=== PATIENT | female | born 1955 | race Caucasian/White ===

== ENCOUNTER 2024-04-09 09:28 | Outpatient (OUT) | payer MEDICARE, SELFPAY ==
--- NOTE | 2024-04-09 | XR_ITS ---
The [address] [address] Patient Name: FLORINDA JAMESON MRN: [id number] date: 1955 Sex: F Assigned Patient Location: Current Patient Location: Accession/Order Number: [id number] Exam Date: 04/09/2024 09:29 Report Date: 04/12/2024 10:23 At the request of: RADHA AGOSTO Procedure: XR foot RT min 3V PROCEDURE: XR foot RT min 3V HISTORY: RIGHT FOOT PAIN COMPARISON: XR foot right 12/25/2022 FINDINGS: BONES:Mechanical fusion of the talocalcaneal joint, talonavicular and calcaneocuboid joints, osteotomy and repair of first metatarsal, effusion of the first toe interphalangeal joint. No appreciable hardware fracture or loosening. SOFT TISSUES:Mild soft tissue swelling distal dorsal foot. EFFUSION:None visible. OTHER: Negative. XR/XR foot RT min 3V IMPRESSION: 1. Stable surgical changes without evidence of hardware failure or change in alignment. 2. No appreciable acute bone abnormality. 3. Mild dorsal soft tissue swelling. Electronically authenticated by: CAMI WARREN Date: 04/12/2024 10:23
== END 2024-04-09 09:29 | disposition home or self-care (01) ==
PROVIDERS: Visit Provider Podiatrist Foot & Ankle Surgery
DX: M79.671 Pain in right foot (principal); M24.674 Ankylosis, right foot
CPT/HCPCS: 73630

== ENCOUNTER 2025-01-04 11:41 | Outpatient (OUT) | payer MEDICARE, SELFPAY ==
--- NOTE | 2025-01-04 11:50 | XR_ITS ---
The [address] [address] Patient Name: FLORINDA JAMESON MRN: [id number] date: 1955 Sex: F Assigned Patient Location: [facility] Current Patient Location: [facility] Accession/Order Number: [id number] Exam Date: 01/04/2025 12:07 Report Date: 01/04/2025 12:11 At the request of: RADHA AGOSTO DPYusuf Procedure: XR foot RT min 3V RIGHT FOOT - 3 views CLINICAL DATA: Foot pain, greatest at the second toe where there is . Edema, bruising and swelling. Previous foot surgeries COMPARISON: 04/09/2024 AP, lateral and oblique views were obtained. There is a screw through the phalanges of the first toe and a dorsal orthopedic staple. There is a plate along the shaft of the first metatarsal. There are also plates and screws in the tarsal region. The hardware is present previously there is no change. There is chronic deformity at the calcaneus. There is no acute fracture or dislocation. There is some degenerative change in the tarsal metatarsal region. There are no significant soft tissue abnormalities. XR/XR foot RT min 3V IMPRESSION: POSTOPERATIVE AND CHRONIC BONY CHANGES. NO ACUTE BONY FINDINGS. Impression dictated by: Anna Varela M.D. 01/04/2025 12:11 PM Dictation Location: [place] [address] Electronically authenticated by: [id number] Y Date: 01/04/2025 12:11
== END 2025-01-04 11:42 | disposition home or self-care (01) ==
LOC: RAD 11:46
PROVIDERS: PCP Internal Medicine; Visit Provider Podiatrist Foot & Ankle Surgery
DX: M79.672 Pain in left foot (principal)
CPT/HCPCS: 73630

== ENCOUNTER 2025-01-21 13:44 | Outpatient (OUT) | payer MEDICARE, SELFPAY ==
--- OUTSIDE RECORDS SUMMARY | 2024-04-09 05:30 | XMS_ITS ---
Author Organization The [facility] [place] Address [address] [place] [address] Care Team Providers Care Hydrodynamicist Name Role Phone None, Unknown or Primary Care Provider Unavailab Jadiel Norwood Unavailable [phone] Allergies No Known Allergies REASON FOR VISIT RT FOOT PAIN Medications Medication SIG (Take, Route, Frequency, Duration) Notes Start Date End Date Status trazodone Active Atorvastatin Calcium 10 MG 1 tablet Oral ly Once a day for 30 day(s) Active Escitalopram Oxalate 20 MG 1 tablet Oral ly Once a day for 30 day(s) Active clonazePAM 1 MG 1 tablet Orally Once a day Active Triamterene-HCTZ 37.5-25 MG 1 tablet in the morning Orally Once a day for 30 day(s) Active rOPINIRole HCl tablet Acti ve predniSONE 10 MG 3 tablets once a day for 3 days, 2 tablets once a day for 3 days, 1 tablet once a day for 3 days Orally once a day for 9 days 04/09/2024 Active Simvastatin tablet Active tiZANidine HCl tablet Acti ve tiZANidine HCl 4 MG Oral for 30 Days Active Modafinil 100 MG 1 tablet in the morn ing Orally Once a day Active Losartan Potassium 100 MG 1 tablet Orall y Once a day for 30 day(s) Active amLODIPine Besylate 5 MG Oral for 90 Days Active Indapamide 2.5 MG 1 tablet in the morn ing Orally Once a day for 30 day(s) Active Social History Tobacco Use: Social History Observation Description Date Details (start date - stop date) Never Smoker NA - NA Tobacco Use/Smoking Question Answer Notes Patient is a nonsmoker Section Notes: Never Smoked Vital Signs Temperature 97.2 degrees Fahrenheit 04/09/20 Heart Rate 77 /min 04/09/2024 Height 63 in 04/09/2024 Weight 150 lbs 04/09/2024 BMI 26.57 kg/m2 04/09/2024 Oximetry 99 % 04/09/2024 Encounters Encounter Location Date Provider Diagnosis [facility] (PODIATRY) [address] [place] [address] [place] [address] 04/09/2024 Jadiel Nunes Pain in right foot M79.671 ; Pain due to internal orthopedic prosthetic devices, implants and grafts, initial encounter T84.84XA ; Presence of functional implant, unspecified Z96.9 and Other specified disorders of bone, ankle and foot M89.8X7 Assessments Encounter Date Diagnosis (ICD Code) Assessment Notes Treatment Notes Treatment Clinical Notes Section Notes 04/09/2024 Pain in right foot (ICD-10 - M79.671) 04/09/2024 Pain due to internal orthopedic prosthetic devices, implants and grafts, initial encounter (ICD-10 - T84.84XA) Patient presents relating to new onset right foot pain which she has a long history with requiring multiple surgeries and history of stress fracture. She relates that she had been on her feet a lot over the fair and was concerned she had a stress fracture. No clear evidence of stress fracture today and her pain seems to be directly over the hardware over her calcaneocuboid joint which includes a plate and screws as well as a suture button. I briefly discussed potential need of removing it but given that this is the first time that she has had pain in the year she would like to continue nonsurgical treatment. I recommended Voltaren topical as well as to take prednisone if needed over an upcoming vacation. She will follow-up in 6 months with repeat weightbearing x-rays call sooner if needed 04/09/2024 Presence of functional implant, unspecified (ICD-10 - Z96.9) 04/09/2024 Other specified disorders of bone, ankle and foot (ICD-10 - M89.8X7) Plan Of Treatment Medication Medication Name Sig Start Date Stop Date Notes predniSONE 10 MG 3 tablets once a day for 3 days, 2 tablets once a day for 3 days, 1 tablet once a day for 3 days Orally once a day for 9 days 04/09/2024 Treatment Notes Assessment Notes Pain due to internal orthope dic prosthetic devices, implants and grafts, initial encounter Patient presents relating to new onset r ight foot pain which she has a long history with requiring multiple surgeries and history of stress fracture. She relates that she had been on her feet a lot over the fair and was concerned she had a stress fracture. No clear evidence of stress fracture today and her pain seems to be directly over the hardware over her calcaneocuboid joint which includes a plate and screws as well as a suture button. I briefly discussed potential need of removing it but given that this is the first time that she has had pain in the year she would like to continue nonsurgical treatment. I recommended Voltaren topical as well as to take prednisone if needed over an upcoming vacation. She will follow-up in 6 months with repeat weightbearing x-rays call sooner if needed Pending Test Test Name Order Date XR Foot RT (3 views) * 04/09/2024 Progress Notes * QUINTINAshley Anushka ADOB:[birth year] (68 yo F)Acc No.[id number]:04/09/2024 Follow Up Patient: Anushka MOY Provider: Jamaal Nunes DPM MS :1955 A ge:68 Y S ex:Female Date:04/09/2024 Address[facility] [address] [id number] Pcp:Unknown or None Check In:09:26 AM ESTCheck O ut:10:00 AM EST Subjective: * Chief Complaints: * R T FOOT PAIN * HPI: G eneral: Patient returns to clinic for evaluation of right foot pain. She was last seen in the office 5.. She states her right dorsal/lateral foot is painful with activity and her ankle has been more swollen than usual. Her current pain is 3/10 and increases to 7/10 with activity and needs to rest. She does not take anything orally for pain but does rub CBD oil or voltaren gel to the area that sometimes helps. She wears supportive shoes (HOKA). * Active Problem List L03.031 Cellulitis of right toe Modified On:10/18/2022W/U Status:confirmed M25.371 Other instability, r ight ankle Modified On:10/18/2022 Status:confirmed M62.81 Muscle weakness (gen eralized) Modified On:10/18/2022 Status:confirmed M72.2 Plantar fascial fibr omatosis Modified On:10/18/2022 Status:confirmed M76.61 Achilles tendinitis, right leg Modified On:10/18/2022 Status:confirmed M79.671 Pain in right foot Modified On:12/25/2022 Status:confirmed M25.571 Right ankle pain, un specified chronicity Modified On:10/18/2022 Status:confirmed M21.371 Acquired right foot drop Modified On:10/18/2022 Status:confirmed M21.171 Acquired varus defor mity of right foot Modified On:10/18/2022 Status:confirmed R29.898 Weakness of right fo ot Modified On:10/18/2022 Status:confirmed M24.571 Equinus contracture of right ankle Modified On:10/18/2022 Status:confirmed M21.071 Acquired valgus defo rmity of right foot Modified On:10/18/2022 Status:confirmed S86.311A Rupture of peroneal tendon of right foot Modified On:10/18/2022U Status:confirmed M21.6X1 Acquired cavovarus d eformity of right foot Modified On:10/18/2022U Status:confirmed M19.071 Arthritis of foot, r ight Modified On:10/18/2022 Status:confirmed B91 Late effect acute po vernell Modified On:10/18/2022 Status:confirmed M20.41 Hammer toe of right foot Modified On:10/18/2022 Status:confirmed I10 Essential (primary) hypertension Modified On:10/18/2022 Status:confirmed M19.90 Arthritis Modified On:10/18/2022 Status:confirmed E78.00 Pure hypercholestero lemia, unspecified Modified On:02/24/2023W/U Status:confirmed M84.374D Metatarsal stress fr acture of right foot with routine healing Modified On:12/25/2022U Status:confirmed Z96.9 Presence of function al implant, unspecified Modified On:12/25/2022U Status:confirmed M89.8X7 Other specified diso rders of bone, ankle and foot Modified On:12/25/2022/U Status:confirmed * Medical History: * Surgical History: H istory of hysterectomy History of sinus surgery Surgical / procedural history breast surgery Rt Foot Surgery 1986RT Calcaneus Ostectomy 05-05-2017RT Foot Triple Arthrodesis [id number] Cholecystectomy * Hospitalization/Major Diagno stic Procedure: * Family History: M igrated Family History:: Family history of Cancer ;Family history of Diabetes;Family history of Hearing probems;Family history of Heart Disease;Family history of High Blood Pressure;Family history of Ear surgeries;. * Social History: T obacco Use: T obacco Use/Smoking P atient is a n onsmoker N ever Smoked. * Medications: T akingamLODIPine Besylate 5 MG Tablet Oral Atorvastatin Calcium 10 MG Tablet 1 tablet Orally Once a day clonazePAM 1 MG Tablet 1 tablet Orally Once a day Escitalopram Oxalate 20 MG Tablet 1 tablet Orally Once a day Indapamide 2.5 MG Tablet 1 tablet in the morning Orally Once a day Losartan Potassium 100 MG Tablet 1 tablet Orally Once a day Modafinil 100 MG Tablet 1 tablet in the morning Orally Once a day rOPINIRole HCl tablet tablet Simvastatin tablet tablet tiZANidine HCl tablet tablet tiZANidine HCl 4 MG Tablet Oral trazodone Triamterene-HCTZ 37.5-25 MG Tablet 1 tablet in the morning Orally Once a day Taking amLODIPine Besylate 5 MG Tablet Oral Taking Atorvastatin Calcium 10 MG Tablet 1 tablet Orally Once a day Taking clonazePAM 1 MG Tablet 1 tablet Orally Once a day Taking Escitalopram Oxalate 20 MG Tablet 1 tablet Orally Once a day Taking Indapamide 2.5 MG Tablet 1 tablet in the morning Orally Once a day Taking Losartan Potassium 100 MG Tablet 1 tablet Orally Once a day Taking Modafinil 100 MG Tablet 1 tablet in the morning Orally Once a day Taking rOPINIRole HCl tablet tablet Taking Simvastatin tablet tablet Taking tiZANidine HCl tablet tablet Taking tiZANidine HCl 4 MG Tablet Oral Taking trazodone Taking Triamterene-HCTZ 37.5-25 MG Tablet 1 tablet in the morning Orally Once a day * Allergies: N .K.D.A.no[Allergies Verified] Objective: * Vitals: W t:150lbs, Ht: 63 in, Temp:97.2F, HR:77/min, BMI:26.57Index, Pain scale:31-10, Oxygen sat %:99%, Ht-cm: 160.02 cm, Wt-k.04 kg. * Examination: P odiatry Examination: SKIN: s kin intact, n o sign of infection. MUSCULOSKELETAL: P OP lateral midfoot over the sinus tarsi and calcaneocuboid joint over palpable hardware. Hindfoot and midfoot are stable and in a rectus position.. NEUROLOGICAL: l ight touch sensation intact, n egative tinel's sign. VASCULAR: P edal pulses palpable, C apillaryrefill is brisk to toe, D igitalhair intact. X -rays: x-rays were obtained & reviewed in my office. X-rays demonstrate fused hindfoot with stable hardware. Pain appears to be over the calcaneocuboid joint plate and suture button over the lateral cuboid. Assessment: * Assessment: 1. P ain due to internal orthopedic prosthetic devices, implants and grafts, initial encounter - T84.84XA (Primary) 2 . P ain in right foot - M79.671 3 . P resence of functional implant, unspecified - Z96.9 4 . O ther specified disorders of bone, ankle and foot - M89.8X7? Plan: * Treatment: 2. P ain in right foot Start predniSONE Tablet, 10 MG, 3 tablets once a day for 3 days, 2 tablets once a day for 3 days, 1 tablet once a day for 3 days, Orally, once a day, 9 days, 18, Refills 1. I maging: XR Foot RT (3 views) * * Procedure Codes: * * Sign off status: Completed Visit Status: C HK (Check Out) true * Provider: Jamaal Nunes DPM, MS Date: 0 04/09/2024 Generated for Joann contreras/Jeannine/Sharitasmitting on: 0 01/21/2025 01:47 PM EDT History and Physical Notes * HPI (History of Present Illness) Category Sub-Category Detail Notes Category Not es General Patient returns to clinic for evaluation of right foot pain. She was last seen in the office 12.25.2022. She states her right dorsal/lateral foot is painful with activity and her ankle has been more swollen than usual. Her current pain is 3/10 and increases to 7/10 with activity and needs to rest. She does not take anything orally for pain but does rub CBD oil or voltaren gel to the area that sometimes helps. She wears supportive shoes (HOKA). Examination Category Sub-Category Detail Notes Category Not es Podiatry Examination SKIN: skin intact, no sign of infection X-ray s: x-rays were obtained & reviewed in my office. X-rays demonstrate fused hindfoot with stable hardware. Pain appears to be over the calcaneocuboid joint plate and suture button over the lateral cuboid MUSCULOSKELETAL: POP lateral midfoot over the sinus tarsi and calcaneocuboid joint over palpable hardware. Hindfoot and midfoot are stable and in a rectus position. NEUROLOGICAL: light touch sensatio n intact, negative tinel's sign VASCULAR: Pedal pulses palpable, Capillary refill is brisk to toe, Digital hair intact
--- OUTSIDE RECORDS SUMMARY | 2025-01-10 15:15 | XMS_ITS | Encounter Summary ---
Author Organization [facility] Address [address] [place] [address] Care Team Providers Care Professional Application Designer Name Role Phone Eleni Hanson DOCUMENT IMAGING MANAGER Unavailable [phone] Source Comments In the event this information is protected by the Federal Confidentiality of Alcohol and Drug AbusePatient Records regulations: The Federal rules restrict any use of the information to criminally investigate or prosecute any alcohol or drug abuse patient.[facility] Reason for Visit * Reason Comments Follow Up Encounter Details Date Type Department Care Team (Latest Contact Info) Description 01/10/2025 3:15 PM EDT [facility] [address] [place] [address] Jadiel Zelaya MD [address] [place] [address] Closed displaced fracture of nasal bone, sequela (Primary Dx); Refractory obstruction of nasal airway; Incompetent nasal valve; Deviated nasal septum; Sialolith Social History Tobacco Use Types Packs/Day Years Used Date Smoking Tobacco: Never Smokeless Tobacco: Never Alcohol Use Standard Drinks/Week Comments Not Currently 0 (1 standard drink = 0.6 oz pur e alcohol) PHQ-2 Answer Date Recorded PHQ-2 score 4 05/13/2023 Area Deprivation Index Answer Date Shantanu rded National Score (1-100), lower number is lower ri sk 53 03/21/2023 State Score (1-10), lower number is lower risk 3 03/21/2023 Data from: https://www.neighborhoodatlas.medicine.[facility]/. Last address used for calculation [address] 03/21/2023 Comments Unknown Sex and Gender Information Value Date Recorded Sex Assigned at Not on file Legal Sex Female 6:32 PM EDT Gender Identity Not on file Sexual Orientation Not on file documented as of this encounter Progress Notes * Jadiel Zelaya MD - 01/10/2025 3:28 PM EDT Images from the original note were not included. Section of Facial Plastic & Reconstructive Surgery Head and Neck [place], [facility] FOLLOW-UP VIRTUAL VISIT CC: imaging review MODALITY: Zoom Verbal informed consent was obtained for this virtual visit. IMPRESSION & PLAN: history of nasal and orbital fractures s/p ORIF and reconstructive septorhinoplasty. She has significant bony irregularities on exam, resulting in pain and inability to tolerate glasses. In addition to this, she has worsening multifactorial nasal obstruction refractory to medical management. Extensive bony irregularity on exam and imaging. Recommend revision septorhinoplasty, nasal valve repair with donor rib grafting. After discussing the risks, benefits, and alternatives the patient would like to pursue surgery. Informed consent was obtained and the patient will be scheduled at a mutually convenient date. Also has incidentally seen large sialolith on exam. Discussed referral to Dr. iKnney. Jadiel Zelaya MD Facial Plastic and Reconstructive Surgery Head and Neck [place] [facility] 01/10/2025 Greater than 10 minutes were spent directly communicating with the patient via the above listed visit modality. HISTORY: Anushka Perdue is a 69 year old female who returns today for follow up and to review imaging. Facial Plastic History ID: History of reconstructive septorhinoplasty following extensive trauma I reviewed the patient's past medical history, past surgical history, social history, family medical history, allergies, and current medications. PHYSICAL EXAM: Constitutional - no acute distress Communication - communicates without difficulty Psychiatric - oriented to person, place, and time Respiratory - normal respiratory rate Head & Face - no significant scars, masses, or lesions Facial strength - full strength bilaterally Ears - normal morphology Nose - no external deformity; nasal airway patent bilaterally Neck - symmetric; no scars Cranial Nerves - grossly intact IMAGING: I personally reviewed the following radiologic exams: CT nasal bones Soft Tissues: Multiple sialoliths along course of the RIGHT submandibular gland duct. Facial bones: Sequelae of remote facial bone fracture with multiple calcifications/bone fragments extending superiorly. Orbits: No evidence of an acute fracture. The globes are intact. The soft tissue planes of the orbits are maintained. Paranasal Sinuses: The paranasal sinuses are clear. Foreign Bodies: No evidence of radiopaque foreign bodies. Other: No evidence of a remote fracture. No lytic or blastic process seen in the facial bones. Elongated styloid processes bilaterally. PATHOLOGY: I personally reviewed the following pathology reports: NA documented in this encounter Plan of Treatment Upcoming Encounters Date Type Department Care Team (Latest Contact Info) Description 03/29/2025 9:40 AM EDT PAT Pre Anesthesia [address] [place] [address] 2, Pacc [place] [address] [place] [address] pacc 04/12/2025 8:30 AM EDT Hospital Encounter [facility] [address] [place] [address] Jadiel Zelaya MD [address] [place] [address] Closed displaced fracture of nasal bone, sequela [S02.2XXS], 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], 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], Deviated nasal septum [J34.2], Sialolith [K11.5] 04/12/2025 8:30 AM EDT - 04/12/2025 12:30 PM EDT Surgery [facility] [address] [place] [address] Jadiel Zelaya MD [address] [place] [address] REPAIR NASAL VESTIBULAR STENOSIS 04/18/2025 11:45 AM EDT Office Visit Facial Plastics/Reconstruc tion [id number] [facility] [place] [address] Jadiel Zelaya MD [address] [place], [place] [id number] post op Scheduled Procedures Name Priority Associated Diagnoses Date/Ti me REPAIR NASAL VESTIBULAR STENOSIS Closed displaced fracture of nasal bone, sequela 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 Deviated nasal septum Sialolith 04/12/2025 8:30 AM EDT SEPTOPLASTY Closed displaced fracture of nasal bone, sequela 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 Deviated nasal septum Sialolith 04/12/2025 8:30 AM EDT RESECTION SUBMUCOSAL TURBINATES Closed displaced fracture of nasal bone, sequela 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 Deviated nasal septum Sialolith 04/12/2025 8:30 AM EDT documented as of this encounter Visit Diagnoses Diagnosis Closed displaced fracture of nasal bone, sequela- Primary Refractory obstruction of nasal airway Other diseases of nasal cavity and sinuses Incompetent nasal valve Other diseases of nasal cavity and sinuses Deviated nasal septum Sialolith Sialolithiasis Closed displaced fracture of nasal bone, sequela Refractory obstruction of nasal airway Other diseases of nasal cavity and sinuses Incompetent nasal valve Other diseases of nasal cavity and sinuses Deviated nasal septum Sialolith Sialolithiasis documented in this encounter Care Teams Professional Application Designer Relationship Specialty Start Date End Date Eleni Hanson, DOCUMENT IMAGING MANAGER [address] [facility] [address] [place] [address] 12/05/22 documented as of this encounter
--- NOTE | 2025-01-21 13:47 | XR_ITS ---
[place] [address] Patient Name: FLORINDA [place] MRN: [id number] date: 1955 Sex: F Assigned Patient Location: [facility] Current Patient Location: [facility] Accession/Order Number: [id number] Exam Date: 01/21/2025 15:22 Report Date: 01/21/2025 15:24 At the request of: RADHA AGOSTO DPM Procedure: XR ankle RT min 3V 3 views right ankle plain film COMPARISON: 03/28/2010 HISTORY: Acute right ankle pain. Injury. ACUTE FINDINGS: None DEGENERATIVE CHANGE: Similar degenerative change: Old lateral malleolus fracture SOFT TISSUE FINDINGS: Unremarkable JOINT EFFUSION: None POSTOP CHANGES: Stable fixation hardware BONE MINERALIZATION: Adequate XR/XR ankle RT min 3V IMPRESSION: No acute displaced fracture. stable degenerative and postsurgical changes Impression dictated by: Gianluca Austin M.D. 01/21/2025 3:24 PM Dictation Location: [facility] Electronically authenticated by: [id number] Y Date: 01/21/2025 15:24
--- OUTSIDE RECORDS SUMMARY | 2025-01-21 13:47 | XMS_ITS | Encounter Summary ---
Author Organization [facility] tem Address [facility] [address] [place] [address] Care Team Providers Care Pan Devulcanizer Helper Name Role Phone Errol Mejia DO Primary Care Provider Encounter Details Date Type Department Care Team (Late Contact Info) Description 07/29/2022 Orders Only [facility] Internal Medicine - Family Medicine [address] [place] [address] Errol Mejia DO [address] [place] [address] Social History Tobacco Use Types Packs/Day Years Used Date Smoking Tobacco: Never Smokeless Tobacco: Never Alcohol Use Standard Drinks/Week Comments Yes 0 (1 standard drink = 0.6 oz pur e alcohol) occasionally once a year Childcare Answer Date Recorded Childcare Unknown 01/28/2019 Employment Answer Date Recorded Employment Unknown 01/28/2019 Purpose - Life Answer Date Recorded Purpose and direction in life Unknown Comments No Sex and Gender Information Value Date Recorded Sex Assigned at Not on file Legal Sex Female 11:42 AM EDT Gender Identity Not on file Sexual Orientation Not on file COVID-19 Exposure Response Date Recorded In the last month, have you been in contact with someone who was confirmed or suspected to have Coronavirus / COVID-19? No / Unsure 07/11/2022 9:55 AM EST documented as of this encounter Plan of Treatment Upcoming Encounters Date Type Department Care Team (Late st Contact Info) Description 04/12/2025 10:20 AM EDT Office Visit [facility] - Family Medicine [address] [facility] [place] [id number] documented as of this encounter Visit Diagnoses Not on filedocumented in this encounter Additional Health Concerns Infection Onset Date Last Indicated Resolved Time COVID-19 Rule-Out 09/28/2022 09/28/2022 09/28/2022 12:38 PM EST documented as of this encounter Care Teams Pan Devulcanizer Helper Relationship Specialty Start Date End Date Errol Mejia DO [address] [place] [address] PCP - General Internal Medicine 07/23/17 documented as of this encounter
--- OUTSIDE RECORDS SUMMARY | 2025-01-21 13:47 | XMS_ITS | Encounter Summary ---
Author Organization [facility] Address [address] [place] [address] Care Team Providers Care Combat Systems Operator Name Role Phone Errol Mejia MD Primary Care Provider [phone] Reason for Visit * Reason Comments Med Refill Encounter Details Date Type Department Care Team (Late st Contact Info) Description 02/03/2024 Refill [facility]SE K[facility]LEN [address] [place] [phone] Eleni Hanson, LANCE [address] [place] [address] Cervicalgia Social History Tobacco Use Types Packs/Day Years Used Date Smoking Tobacco: Never Smokeless Tobacco: Never Alcohol Use Standard Drinks/Week Comments Never 0 (1 standard drink = 0.6 oz pur e alcohol) Comments Unknown Sex and Gender Information Value Date Recorded Sex Assigned at Not on file Legal Sex Female 7:32 PM EDT Gender Identity Female 01/26/2024 9:26 AM EDT Sexual Orientation Not on file documented as of this encounter Miscellaneous Notes * Telephone Encounter - Lucinda Curry MA - 02/05/2024 12:40 PM EDT Sent tizanidine. Aarononoandres already requested. In review to Eleni * Telephone Encounter - Pilar Main - 02/05/2024 11:50 AM EDT Patient calls for a refill on tizanidine and clonazepam to [facility]. CB # [phone] documented in this encounter Plan of Treatment Not on file documented as of this encounter Visit Diagnoses Diagnosis Cervicalgia documented in this encounter Care Teams Combat Systems Operator Relationship Specialty Start Date End Date Errol Mejia MD [address] [place] [address] PCP - General Internal Medicine 02/02/24 documented as of this encounter
--- OUTSIDE RECORDS SUMMARY | 2025-01-21 13:47 | XMS_ITS | Clinical Summary ---
Author Organization [employer] Address [id number] [address] [place] [address] Care Team Providers Care Pole Setter Name Role Phone SusanErrol denson Lucia PARMAR Primary Care Provider [phone] Allergies No known active allergies Medications tiZANidine (ZANAFLEX) 4 mg tablet Take 1.5 tablets (6 mg total) by mouth nightly. Active clonazePAM (KlonoPIN) 0.5 mg tablet Take 1 tablet (0.5 mg total) by mouth nightly. 04/27/20 18 Active multivitamin (MULTIPLE VITAMINS ORAL) Take 1 tablet by mouth daily. Active modafiniL (PROVIGIL) 100 mg tablet Take 1 tablet (100 mg total) by mouth in the morning. Active atenoloL (TENORMIN) 25 mg tablet Take 1 tablet (25 mg total) by mouth in the morning. Active rizatriptan GAS TECHNICIAN (MAXALT-GAS TECHNICIAN) 10 mg disintegrating tablet 05/02/20 22 Active pantoprazole (PROTONIX) 40 mg EC tabletIndications: Heartburn TAKE ONE TABLET BY MOUTH DAILY 90 tablet 1 12/23/19 23 Active escitalopram (LEXAPRO) 20 mg tablet Take 1 tablet (20 mg total) by mouth. 02/27/20 23 Active ezetimibe (ZETIA) 10 mg tabletIndications: Hyperlipidemia, unspecified hyperlipidemia type take 1 tablet by mouth every morning 90 tablet 1 05/20/20 24 Active chlorhexidine (PERIDEX) 0.12 % solution 08/03/20 24 Active ibuprofen (MOTRIN) 600 mg tablet 08/03/20 24 Active amoxicillin (AMOXIL) 500 mg capsule Take 1 capsule (500 mg total) by mouth 3 (three) times a day. Active acetaminophen (TYLENOL EXTRA STRENGTH) 500 mg tablet Take 1 tablet (500 mg total) by mouth every 6 (six) hours as needed for pain. Active potassium chloride (K-TAB,KLOR-CON) 20 mEq CR tabletIndications: Essential hypertension TAKE 1 TABLET BY MOUTH EVERY MORNING 90 tablet 1 08/16/20 24 Active atorvastatin (LIPITOR) 40 mg tabletIndications: Hyperlipidemia, unspecified hyperlipidemia type TAKE 1 TABLET BY MOUTH EVERY MORNING 90 tablet 1 08/16/20 24 Active indapamide (LOZOL) 2.5 mg tabletIndications: Essential hypertension TAKE 1 TABLET BY MOUTH EVERY OTHER DAY 45 tablet 1 08/19/20 24 Active losartan (COZAAR) 100 mg tabletIndications: Essential hypertension TAKE 1 TABLET BY MOUTH EVERY MORNING 90 tablet 1 10/31/19 25 Active valACYclovir (VALTREX) 1000 mg tabletIndications: Herpes simplex type 1 infection TAKE 1 TABLET BY MOUTH DAILY NEEDED 10 tablet 1 11/24/19 25 Active amLODIPine (NORVASC) 5 mg tabletIndications: Essential hypertension TAKE 1 TABLET BY MOUTH DAILY 90 tablet 1 01/02/20 25 Active amLODIPine (NORVASC) 5 mg tabletIndications: Essential hypertension TAKE 1 TABLET BY MOUTH DAILY 90 tablet 1 07/07/20 24 025 Discontinued Active Problems Problem Noted Date Diagnosed Date Spinal stenosis of lumbar re gion with neurogenic claudication 04/15/2024 Right bundle branch block 06/10/2022 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 08/14/18: Urine culture positive and treated. Repeat cysto with hydrodistention 09/22/18: Improved but persistent urgency and frequency. Urine sent for repeat culture. Options discussed. Plan trial of oxybutynin extended-release. She would like to use this on as needed basis with traveling which is reasonable. Essential hypertension 03/20/2017 Osteopenia 12/08/2015 Resolved Problems Problem Noted Date Diagnosed Date Resolved Date Superficial nonerosive nonspecific gastritis 1 06/10/2022 Encounters Date Type Department Care Team Description 01/05/2025 Orders Only [facility] - [facility] [address] [place] [address] Ref Prov, Not In System 01/01/2025 Refill [facility] - Family [facility] [address] [place] [address] Errol Mejia, DO Essential hypertension 11/23/2024 Refill [facility] - [facility] [address] [place] [address] Errol Mejia, DO Herpes simplex type 1 infection 10/30/2024 Refill [facility] - Family [facility] [address] [facility] [place] [address] Errol Mejia, Essential hypertension from Last 3 Months Immunizations Immunization Administration Dates Next Due Influenza (IM) Preservative Free 06/11/2016,04/26 Influenza, High-dose, Quadrivalent 07/31/2022, Influenza, Im Trivalent Preservative 05/31/2020, 06/07/2019 Influenza, Injectable, MDCK, Quadrivalent 2018 Influenza, Injectable, Mdck, Preservative Free, Quad 09/25/2017 Tdap 08/26/2023,08/12/2012 Zoster Vaccine Recombinant 08/08/2020,05/31/2020 Family History Medical History Relation Name Comments Diabetes type II Brother 1 Hyperlipidemia Brother 1 Hypertension Brother 1 Hyperlipidemia Brother 2 Hypertension Brother 2 Kidney disease Daughter 2 Cancer Father Coronary artery disease Father Heart disease Father Lung disease Father Stroke Father Coronary artery disease Mother Heart disease Mother Kidney disease Mother Breast cancer Sister 1 Coronary artery disease Sister 1 Diabetes type II Sister 1 Diabetes type II Sister 2 Hypertension Sister 2 Rheum arthritis Sister 2 Anesthesia problems Neg Hx Scot Breast Cancer Neg Hx Relation Name Status Comments Brother 1 Brother 2 Daughter 1 Daughter 2 Alive Father Mother Sister 1 Alive Sister 2 Son Alive Social History Tobacco Use Types Packs/Day Years Used Date Smoking Tobacco: Never Smokeless Tobacco: Never Tobacco Cessation:Counseling Given: Not Answered Alcohol Use Standard Drinks/Week Comments Yes 0 (1 standard drink = 0.6 oz pur e alcohol) occasionally once a year [facility] Utilities Answer Date Recorded In the past 12 months has e electric, gas, oil, or water company threatened to shut off services in your home? No 04/08/2024 Social Connection and Isolat ion Panel [NHANES] Answer Date Recorded In a typical week, how many times do you talk on the phone with family, friends, or neighbors? More than three times a week 04/03/2023 How often do you get togethe r with friends or relatives? More than three times a week 04/03/2023 How often do you attend chur ch or mandaen services? More than 4 times per year 04/03/2023 Do you belong to any clubs o r organizations such as moravian groups, unions, fraternal or athletic groups, or school groups? No 04/03/2023 How often do you attend meet ings of the clubs or organizations you belong to? Never 04/03/2023 Are you , , di vorced, , never , or living with a partner? 04/03/2023 AUDIT-C Answer Date Recorded Q1: How often do you have a drink containing alcohol? Never 04/03/2023 Q2: How many drinks containi ng alcohol do you have on a typical day when you are drinking? Patient does not drink Q3: How often do you have si x or more drinks on one occasion? Never 04/03/2023 Overall Financial Resource Strain (CARDIA) Answe r Date Recorded How hard is it for you to pa y for the very basics like food, housing, medical care, and heating? Not hard at all 04/03/2023 PHQ-2 Answer Date Recorded Total Score 0 08/04/2024 [facility] Occup[facility] ional Health - Occupational Stress Questionnaire Answer Date Recorded Do you feel stress - tense, restless, nervous, or anxious, or unable to sleep at night because your mind is troubled all the time - these days? Very much 04/08/2024 Exercise Vital Sign Answer Date Recorde d On average, how many days pe r week do you engage in moderate to strenuous exercise (like a brisk walk)? 7 days 04/03/2023 On average, how many minutes do you engage in exercise at this level? 30 min 04/03/2023 PRAPARE - Transportation Answer Date Re corded In the past 12 months, has l ack of transportation kept you from medical appointments or from getting medications? No 03/25 In the past 12 months, has l ack of transportation kept you from meetings, work, or from getting things needed for daily living? No 04/03/2023 Housing Instability Answer Date Recorde d Are you worried or concerned that in the next two months you may not have stable housing that you own, rent or stay in as a part of a household? No 04/03/2023 Childcare Answer Date Recorded Do problems getting child ca re make it difficult for you to work or study? No 04/03/2023 Employment Answer Date Recorded Do you need help finding a [facility] career center and/or a training program? No 04/03/2023 Hunger Screening Answer Date Recorded Within the past 12 months we worried whether our food would run out before we got money to buy more. Never True 10/05/2024 Within the past 12 months th e food we bought just didn't last and we didn't have money to get more. Never True 10/05/2024 Purpose - Life Answer Date Recorded I have a purpose and direction in my life. Agree 04/03/2023 Comments No Sex and Gender Information Value Date Recorded Sex Assigned at Not on file Legal Sex Female 11:42 AM EDT Gender Identity Not on file Sexual Orientation Not on file Last Filed Vital Signs Vital Sign Reading Time Taken Comments Blood Pressure 100/75 10/05/2024 10:56 AM EST Pulse 72 10/05/2024 10:56 AM EST Temperature 35.7 C (96.2 F) 09/03/2024 8:25 AM EST Respiratory Rate 20 10/05/2024 10:56 AM EST Oxygen Saturation 97% 09/03/2024 9:09 AM EST Inhaled Oxygen Concentration - - Weight 66.2 kg (146 lb) 08/26/2024 8:27 AM EST Height 162.6 cm (5' 4 ) 08/26/2024 8:27 AM EST Body Mass Index 25.06 08/26/2024 8:27 AM EST Plan of Treatment Upcoming Encounters Date Type Department Care Team (Late st Contact Info) Description 04/12/2025 10:20 AM EDT Office Visit [facility] - [facility] Medicine [address] [place] [address] Health Maintenance Due Date Last Done Comments Adult BMI Follow Up Plan 11/30/1973 COVID-19 Vaccine ( season) 2024 06/03/2024, 05/29/2023, 05/27/2022, Additional history exists Medicare Annual Wellness Visit 04/08/2025 04/08/2024, 04/03/2023 Influenza Vaccine 04/25/2025 06/03/2024, , 07/31/2022, Additional history exists Depression Screening 08/04/2025 08/04/2024 Fall Risk Screening 08/04/2025 08/04/2024 Adult BMI Screening 08/26/2025 08/26/2024 Tobacco Screening 10/05/2025 10/05/2024 Colonoscopy 01/24/2028 Postponed from 11/30/2000 (Not Indicated) DTaP,Tdap and Td Vaccines (3 - Td or Tdap) 08/26/2033 08/26/2023, 08/12/2012 Zoster (Shingles) Vaccine Completed 08/08/2020, 02/2020 Medical Devices Implanted Type Area Clay Transporter Device Identifier Shelf Expiration Date Model / Serial / Lot Right Foot Procedures Procedure Name Priority Date/Time Associated Diagnosis Comments XR FOOT RT MIN 3 VWS Routine 01/04/2025 7:14 AM EDT from Last 3 Months Results * X-ray foot right minimum 3 views (01/04/2025 7:14 AM EDT) Anatomical Region Laterality Modality Lower Extremities, MSK, Foot Right Com puted Radiography us Not In System Ref Prov IMG DIAGNOSTIC IMAGING OR DERABLES Final Result from Last 3 Months Insurance [employer] MEDICARE Care Teams Pole Setter Relationship Specialty Start Date End Date Errol Mejia DO [address] [place] [address] PCP - General Internal Medicine 07/23/17
--- OUTSIDE RECORDS SUMMARY | 2025-01-21 13:47 | XMS_ITS | Encounter Summary ---
Author Organization [employer] Address [id number] [address] [place] [address] Care Team Providers Care Liquefied Natural Gas Operator Name Role Phone Errol Mejia DO Primary Care Provider [phone] Encounter Details Date Type Department Care Team (Late st Contact Info) Description 06/10/2022 [facility] [address] [place] [address] Errol Mejia DO [address] [place] [address] Social History Tobacco Use Types Packs/Day Years [...] have Coronavirus / COVID-19? No / Unsure 05/15/2022 12:29 PM EDT documented as of this encounter Miscellaneous Notes * Telephone Encounter - Jenna Reed - 06/10/2022 10:11 AM EDT Pt would like a lab order sent to [facility] prior to her seeing you in June. Thanks documented in this encounter Plan of Treatment Upcoming Encounters Date Type Department Care Team (Late st Contact Info) Description 04/12/2025 10:20 AM EDT Office Visit [facility] Internal Medicine - Family Medicine [address] [place] [address] documented as of this encounter Visit Diagnoses Not on filedocumented in this encounter Additional Health Concerns Infection Onset Date Last Indicated Resolved Time COVID-19 Rule-Out 09/28/2022 09/28/2022 09/28/2022 12:38 PM EST documented as of this encounter Care Teams Liquefied Natural Gas Operator Relationship Specialty Start Date End Date Errol Mejia DO [address] [facility] [place] [address] PCP - General Internal Medicine 07/23/17 documented as of this encounter
--- OUTSIDE RECORDS SUMMARY | 2025-01-21 13:47 | XMS_ITS | Encounter Summary ---
Author Organization [facility] [employer] Address [id number] [address] [place] [address] Care Team Providers Care Seam Presser Name Role Phone SusanErrol denson Lucia PARMAR Primary Care Provider [phone] Encounter Details Date Type Department Care Team (Late st Contact Info) Description 01/05/2025 [facility] [address] [place] [address] Ref Prov, [place] [address] Social History Tobacco Use Types Packs/Day Years Used Date Smoking Tobacco: Never Smokeless Tobacco: Never Alcohol Use Standard Drinks/Week Comments Yes 0 (1 standard drink = 0.6 oz pur e alcohol) occasionally once a year [facility] Utilities Answer Date Recorded In the past 12 months has [employer] electric, gas, oil, or water company threatened [...] often do you attend chur ch or rastafari services? More than 4 times per year 04/03/2023 Do you belong to any clubs o r organizations such as cheondoism groups, unions, fraternal or athletic groups, or [...] Answer Date Recorded Total Score 0 08/04/2024 [facility] of Occupat ional Health - Occupational Stress [...] Recorded Do you need help finding a [facility] career center and/or a training program? No [...] on file documented as of this encounter Plan of Treatment Upcoming Encounters Date Type Department Care Team (Late st Contact Info) Description 04/12/2025 10:20 AM EDT Office Visit [facility] - Family Medicine [address] [place] [address] documented as of this encounter Procedures Procedure Name Priority Date/Time Associated Diagnosis Comments XR FOOT RT MIN 3 VWS Routine 01/04/2025 7:14 AM EDT documented in this encounter Results * X-ray foot right minimum 3 views (01/04/2025 7:14 AM EDT) Anatomical Region Laterality Modality Lower Extremities, MSK, Foot Right Com puted Radiography us Not In System Ref Prov IMG DIAGNOSTIC IMAGING OR DERABLES Final Result documented in this encounter Visit Diagnoses Not on filedocumented in this encounter Additional Health Concerns Assessment Noted Time PHQ-9 Depression Total Score: 0 08/04/20 24 2:04 PM EST documented as of this encounter Care Teams Seam Presser Relationship Specialty Start Date End Date Errol Mejia DO [address] [place] [address] PCP - General Internal Medicine 07/23/17 documented as of this encounter
--- OUTSIDE RECORDS SUMMARY | 2025-01-21 13:47 | XMS_ITS | Encounter Summary ---
Author Organization [facility] [employer] Address [id number] [address] [place] [address] Care Team Providers Care Inseminator Name Role Phone Errol Mejia DO Primary Care Provider [phone] Reason for Visit * Reason Comments Med Refill Encounter Details Date Type Department Care Team (Late st Contact Info) Description 10/25/2022 Refill [facility] - Family Medicine [address] [place] [address] Errol Mejia DO [address] [place] [address] Essential hypertension Social History Tobacco Use Types Packs/Day Years Used Date Smoking Tobacco: Never Smokeless Tobacco: Never Alcohol Use Standard Drinks/Week Comments Yes 0 (1 standard drink = 0.6 oz pur e alcohol) occasionally once a year PHQ-2 Answer Date Recorded Total Score 0 10/01/2022 Childcare Answer Date Recorded Childcare Unknown 01/28/2019 [...] or suspected to have Coronavirus / COVID-19? Unable to assess 10/24/2022 12:39 PM EST documented as of this encounter Plan of Treatment Upcoming Encounters Date Type Department Care Team (Late st Contact Info) Description 04/12/2025 10:20 AM EDT Office Visit [facility] - Family Medicine [address] [place] [address] documented as of this encounter Visit Diagnoses Diagnosis Essential hypertension Unspecified essential hypertension documented in this encounter Additional Health Concerns Assessment Noted Time PHQ-9 Depression Total Score: 0 10/01/19 12:16 PM EST documented as of this encounter Care Teams Inseminator Relationship Specialty Start Date End Date Errol Mejia DO [address] [place] [address] PCP - General Internal Medicine 07/23/17 documented as of this encounter
--- OUTSIDE RECORDS SUMMARY | 2025-01-21 13:47 | XMS_ITS | Encounter Summary ---
Author Organization [facility] Address [address] [place] [address] Care Team Providers Care Dynamics Ax Consultant Name Role Phone Eleni Hanson SILK WASHING MACHINE OPERATOR Unavailable [phone] Source Comments In the event this information is protected by the Federal Confidentiality of Alcohol and Drug AbusePatient Records regulations: The Federal rules restrict any use of the information to criminally investigate or prosecute any alcohol or drug abuse patient.[facility] Encounter Details Date Type Department Care Team (Late st Contact Info) Description 12/06/2024 Patient Msg Head [facility] Neck [place] [address] [place] [address] Provider, [facility] Appointment Information Social History Tobacco Use Types Packs/Day Years [...] is lower risk 3 03/21/2023 Data from: https://www.neighborhoodatlas.medicine.[facility].edu/. Last address used for calculation [address] [address] 03/21/2023 Comments Unknown Sex and Gender Information Value Date Recorded Sex Assigned at Not on file Legal Sex Female 6:32 PM EDT Gender Identity Not on file Sexual Orientation Not on file documented as of this encounter Plan of Treatment Upcoming Encounters Date Type Department Care Team (Latest Contact Info) Description 03/29/2025 9:40 AM EDT PAT Pre Anesthesia [address] [place] [address] 2, Pacc [place] [address] [place] [address] pacc 04/12/2025 8:30 AM EDT Hospital Encounter [facility] [address] [place] [address] Jadiel Zelaya MD [address] [place] [address] Closed displaced fracture of nasal bone, sequela [S02.2XXS], 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], 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], Deviated nasal septum [J34.2], Sialolith [K11.5] 04/12/2025 8:30 AM EDT - 04/12/2025 12:30 PM EDT Surgery [facility] [address] [place] [address] Jadiel Zelaya MD [address] [place] [address] REPAIR NASAL VESTIBULAR STENOSIS 04/18/2025 11:45 AM EDT Office Visit [facility]Reconstruc tion [address] [place] [address] Jadiel Zelaya MD [address] [place] [address] post op Scheduled Procedures Name Priority Associated [...] Diagnoses Not on filedocumented in this encounter Care Teams Dynamics Ax Consultant Relationship Specialty Start Date End Date Eleni Hanson, SILK WASHING MACHINE OPERATOR [address] [place] [address] 12/05/22 documented as of this encounter
--- OUTSIDE RECORDS SUMMARY | 2025-01-21 13:47 | XMS_ITS | Encounter Summary ---
Author Organization [facility] Address [address] [place] [address] Care Team Providers Care Anime Designer Name Role Phone Eleni Hanson SUPERVISOR SILVERING DEPARTMENT Unavailable [phone] Source Comments In the event this information is protected by the Federal Confidentiality of Alcohol and Drug AbusePatient Records regulations: The Federal rules restrict any use of the information to criminally investigate or prosecute any alcohol or drug abuse patient.[facility] Encounter Details Date Type Department Care Team (Late st Contact Info) Description 01/18/2025 Patient Msg Facial Plastics/[place] [address] [place], [place] [id number] Jadiel Zelaya MD [facility] [place] [address] Appointment Request Social History Tobacco Use Types Packs/Day Years Used Date Smoking Tobacco: Never Smokeless Tobacco: Never Alcohol Use Standard Drinks/Week Comments Not Currently 0 (1 standard drink = 0.6 oz pur e alcohol) PHQ-2 Answer Date Recorded PHQ-2 score 4 05/13/2023 Area Deprivation Index Answer Date Shantanu rded National Score (1-100), lower number is lower ri 53 03/21/2023 State Score (1-10), lower number is lower risk 3 03/21/2023 Data from: https://www.neighborhoodatlas.[facility].edu/. Last address used for calculation [address] 03/21/2023 Comments Unknown Sex and Gender Information Value Date Recorded Sex Assigned at Not on file Legal Sex Female 6:32 PM EDT Gender Identity Not on file Sexual Orientation Not on file documented as of this encounter Plan of Treatment Upcoming Encounters Date Type Department Care Team (Latest Contact Info) Description 03/29/2025 9:40 AM EDT PAT Pre Anesthesia [address] [place] [address] 2, Pacc [place] [address] [place] [address] pacc 04/12/2025 8:30 AM EDT Hospital Encounter [facility] Surgery [address] [place] [address] Jadiel Zelaya MD [address] [place] [address] Closed displaced fracture of nasal bone, sequela [S02.2XXS], 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], 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], Deviated nasal septum [J34.2], Sialolith [K11.5] 04/12/2025 8:30 AM EDT - 04/12/2025 12:30 PM EDT Surgery [facility] Surgery [address] [place] [address] Jadiel Zelaya MD [address] [place], [place] [id number] REPAIR NASAL VESTIBULAR STENOSIS 04/18/2025 11:45 AM EDT Office Visit Facial Plastics/Reconstruc tion [address] [place] [address] Jadiel Zelaya MD [address] [place] [address] post op Scheduled Procedures Name [...] on filedocumented in this encounter Care Teams Anime Designer Relationship Specialty Start Date End Date Eleni Hanson, SUPERVISOR SILVERING DEPARTMENT [address] [facility] [address] [place] [address] 12/05/22 documented as of this encounter
--- OUTSIDE RECORDS SUMMARY | 2025-01-21 13:47 | XMS_ITS | Encounter Summary ---
Author Organization [facility] Address [address] [place] [address] Care Team Providers Care Appliances Sample Maker Name Role Phone Eleni Hanson DRAPERY SEAMSTRESS Unavailable [phone] Source Comments In the event this information is protected by the Federal Confidentiality of Alcohol and Drug AbusePatient Records regulations: The Federal rules restrict any use of the information to criminally investigate or prosecute any alcohol or drug abuse patient.[facility] Encounter Details Date Type Department Care Team (Late st Contact Info) Description 12/03/2024 Get Medical Advice Facial Plastics/Reconstructio n [address] [place], [place] [id number] Jadiel Zelaya MD [facility] [place] [address] Test results Social History Tobacco Use Types Packs/Day Years [...] is lower risk 3 03/21/2023 Data from: https://www.neighborhoodatlas.[facility].edu/. Last address used for calculation [address] 03/21/2023 Comments Unknown Sex and Gender Information Value Date Recorded Sex Assigned at Not on file Legal Sex Female 6:32 PM EDT Gender Identity Not on file Sexual Orientation Not on file documented as of this encounter Miscellaneous Notes * Telephone Encounter - Mounika Canchola RN - 12/03/2024 1:14 PM EDT LV 11/15/24, impression and plan copied from visit below: IMPRESSION& PLAN: Anushka Perdue is a 68 year old female with a history of nasal and orbital fractures s/p ORIF and reconstructive septorhinoplasty. She has significant bony irregularities on exam, resulting in pain and inability to tolerate glasses. In addition to this, she has worsening multifactorial nasal obstruction refractory to medical management. Given history of trauma / plating and severe irregularity, recommend CT facial bones to further characterize her anatomy and for surgical planning purposes. I will contact her with the results of the scan, we can plan for a virtual visit to review the plan. 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], 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], Deviated nasal septum [J34.2], Sialolith [K11.5] 04/12/2025 8:30 AM EDT - 04/12/2025 12:30 PM EDT Surgery [facility] Surgery [address] [place] [address] Jadiel Zelaya MD [address] [place], [place] [id number] REPAIR NASAL VESTIBULAR STENOSIS 04/18/2025 11:45 AM EDT Office Visit Facial Plastics/Reconstruc tion [address] [place] [address] Jadiel Zelaya MD [address] [place], [place] [id number] post op Scheduled Procedures Name Priority Associated [...] on filedocumented in this encounter Care Teams Appliances Sample Maker Relationship Specialty Start Date End Date Eleni Hanson, DRAPERY SEAMSTRESS [address] [place] [address] 12/05/22 documented as of this encounter
--- OUTSIDE RECORDS SUMMARY | 2025-01-21 13:47 | XMS_ITS | Clinical Summary ---
Author Organization [facility] Address [address] [place] [address] Care Team Providers Care Circular Ripsaw Operator Name Role Phone Errol Mejia MD Primary Care Provider [phone] Allergies No known active allergies Medications potassium chloride (Klor-Con) 20 MEQ packet Take 20 mEq by mouth Daily 1 packet with food Active Ferrous Sulfate (iron) 325 (65 Fe) MG tablet Take 1 tablet by mouth Daily with an OTC vitamin C Active amLODIPine (Norvasc) 5 MG tablet Take 5 mg by mouth in the morning. 4 Active indapamide (Lozol) 2.5 MG tablet Take 1 tablet by mouth every other day 3 Active losartan (Cozaar) 100 MG tablet Take 1 tablet by mouth in the morning. 4 Active atorvastatin (Lipitor) 20 MG tablet Take 20 mg by mouth Daily Active rizatriptan STREET DEPARTMENT DISPATCHER (Maxalt-STREET DEPARTMENT DISPATCHER) 10 MG disintegrating tablet Take 10 mg by mouth 1 (one) time if needed for migraine 1 po at onset of migraine and may repeat with 1 po after 2 hours max 2/day, 2 days/wk 3 Active ezetimibe (Zetia) 10 MG tablet Take 1 tablet by mouth in the morning. 4 Active tiZANidine (Zanaflex) 4 MG tabletIndications:C ervicalgia TAKE 1.5 TO 2 TABLETS BY MOUTH EVERY NIGHT AT BEDTIME 60 tablet 1 5 Active modafinil (Provigil) 100 MG tabletIndications:D aytime hypersomnolence TAKE 1 TABLET BY MOUTH EVERY MORNING 30 tablet 2 5 Active escitalopram (Lexapro) 20 MG tabletIndications:D epression, unspecified depression type (CMS/HCC) TAKE 1 TABLET BY MOUTH DAILY 90 tablet 5 Active fluticasone (Flonase) 50 MCG/ACT nasal spray 2 sprays in the morning. 5 05/14/20 25 Active valACYclovir (Valtrex) 1 g tablet Daily as needed 5 Active clonazePAM (KlonoPIN) 0.5 MG tabletIndications:P LMD (periodic limb movement disorder) Take 1-2 at bedtime 60 tablet 2 5 Active Active Problems Problem Noted Date Diagnosed Date Paresthesia of skin 02/02/2024 Ocular migraine 02/02/2024 Anesthesia of skin 02/02/2024 Foot drop, right 02/02/2024 Numbness and tingling 09/14/2019 PLMD (periodic limb movement disorder) 9 Insomnia 03/15/2019 Periodic limb movement disorder 02/19/2018 Periodic limb movement 12/25/2017 Fatigue 12/25/2017 Hypersomnia 12/25/2017 Obstructive sleep apnea 12/25/2017 Muscle spasm 05/29/2015 Fibromyalgia 05/15/2015 Backache 08/09/2014 Disturbance of skin sensation 03/16/2014 Dizziness 08/13/2012 Syndrome affecting cervical region 12/20/2011 Chronic migraine without aur a, with intractable migraine, so stated, with status migrainosus 10/04/2011 Overview (02/02/2024): with refractory migraine, so stated Malaise and fatigue 08/08/2011 Common migraine 01/24/2011 Cervicalgia 11/05/2010 Pain in joint, shoulder region 06/18/2010 Restless legs syndrome (RLS) 12/04/2009 Weight gain, abnormal 07/17/2009 Anemia 01/30/2009 Overview (02/02/2024): Complication - CRF Induced Anemia Headache 01/15/2008 Tension headache 01/15/2008 Anxiety disorder 01/07/2008 Hemiplegia, unspecified affecting unspecified si de 01/07/2008 Acute poliomyelitis, unspecified 01/07/2008 Overview (02/02/2024): poliovirus Migraine 01/07/2008 Depression 01/07/2008 Encounters Date Type Department Care Team Description 12/09/2024 8:20 AM EDT Office Visit [facility] [address] [place], [place] [address], [place] [phone] Eleni Hanson NP Periodic limb movement (Primary Dx); Migraine without aura and without status migrainosus, not intractable (CMS/HCC); Foot drop, right; PLMD (periodic limb movement disorder) 12/09/2024 Bamboo flowsheet JOSE ABDULLAHI [address] [address] Eleni Hanson NP 12/07/2024 Travel 11/30/[address] [phone] Ricardo Kemp MA Error (VOID this visit) 11/29/2024 Refill [facility] [address] [phone] Eleni Hanson NP Daytime hypersomnolence 11/29/2024 Refill JOSE KAYLEN [address] [phone] Herberth Myers MA Daytime hypersomnolence 11/25/2024 Refill [facility] KAYLEN [address] [phone] Eleni Hanson NP Depression, unspecified depression type (CMS/HCC) 10/29/2024 Refill [facility]SE KAYLEN [address] [phone] Eleni Hanson NP Daytime hypersomnolence from Last 3 Months Family History Medical History Relation Name Comments Cancer Father Coronary artery disease Father Coronary artery disease Mother Migraines Mother Breast cancer Sister Coronary artery disease Sister Hyperlipidemia Sister Relation Name Status Comments Father Mother Other Sibling Alive Sister Social History Tobacco Use Types Packs/Day Years Used Date Smoking Tobacco: Never Smokeless Tobacco: Never Alcohol Use Standard Drinks/Week Comments Never 0 (1 standard drink = 0.6 oz pur e alcohol) Comments No Sex and Gender Information Value Date Recorded Sex Assigned at Not on file Legal Sex Female 7:32 PM EDT Gender Identity Female 01/26/2024 9:26 AM EDT Sexual Orientation Not on file Last Filed Vital Signs Vital Sign Reading Time Taken Comments Blood Pressure 124/77 12/09/2024 8:20 AM EDT Pulse 69 12/09/2024 8:20 AM EDT Temperature - - Respiratory Rate - - Oxygen Saturation 97% 05/19/2024 10:21 AM EDT Inhaled Oxygen Concentration - - Weight 68 kg (150 lb) 12/09/2024 8:20 AM EDT Height 162.6 cm (5' 4 ) 12/09/2024 8:20 AM EDT Body Mass Index 25.75 12/09/2024 8:20 AM EDT Plan of Treatment Health Maintenance Due Date Last Done Comments CT Colonography 1955 Colonoscopy 1955 Colorectal Cancer Screening 1955 FIT-DNA 1955 FIT 1955 FOBT 1955 Sigmoidoscopy 1955 Mammogram 04/24/2024 04/24/2023, 12/23, 10/01/2017, Additional history exists Pneumococcal Vaccine: 65+ Years Completed Influenza Vaccine Completed 06/03/2024, , 07/31/2022, Additional history exists Insurance [facility] MEDIC[facility] ADVANTAGE Care Teams Circular Ripsaw Operator Relationship Specialty Start Date End Date Errol Mejia MD [address] [place] [address] PCP - General Internal Medicine 02/02/24
--- OUTSIDE RECORDS SUMMARY | 2025-01-21 13:47 | XMS_ITS | Encounter Summary ---
Author Organization [facility] Address [id number] [address] [place] [address] Care Team Providers Care Assistant Professor Of Economics Name Role Phone Errol Mejia DO Primary Care Provider [phone] Encounter Details Date Type Department Care Team ([facility] Contact Info) Description 06/10/2022 Orders Only [facility] Internal Medicine - Family Medicine [address] [place] [address] Errol Mejia DO [address] [place] [address] Hyperlipidemia, unspecified hyperlipidemia type (Primary Dx) Social History Tobacco Use Types Packs/Day Years [...] PM EDT documented as of this encounter Plan of Treatment Upcoming Encounters Date Type Department Care Team (Late st Contact Info) Description 04/12/2025 10:20 AM EDT Office Visit [facility] - Family Medicine [address] [address] documented as of this encounter Results * Lipid profile (07/08/2022 9:39 AM EST) Cholesterol 191 150 - 200 mg/dL 07/08/2022 2:39 PM EST [facility] Triglycerides 93 27 - 150 mg/dL 07/08/2022 2:39 PM EST [facility] HDL Cholesterol 62 >39 mg/dL 2:39 PM [facility] Comment: HDL <40 mg/dL - High Risk HDL > or = 40mg/dL- Desirable HDL >60 mg/dL - Negative Risk VLDL 19 0 - 30 mg/dL 07/08/2022 2:39 PM EST [facility] LDL (calc) 110 <130 mg/dL 07/08/2022 2:39 PM [facility] Comment: LDL <100 mg/dL - Desirable LDL >160 mg/dL - High Risk Cholesterol:HDL Ratio 3.1 1.0 - 5.0 07/08/2022 2:39 PM EST [facility] PLASMA 07/08/2022 9:39 AM EST 07/08/2022 9:40 AM EST Errol Mejia DO LAB BLOOD ORDERABLES Final Resul t [facility] [address] [facility], [address] [place] [address] * Comprehensive metabolic panel (07/08/2022 9:39 AM EST) Sodium 139 134 - 146 mmol/L 07/08/2022 2:39 PM [facility] Potassium, Bld 3.9 3.5 - 5.0 mmol/L 07/08/2022 2:39 PM [facility] Chloride 104 98 - 109 mmol/L 07/08/2022 2:39 PM [facility] CO2 28 22 - 32 mmol/L 07/08/2022 2:39 PM [facility] Anion gap 7 5 - 15 mmol/L 07/08/2022 2:39 PM [facility] BUN 20 5 - 27 mg/dL 07/08/2022 2:39 PM [facility] Creatinine 0.67 0.40 - 1.00 mg/dL 07/08/2022 2:39 PM [facility] Comment:METHOD TRACEABLE TO IDMS STANDARD Glucose 79 65 - 99 mg/dL 07/08/2022 2:39 PM [facility] Calcium 9.4 8.5 - 10.5 mg/dL 07/08/2022 2:39 PM [facility] Total Protein 6.8 6.0 - 8.0 g/dL 07/08/2022 2:39 PM [facility] Albumin 4.1 3.2 - 5.3 g/dL 07/08/2022 2:39 PM [facility] Alkaline Phosphatase 107 39 - 130 U/L 07/08/2022 2:39 PM [facility] AST 21 0 - 41 U/L 07/08/2022 2:39 PM [facility] ALT 25 0 - 31 U/L 07/08/2022 2:39 PM [facility] Total bilirubin 0.6 0.3 - 1.2 mg/dL 07/08/2022 2:39 PM [facility] eGFR (CKD-EPI)non-rac e dependent >90 >59 ml/min/1.7 3sq.m 07/08/2022 2:39 PM [facility] Comment: Reported eGFR is based on the CKD-EPI 2020 equation that does not use a race coefficient. PLASMA 07/08/2022 9:39 AM EST 07/08/2022 9:40 AM EST Errol Mejia DO LAB BLOOD ORDERABLES Final Resul t [facility] [address] [facility], [address] [place] [address] documented in this encounter Visit Diagnoses Diagnosis Hyperlipidemia, unspecified hyperlipidemia type- Primary documented in this encounter Additional Health Concerns Infection Onset Date Last Indicated Resolved Time COVID-19 Rule-Out 09/28/2022 09/28/2022 09/28/2022 12:38 PM EST documented as of this encounter Care Teams Assistant Professor Of Economics Relationship Specialty Start Date End Date Errol Mejia DO [address] [place] [address] PCP - General Internal Medicine 07/23/17 documented as of this encounter
--- OUTSIDE RECORDS SUMMARY | 2025-01-21 13:47 | XMS_ITS | Encounter Summary ---
Author Organization [employer] [facility] Address [id number] [place] [address] Care Team Providers Care Bookkeeping Machine Mechanic Name Role Phone Errol Mejia Lucia PARMAR Primary Care Provider [phone] Encounter Details Date Type Department Care Team (Late st Contact Info) Description 07/29/2022 Telephone [facility] Internal Medicine - Family Medicine [address] [place] [phone] Cecy Cornelius MA Social History Tobacco Use Types Packs/Day Years [...] AM EST documented as of this encounter Miscellaneous Notes * Telephone Encounter - Cecy Cornelius MA - 07/29/2022 12:42 PM EST Patient called and said you had discussed increasing her Atorvastatin with next refill. She went topick up and it's a 90 day supply of the same dose. She wanted to know if the new dose will start in90 days with her next refill or was this a mistake and she should be taking an increased dose? * Telephone Encounter - Errol Mejia DO - 07/29/2022 12:42 PM EST I corrected the strength of the atorvastatin and sent in a new prescription * Telephone Encounter - Cecy Cornelius MA - 07/29/2022 12:42 PM EST Patient notified and understands. documented in this encounter Plan of Treatment Upcoming Encounters Date Type Department Care Team (Late st Contact Info) Description 04/12/2025 10:20 AM EDT Office Visit [facility] - Family Medicine [address] [place] [address] documented as of this encounter Visit Diagnoses Not on filedocumented in this encounter Additional Health Concerns Infection Onset Date Last Indicated Resolved Time COVID-19 Rule-Out 09/28/2022 09/28/2022 09/28/2022 12:38 PM EST documented as of this encounter Care Teams Bookkeeping Machine Mechanic Relationship Specialty Start Date End Date Errol Mejia DO [address] [place] [address] PCP - General Internal Medicine 07/23/17 documented as of this encounter
--- OUTSIDE RECORDS SUMMARY | 2025-01-21 13:47 | XMS_ITS | Encounter Summary ---
Author Organization [facility] Address [id number] [address] [place] [address] Care Team Providers Care Payroll Supervisor Name Role Phone Errol Mejia DO Primary Care Provider [phone] Reason for Visit * Reason Comments Med Refill Encounter Details Date Type Department Care Team (Late st Contact Info) Description 07/19/2022 Refill [facility] Internal Medicine - Family Medicine [address] [place] [address] Errol Mejia DO [address] [place] [address] Essential hypertension (Primary Dx) Social History Tobacco Use Types [...] Internal Medicine - Family Medicine [address] [place] [address] documented as of this encounter Visit Diagnoses Diagnosis Essential hypertension- Primary Unspecified essential hypertension documented in this encounter Additional Health Concerns Infection Onset Date Last Indicated Resolved Time COVID-19 Rule-Out 09/28/2022 09/28/2022 09/28/2022 12:38 PM EST documented as of this encounter Care Teams Payroll Supervisor Relationship Specialty Start Date End Date Errol Mejia DO [address] [place] [address] PCP - General Internal Medicine 07/23/17 documented as of this encounter
--- OUTSIDE RECORDS SUMMARY | 2025-01-21 13:47 | XMS_ITS | Encounter Summary ---
Author Organization [facility] Address [id number] [address] [place] [address] Care Team Providers Care Design Engineer Marine Equipment Name Role Phone Errol Mejia DO Primary Care Provider [phone] Reason for Visit * Reason Comments Med Refill Encounter Details Date Type Department Care Team (Late st Contact Info) Description 07/20/2022 Refill [facility] Internal Medicine - Family Medicine [address] [place] [address] Errol Mejia DO [address] [place] [address] Essential hypertension (Primary Dx) Social History Tobacco [...] Internal Medicine - Family Medicine [address] [place] [address] documented as of this encounter Visit Diagnoses Diagnosis Essential hypertension- Primary Unspecified essential hypertension documented in this encounter Additional Health Concerns Infection Onset Date Last Indicated Resolved Time COVID-19 Rule-Out 09/28/2022 09/28/2022 09/28/2022 12:38 PM EST documented as of this encounter Care Teams Design Engineer Marine Equipment Relationship Specialty Start Date End Date Errol Mejia DO [address] [place] [address] PCP - General Internal Medicine 07/23/17 documented as of this encounter
--- OUTSIDE RECORDS SUMMARY | 2025-01-21 13:47 | XMS_ITS | Encounter Summary ---
Author Organization [employer] tem Address [facility]-[id number] [address] [place] [address] Care Team Providers Care Triple Drum Operator Name Role Phone Errol Mejia DO Primary Care Provider [phone] Reason for Visit * Reason Comments Med Refill Encounter Details Date Type Department Care Team (Late Contact Info) Description 09/01/2022 Refill [facility] Internal Medicine - Family Medicine [address] [place] [address] Errol Mejia DO [address] [place] [address] Essential hypertension (Primary Dx) Social History Tobacco [...] Encounters Date Type Department Care Team (Late Contact Info) Description 04/12/2025 10:20 AM EDT Office Visit [facility] - Family Medicine [address] [place] [address] documented as of this encounter Visit Diagnoses Diagnosis Essential hypertension- Primary Unspecified essential hypertension documented in this encounter Additional Health Concerns Infection Onset Date Last Indicated Resolved Time COVID-19 Rule-Out 09/28/2022 09/28/2022 09/28/2022 12:38 PM EST documented as of this encounter Care Teams Triple Drum Operator Relationship Specialty Start Date End Date Errol Mejia DO [address] [place] [address] PCP - General Internal Medicine 07/23/17 documented as of this encounter
--- OUTSIDE RECORDS SUMMARY | 2025-01-21 13:47 | XMS_ITS | Encounter Summary ---
[id number] [address] [place] [address] Care Team Providers Care Behavioral Science Chair Name Role Phone Errol Mejia DO Primary Care Provider [phone] Reason for Visit * Reason Comments Med Refill Encounter Details Date Type Department Care Team (Late st Contact Info) Description 06/17/2022 Refill [facility] Internal Medicine - Family Medicine [address] [place] [address] Errol Mejia DO [address] [place] [address] Heartburn (Primary Dx) Social History Tobacco Use Types [...] have Coronavirus / COVID-19? Unable to assess 06/20/2022 1:17 PM EDT documented as of this encounter Plan of Treatment Upcoming Encounters Date Type Department Care Team (Late st Contact Info) Description 04/12/2025 10:20 AM EDT Office Visit [facility] Internal Medicine - Family Medicine [address] [place] [address] documented as of this encounter Visit Diagnoses Diagnosis Heartburn- Primary documented in this encounter Additional Health Concerns Infection Onset Date Last Indicated Resolved Time COVID-19 Rule-Out 09/28/2022 09/28/2022 09/28/2022 12:38 PM EST documented as of this encounter Care Teams Behavioral Science Chair Relationship Specialty Start Date End Date Errol Mejia DO [address] [place] [address] PCP - General Internal Medicine 07/23/17 documented as of this encounter
--- OUTSIDE RECORDS SUMMARY | 2025-01-21 13:48 | XMS_ITS | Encounter Summary ---
Author Organization [facility] [employer] Sys tem Address [id number] [address] [place] [address] Care Team Providers Care Bender Helper Name Role Phone Errol Mejia DO Primary Care Provider [phone] Encounter Details Date Type Department Care Team (Late st Contact Info) Description 08/29/2023 Orders Only [facility] Internal Medicine - Family Medicine [address] [place] [address] Errol Mejia DO [address] [place] [address] Dyspnea on exertion (Primary Dx) Social History Tobacco Use Types Packs/Day Years Used Date Smoking Tobacco: Never Smokeless Tobacco: Never Alcohol Use Standard Drinks/Week Comments Yes 0 (1 standard drink = 0.6 oz pur e alcohol) occasionally once a year Social Connection and Isolat ion Panel [NHANES] Answer Date Recorded In a typical week, how many times do you talk on the phone with family, friends, or neighbors? More than three times a week 04/03/2023 How often do you get togethe r with friends or relatives? More than three times a week 04/03/2023 How often do you attend chur ch or jehovah's witness services? More than 4 times per year 04/03/2023 Do you belong to any clubs o r organizations such as buddhist groups, unions, fraternal or athletic groups, or [...] 04/03/2023 PHQ-2 Answer Date Recorded Total Score 15 08/26/2023 [facility] of Occupat ional Health - Occupational Stress Questionnaire Answer Date Recorded Do you feel stress - tense, restless, nervous, or anxious, or unable to sleep at night because your mind is troubled all the time - these days? Very much 04/03/2023 Exercise Vital Sign Answer Date Recorde d [...] Recorded Do you need help finding a [facility] career center and/or a training program? No 04/03/2023 Hunger Screening Answer Date Recorded Within the past 12 months we worried whether our food would run out before we got money to buy more. Never True 08/26/2023 Within the past 12 months th e food we bought just didn't last and we didn't have money to get more. Never True 08/26/2023 Purpose - Life Answer Date Recorded I [...] Internal Medicine - Family Medicine [address] [place] [address] documented as of this encounter Visit Diagnoses Diagnosis Dyspnea on exertion- Primary Other dyspnea and respiratory abnormality documented in this encounter Additional Health Concerns Assessment Noted Time PHQ-9 Depression Total Score: 15 024 9:16 AM EST documented as of this encounter Care Teams Bender Helper Relationship Specialty Start Date End Date Errol Mejia DO [address] [place] [address] PCP - General Internal Medicine 07/23/17 documented as of this encounter
--- OUTSIDE RECORDS SUMMARY | 2025-01-21 13:48 | XMS_ITS | Encounter Summary ---
Author Organization [facility] tem Address [id number] [address] [place] [address] Care Team Providers Care Lamps Tester And Inspector Name Role Phone Errol Mejia DO Primary Care Provider [phone] Encounter Details Date Type Department Care Team (Late st Contact Info) Description 02/04/2024 Orders Only [facility] Internal Medicine - Family Medicine [address] [place] [address] Errol Mejia DO [address] [place] [address] Hyperlipidemia, unspecified hyperlipidemia type (Primary Dx) Social [...] often do you attend chur ch or samaritan services? More than 4 times per year 04/03/2023 Do you belong to any clubs o r organizations such as mandaeism groups, unions, fraternal or athletic groups, or [...] PHQ-2 Answer Date Recorded Total Score 0 02/03/2024 [facility] of Occupat ional Health - Occupational [...] Recorded Do you need help finding a [facility] career center and/or a training program? No 04/03/2023 Hunger Screening Answer Date Recorded Within the past 12 months we worried whether our food would run out before we got money to buy more. Never True 02/03/2024 Within the past 12 months th e food we bought just didn't last and we didn't have money to get more. Never True 02/03/2024 Purpose - Life Answer Date Recorded I [...] Internal Medicine - Family Medicine [address] [place] [address] documented as of this encounter Visit Diagnoses Diagnosis Hyperlipidemia, unspecified hyperlipidemia type- Primary documented in this encounter Additional Health Concerns Assessment Noted Time PHQ-9 Depression Total Score: 0 02/03/20 24 9:54 AM EDT documented as of this encounter Care Teams Lamps Tester And Inspector Relationship Specialty Start Date End Date Errol Mejia DO [address] [place] [address] PCP - General Internal Medicine 07/23/17 documented as of this encounter
--- OUTSIDE RECORDS SUMMARY | 2025-01-21 13:48 | XMS_ITS | Encounter Summary ---
Author Organization [employer] [facility] tem Address [id number] [address] [place] [address] Care Team Providers Care Licensing Worker Name Role Phone Errol Mejia DO Primary Care Provider Encounter Details Date Type Department Care Team (Late st Contact Info) Description 10/01/2023 [facility] [address] [place] [address] Errol Mejia DO [address] [place] [address] Social History Tobacco Use Types Packs/Day Years [...] often do you attend chur ch or adventism services? More than 4 times per year 04/03/2023 Do you belong to any clubs o r organizations such as jewish groups, unions, fraternal or athletic groups, or [...] Answer Date Recorded Total Score 15 08/26/2023 [facility] of Occupat ional Health - [...] Recorded Do you need help finding a [facility] and/or a training program? No [...] Internal Medicine - Family Medicine [address] [facility] [facility] [place] [address] documented as of this encounter Visit Diagnoses Not on filedocumented in this encounter Additional Health Concerns Assessment Noted Time PHQ-9 Depression Total Score: 15 024 9:16 AM EST documented as of this encounter Care Teams Licensing Worker Relationship Specialty Start Date End Date Errol Mejia DO [address] [facility] [address] PCP - General Internal Medicine 07/23/17 documented as of this encounter
--- OUTSIDE RECORDS SUMMARY | 2025-01-21 13:48 | XMS_ITS | Encounter Summary ---
Author Organization [employer] [facility] Address [id number] [address] [place] [address] Care Team Providers Care School Guidance Counselor Name Role Phone Errol Mejia DO Primary Care Provider [phone] Reason for Referral * Consultation (Routine) - Authorized Specialty Diagnoses / Procedures Referred By Contac t Referred To Contact Pain Medicine Diagnoses Cervical radiculopathy Spinal stenosis of lumbar region without neurogenic claudication Errol Mejia DO [address] [place] [address] Phone: tel: fax: Stephon Contreras MD [address] [place] [address] Phone: tel: fax: Referral ID Status Reason Start Date Expiration Date Visits Requested Visits Authorized [id number] Authorized Patient Preference 04/09/2024 04/09/2025 4 4 Encounter Details Date Type Department Care Team (Late st Contact Info) Description 04/09/2024 Orders Only [facility] Internal Medicine - Family Medicine [address] [place] [address] Errol Mejia DO [address] [place] [address] Thyroid nodule (Primary Dx); Bilateral renal cysts; Cervical radiculopathy; Spinal stenosis of lumbar region without neurogenic claudication Social History Tobacco Use Types Packs/Day Years Used Date Smoking Tobacco: Never Smokeless Tobacco: Never Alcohol Use Standard Drinks/Week Comments Yes 0 (1 standard drink = 0.6 oz pur e alcohol) occasionally once a year [facility] Utilities Answer Date Recorded In the past 12 months has th e electric, gas, oil, or water company [...] often do you attend chur ch or zoroastrian services? More than 4 times per year 04/03/2023 Do you belong to any clubs o r organizations such as oriental orthodox groups, unions, fraternal or athletic groups, or [...] 04/03/2023 PHQ-2 Answer Date Recorded Total Score 6 04/08/2024 [facility] of Occupat ional Health - Occupational Stress [...] Recorded Do you need help finding a [facility] Connectipity center and/or a training program? No 04/03/2023 Hunger Screening Answer Date Recorded Within the past 12 months we worried whether our food would run out before we got money to buy more. Never True 04/08/2024 Within the past 12 months th e food we bought just didn't last and we didn't have money to get more. Never True 04/08/2024 Purpose - Life Answer Date Recorded I [...] Medicine - Family Medicine [address] [place] [address] Scheduled Referrals Name Type Priority Associated Diagnoses Orde r Schedule Ambulatory referral to Pain Management ([facility]) Outpatient Referral Routine Cervical radiculopathy Spinal stenosis of lumbar region without neurogenic claudication 1 Occurrences starting 04/09/2024 until 04/09/2025 documented as of this encounter Results * Ultrasound thyroid (04/12/2024 9:24 AM EDT) Anatomical Region Laterality Modality Neck Ultrasound 04/14/2024 7:2 5 AM EDT Narrative 04/14/2024 7:41 AM EDT CLINICAL INFORMATION: Thyroid nodule. Thyroid nodules incidentally discovered on MRI TECHNIQUE: Real time sonography of the thyroid gland performed. COMPARISON: No relevant prior studies available. FINDINGS: Thyroid size: Normal Right thyroid lobe measures: 5.1 x 1.6 x 2.0 centimeters Left thyroid lobe measures: 4.0 x 1.6 x 1.5 centimeters The isthmus measures only between 1 and 2 mm. Overall thyroid texture: Homogeneous Numerous bilateral thyroid nodules with the more prominent displaying features as follows Nodule # 1 Maximum size/location: Midportion of right lobe measuring 1.3 x 1.1 x 1.2 cm Composition: Mixed cystic/solid -1 Echogenicity: Hypoechoic - 2 Shape: Not taller than wide -0 Margins: Smooth - 0 Echogenic foci: None -0 ACR TI-RADS total points: 3 ACR TI RADS risk category: TR3 (3) ACR TI RADS Recommendation: no further follow-up Nodule # 2 Maximum size/location: Lower right lobe measuring 1.1 x 1.1 x 1.2 cm Composition: Solid -2 Echogenicity: Hypoechoic - 2 Shape: Not taller than wide -0 Margins: ill defined -0 Echogenic foci: None -0 ACR TI-RADS total points: 4 ACR TI RADS risk category: TR4 (4-6) ACR TI RADS Recommendation: Ultrasound follow-up 1 year Nodule # 3 Maximum size/location: Midportion of the left lobe measuring 1.2 x 0.7 x 0.8 cm Composition: Mixed cystic/solid -1 Echogenicity: Hypoechoic - 2 Shape: Not taller than wide -0 Margins: ill defined -0 Echogenic foci: Macrocalcifications - 1 Additional echogenic foci: None -0 ACR TI-RADS total points: 4 ACR TI RADS risk category: TR4 (4-6) ACR TI RADS Recommendation: Ultrasound follow-up 1 year Nodule # 4 Maximum size/location: Left lower colon measuring 1.1 x 0.9 x 1.1 cm Composition: Solid -2 Echogenicity: Hypoechoic - 2 Shape: Not taller than wide -0 Margins: Smooth - 0 Echogenic foci: None -0 ACR TI-RADS total points: 4 ACR TI RADS risk category: TR4 (4-6) ACR TI RADS Recommendation: Ultrasound follow-up 1 year IMPRESSION: Multiple thyroid nodules with none displaying highly suspicious features. There is 1 TR 4 nodule in the right lobe and 2 in the left lobe that measure just over 1 cm, and for which one-year follow-up is recommended by TI-RADS criteria. ACR TI-RADS recommendations: TR5 (greater than or equal to 7 points) - FNA if greater than or equal to 1cm, follow-up ultrasound if nodule is 0.5 - 0.9 cm every year for 5 years. TR4 (4 - 6 points) - FNA if greater than or equal to 1.5 cm, follow-up ultrasound if nodule is 1 -1.4 cm at 1, 2, 3 and 5 years. TR3 (3 points) - FNA if greater than or equal to 2.5 cm, follow-up ultrasound if nodule is 1.5 -2.4 cm at 1, 3 and 5 years. TR2 (2 points) & TR1 (0 points) - No FNA or follow-up. Finalized by Alex Botello MD on 04/14/2024 7:41 AM Procedure Note Alex Botello MD - 04/14/2024 CLINICAL INFORMATION: Thyroid nodule. Thyroid nodules incidentally discovered on MRI TECHNIQUE: Real time sonography of the thyroid gland performed. COMPARISON: No relevant prior studies available. FINDINGS: Thyroid size: Normal Right thyroid lobe measures: 5.1 x 1.6 x 2.0 centimeters Left thyroid lobe measures: 4.0 x 1.6 x 1.5 centimeters The isthmus measures only between 1 and 2 mm. Overall thyroid texture: Homogeneous Numerous bilateral thyroid nodules with the more prominent displayingfeatures as follows Nodule # 1 Maximum size/location: Midportion of right lobe measuring 1.3 x 1.1 x 1.2cm Composition: Mixed cystic/solid -1 Echogenicity: Hypoechoic - 2 Shape: Not taller than wide -0 Margins: Smooth - 0 Echogenic foci: None -0 ACR TI-RADS total points: 3 ACR TI RADS risk category: TR3 (3) ACR TI RADS Recommendation: no further follow-up Nodule # 2 Maximum size/location: Lower right lobe measuring 1.1 x 1.1 x 1.2 cm Composition: Solid -2 Echogenicity: Hypoechoic - 2 Shape: Not taller than wide -0 Margins: ill defined -0 Echogenic foci: None -0 ACR TI-RADS total points: 4 ACR TI RADS risk category: TR4 (4-6) ACR TI RADS Recommendation: Ultrasound follow-up 1 year Nodule # 3 Maximum size/location: Midportion of the left lobe measuring 1.2 x 0.7 x0.8 cm Composition: Mixed cystic/solid -1 Echogenicity: Hypoechoic - 2 Shape: Not taller than wide -0 Margins: ill defined -0 Echogenic foci: Macrocalcifications - 1 Additional echogenic foci: None -0 ACR TI-RADS total points: 4 ACR TI RADS risk category: TR4 (4-6) ACR TI RADS Recommendation: Ultrasound follow-up 1 year Nodule # 4 Maximum size/location: Left lower colon measuring 1.1 x 0.9 x 1.1 cm Composition: Solid -2 Echogenicity: Hypoechoic - 2 Shape: Not taller than wide -0 Margins: Smooth - 0 Echogenic foci: None -0 ACR TI-RADS total points: 4 ACR TI RADS risk category: TR4 (4-6) ACR TI RADS Recommendation: Ultrasound follow-up 1 year IMPRESSION: Multiple thyroid nodules with none displaying highly suspiciousfeatures. There is 1 TR 4 nodule in the right lobe and 2 in the left lobe thatmeasure just over 1 cm, and for which one-year follow-up is recommended byTI-RADS criteria. ACR TI-RADS recommendations: TR5 (greater than or equal to 7 points) - FNA if greater than or equal to1cm, follow-up ultrasound if nodule is 0.5 - 0.9 cm every year for 5years. TR4 (4 - 6 points) - FNA if greater than or equal to 1.5 cm, follow-upultrasound if nodule is 1 -1.4 cm at 1, 2, 3 and 5 years. TR3 (3 points) - FNA if greater than or equal to 2.5 cm, follow-upultrasound if nodule is 1.5 -2.4 cm at 1, 3 and 5 years. TR2 (2 points) & TR1 (0 points) - No FNA or follow-up. Finalized by Alex Botello MD on 04/14/2024 7:41 AM us Errol Mejia DO IMG US ORDERABLES Final Result * Ultrasound retroperitoneal limited (04/12/2024 9:19 AM EDT) Anatomical Region Laterality Modality Body Ultrasound 04/13/2024 4:35 PM EDT Addenda Addendum by Irvin Garcia MD on 04/14/2024 8:04 AM EDT *ADDENDUM*The first paragraph second sentence should read at the inferior pole there is a 1.5 cm renal cyst with adjacent subcentimeter echogenic focus which may relate to a nonobstructing calculus Finalized by Irvin Garcia MD on 04/14/2024 8:04 AM Narrative 04/13/2024 4:42 PM EDT US RETROPERITONEAL LIMITED: 04/12/2024 7:16 AM Indication: 68 years old Female. Bilateral renal cysts. Comparison: MRI lumbar spine from 04/06/2024. CT abdomen pelvis from 10/11/2022. FINDINGS: The right kidney measures 10.7 x 4.5 x 4.6 cm with a 5 mm cortex. At the inferior pole there is a 1.5 cm renal cyst with adjacent subcentimeter echogenic focus which may relate to a nonobstructive appearing jugular. Superior pole there is a 1 cm renal cyst. No hydronephrosis. No shadowing stones. No contour deforming lesion. The left kidney measures 9.8 x 5.3 x 5.2 cm with a 6 mm cortex. At the mid to inferior pole there is a 1.7 cm renal cyst with thin septations. No hydronephrosis. No contour or lesion. No shadowing stones. IMPRESSION: Cortical thinning and renal cysts as above. Finalized by Irvin Garcia MD on 04/13/2024 4:42 PM Procedure Note Irvin Garcia MD - 04/13/2024 US RETROPERITONEAL LIMITED: 04/12/2024 7:16 AM Indication: 68 years old Female. Bilateral renal cysts. Comparison: MRI lumbar spine from 04/06/2024. CT abdomen pelvis from10/11/2022. FINDINGS: The right kidney measures 10.7 x 4.5 x 4.6 cm with a 5 mm cortex. At theinferior pole there is a 1.5 cm renal cyst with adjacent subcentimeterechogenic focus which may relate to a nonobstructive appearing jugular.Superior pole there is a 1 cm renal cyst. No hydronephrosis. Noshadowing stones. No contour deforming lesion. The left kidney measures 9.8 x 5.3 x 5.2 cm with a 6 mm cortex. At themid to inferior pole there is a 1.7 cm renal cyst with thin septations.No hydronephrosis. No contour or lesion. No shadowing stones. IMPRESSION: Cortical thinning and renal cysts as above. Finalized by Irvin Garcia MD on 04/13/2024 4:42 PM Errol Mejia DO [facility] [place] Edited Result - Final documented in this encounter Visit Diagnoses Diagnosis Thyroid nodule- Primary Nontoxic uninodular goiter Bilateral renal cysts Unspecified congenital cystic kidney disease Cervical radiculopathy Brachial neuritis or radiculitis nos Spinal stenosis of lumbar region without neurogenic claudication Bilateral renal cysts Unspecified congenital cystic kidney disease Thyroid nodule Nontoxic uninodular goiter documented in this encounter Additional Health Concerns Assessment Noted Time PHQ-9 Depression Total Score: 6 04/08/20 24 10:41 AM EDT documented as of this encounter Care Teams School Guidance Counselor Relationship Specialty Start Date End Date Errol Mejia DO [address] [place] [address] PCP - General Internal Medicine 07/23/17 documented as of this encounter
--- OUTSIDE RECORDS SUMMARY | 2025-01-21 13:48 | XMS_ITS | Encounter Summary ---
Author Organization [facility] Address [address] [place] [address] Care Team Providers Care Investment Accounting Clerk Name Role Phone Eleni Hanson JAVA WEB DEVELOPER Unavailable [phone] Source Comments In the event this information is protected by the Federal Confidentiality of Alcohol and Drug AbusePatient Records regulations: The Federal rules restrict any use of the information to criminally investigate or prosecute any alcohol or drug abuse patient.[facility] Encounter Details Date Type Department Care Team (Late st Contact Info) Description 06/27/2023 Patient Msg Dentistry [address] [place] [address] Provider, [facility] Please Call To Reschedule Appointment Social History Tobacco Use Types Packs/Day Years Used Date Smoking Tobacco: Never Assessed PHQ-2 Answer Date Recorded PHQ-2 score 4 05/13/2023 Area Deprivation Index Answer Date Shantanu rded National Score (1-100), lower number is lower ri sk 53 03/21/2023 State Score (1-10), lower number is lower risk 3 03/21/2023 Data from: https://www.neighborhoodatlas.medicine.[facility].edu/. Last address used for calculation [address] [place] [address] 03/21/2023 Comments Unknown Sex and Gender Information Value Date Recorded Sex Assigned at Not on file Legal Sex Female 6:32 PM EDT Gender Identity Not on file Sexual Orientation Not on file documented as of this encounter Plan of Treatment Upcoming Encounters Date Type Department Care Team (Latest Contact Info) Description 03/29/2025 9:40 AM EDT PAT Pre Anesthesia [address] [place] [address] 2, Pacc [place] [address] [place] [address] pacc 04/12/2025 8:30 AM EDT Hospital Encounter [facility] Surgery [address] [place] [address] Jadiel Zelaya MD [address] [place], [place] [id number] Closed displaced fracture of nasal bone, sequela [S02.2XXS], 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], 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], Deviated nasal septum [J34.2], Sialolith [K11.5] 04/12/2025 8:30 AM EDT - 04/12/2025 12:30 PM EDT Surgery [facility] Surgery [address] [place] [address] Jadiel Zelaya MD [address] [place] [address] REPAIR NASAL VESTIBULAR STENOSIS 04/18/2025 11:45 AM EDT Office Visit Facial Plastics/Reconstruc tion [address] [place] [address] Jadiel Zelaya MD [address] [place] [address] post op Scheduled Procedures Name [...] on filedocumented in this encounter Care Teams Investment Accounting Clerk Relationship Specialty Start Date End Date Eleni Hanson, JAVA WEB DEVELOPER [address] [facility] [address] [place] [address] 12/05/22 documented as of this encounter
--- OUTSIDE RECORDS SUMMARY | 2025-01-21 13:48 | XMS_ITS | Encounter Summary ---
Author Organization [facility] tem Address [id number] [address] [place] [address] Care Team Providers Care Sound Effects Person Name Role Phone Errol Mejia DO Primary Care Provider [phone] Encounter Details Date Type Department Care Team (Late st Contact Info) Description 03/31/2024 Orders Only [facility] Internal Medicine - Family Medicine [address] [place] [address] Errol Mejia DO [address] [place] [address] Social History Tobacco Use Types Packs/Day Years [...] often do you attend chur ch or yazdanism services? More than 4 times per year 04/03/2023 Do you belong to any clubs o r organizations such as alevism groups, unions, fraternal or athletic groups, or [...] PHQ-2 Answer Date Recorded Total Score 0 03/24/2024 [facility] of Occupat ional Health - Occupational [...] Recorded Do you need help finding a [facility] career center and/or a training program? No 04/03/2023 Hunger Screening Answer Date Recorded Within the past 12 months we worried whether our food would run out before we got money to buy more. Never True 03/24/2024 Within the past 12 months th e food we bought just didn't last and we didn't have money to get more. Never True 03/24/2024 Purpose - Life Answer Date Recorded I [...] Internal Medicine - Family Medicine [address] [facility] [place] [address] documented as of this encounter Visit Diagnoses Not on filedocumented in this encounter Additional Health Concerns Assessment Noted Time PHQ-9 Depression Total Score: 0 03/24/20 24 3:52 PM EDT documented as of this encounter Care Teams Sound Effects Person Relationship Specialty Start Date End Date Errol Mejia DO [address] [facility] [place] [address] PCP - General Internal Medicine 07/23/17 documented as of this encounter
--- OUTSIDE RECORDS SUMMARY | 2025-01-21 13:48 | XMS_ITS | Encounter Summary ---
Author Organization [employer] [facility] [employer] Address [id number] [place] [address] Care Team Providers Care Produce Associate Name Role Phone Susanjarett Errol Myers DO Primary Care Provider [phone] Encounter Details Date Type Department Care Team (Late st Contact Info) Description 03/30/2024 Orders Only [facility] Internal Medicine - Family Medicine [address] [place] [address] Nicole Gomez CMA Screening for osteoporosis; Asymptomatic menopause Social History Tobacco Use Types Packs/Day Years [...] often do you attend chur ch or mosque services? More than 4 times per year 04/03/2023 Do you belong to any clubs o r organizations such as confucianism groups, unions, fraternal or athletic groups, or [...] Answer Date Recorded Total Score 0 03/24/2024 [facility] Health - Occupational Stress Questionnaire Answer Date [...] Recorded Do you need help finding a [facility] uclaal career center and/or a training program? No [...] Internal Medicine - Family Medicine [address] [place] [address] documented as of this encounter Procedures Procedure Name Priority Date/Time Associated Diagnosis Comments DEXA SCAN CENTRAL SKELETAL Routine 03/30/2024 9:37 AM EDT Screening for osteoporosis Asymptomatic menopause documented in this encounter Results * Dexa scan central skeletal (03/30/2024 9:37 AM EDT) Anatomical Region Laterality Modality N/A Radiographic Kellie ging us Pierce Bradley DO IMG DXA ORDERABLES Final Res ult documented in this encounter Visit Diagnoses Diagnosis Screening for osteoporosis Special screening for osteoporosis Asymptomatic menopause documented in this encounter Additional Health Concerns Assessment Noted Time PHQ-9 Depression Total Score: 0 03/24/20 24 3:52 PM EDT documented as of this encounter Care Teams Produce Associate Relationship Specialty Start Date End Date Errol Mejia DO [address] [place] [address] PCP - General Internal Medicine 07/23/17 documented as of this encounter
--- OUTSIDE RECORDS SUMMARY | 2025-01-21 13:48 | XMS_ITS | Clinical Summary ---
Author Organization [facility] Address [address] [place] [address] Care Team Providers Care Ruling Machine Set Up Operator Name Role Phone Eleni Hanson COATING MIXER SUPERVISOR Unavailable [phone] Medications losartan potassium (LOSARTAN ORAL) Take by mouth. Active INDAPAMIDE ORAL Take by mouth. Active atorvastatin (LIPITOR) 40 mg tablet Take 40 mg by mouth once daily. 3 Active clonazePAM (KLONOPIN) 0.5 mg tablet Take 0.5 mg by mouth daily at bedtime. 1.5 tablets at night 3 Active escitalopram oxalate (LEXAPRO) 20 mg tablet Take 20 mg by mouth daily at bedtime. 3 Active tiZANidine (ZANAFLEX) 4 mg tablet Take 4 mg by mouth daily at bedtime. 1.5 tablets at bedtime 3 Active rizatriptan (MAXALT WOOD TILE INSTALLER) 10 mg disintegrating tablet Take 10 mg by mouth as needed. As needed for migraine 3 Active fluticasone (FLONASE ALLERGY RELIEF) 50 mcg/actuation nasal spray Use 2 Sprays in each nostril once daily. 1 Each 5 5 05/14/20 Active Encounters Date Type Department Care Team Description 01/18/2025 Patient Msg Facial Plastics/Reconstruct ion [address] [place] [address] Jadiel Zelaya MD Appointment Request 01/10/2025 3:15 PM EDT [facility] Facial Plastics [address] [place] [address] Jadiel Zelaya MD Closed displaced fracture of nasal bone, sequela (Primary Dx); Refractory obstruction of nasal airway; Incompetent nasal valve; Deviated nasal septum; Sialolith 01/03/2025 Travel 12/06/2024 Patient Msg Head and Neck [place] [address] [place] [address] Provider, Ccf Appointment Information 12/03/2024 Get Medical Advice Facial Plastics[place] [address] [place] [address] Jadiel Zelaya MD Test results 11/25/2024 6:09 PM EDT - 11/25/2024 11:59 PM EDT Hospital Encounter [facility] [place] Scan [address] [place] [address] 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, subsequent encounter [S02.2XXK] Discharge Disposition: Home 11/15/2024 9:00 AM EDT Office Visit Facial Plastics/Reconstruct ion [address] [place] [address] Jadiel Zelaya MD Closed displaced fracture of nasal bone, sequela (Primary Dx); Facial pain; Hypertrophy of inferior nasal turbinate; 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, subsequent encounter 11/09/2024 Travel from Last 3 Months Social History Tobacco Use Types Packs/Day Years Used Date Smoking Tobacco: Never Smokeless Tobacco: Never Tobacco Cessation:Counseling Given: Not Answered Alcohol Use Standard Drinks/Week Comments Not Currently 0 (1 standard drink = 0.6 oz pur e alcohol) PHQ-2 Answer Date Recorded PHQ-2 score 4 05/13/2023 Area Deprivation Index Answer Date Shantanu rded National Score (1-100), lower number is lower ri sk 53 03/21/2023 State Score (1-10), lower number is lower risk 3 03/21/2023 Data from: https://www.neighborhoodatlas.medicine.[facility].edu/. Last address used for calculation [address] 03/21/2023 Comments Unknown Sex and Gender Information Value Date Recorded Sex Assigned at Not on file Legal Sex Female 6:32 PM EDT Gender Identity Not on file Sexual Orientation Not on file Last Filed Vital Signs Vital Sign Reading Time Taken Comments Blood Pressure 117/80 03/21/2023 8:47 AM EDT Pulse 64 03/21/2023 8:47 AM EDT Temperature - - Respiratory Rate - - Oxygen Saturation 97% 03/21/2023 8:47 AM EDT Inhaled Oxygen Concentration - - Weight 64.9 kg (143 lb) 03/21/2023 8:47 AM EDT Height 164 cm (5' 4.57 ) 03/21/2023 8:47 AM EDT Body Mass Index 24.12 03/21/2023 8:47 AM EDT Plan of Treatment Upcoming Encounters Date Type Department Care Team (Latest Contact Info) Description 03/29/2025 9:40 AM EDT PAT Pre Anesthesia [address] [place] [address] 2, [place]acc [place] [address] [place] [address] pacc 04/12/2025 8:30 AM EDT Hospital Encounter [facility] Surgery [address] [place] [address] Jadiel Zelaya MD [address] [place] [address] Closed displaced fracture of nasal bone, sequela [S02.2XXS], 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], 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], Deviated nasal septum [J34.2], Sialolith [K11.5] 04/12/2025 8:30 AM EDT - 04/12/2025 12:30 PM EDT Surgery [facility] Surgery [address] [place] [address] Jadiel Zelaya MD [address] [place] [address] REPAIR NASAL VESTIBULAR STENOSIS 04/18/2025 11:45 AM EDT Office Visit Facial Plastics/Reconstruc tion [address] [place] [address] Jadiel Zelaya MD [address] [place] [address] post op Scheduled Procedures Name Priority Associated [...] nasal septum Sialolith 04/12/2025 8:30 AM EDT Health Maintenance Due Date Last Done Comments Anxiety Screening 11/30/1973 Depression Screening 11/30/1973 Hepatitis C Screening 11/30/1973 CT Colonography 11/30/2000 Cologuard (FIT-DNA) 11/30/2000 Colonoscopy 11/30/2000 Colorectal Cancer Screening 11/30/2000 Fecal Occult Blood 11/30/2000 Sigmoidoscopy 11/30/2000 Mammogram Screening 04/24/2024 04/24/2023, 04/24/2023, 01/01/2021, Additional history exists Advance Directive Discussion 08/25/2024 Covid-19 Vaccine (2023-2 5 season) 2024 06/03/2024, 05/29/2023, 05/27/2022, Additional history exists Diabetes Screening 08/04/2027 08/04/2024, 0 02/03/2024, 08/26/2023, Additional history exists Lipid Screening 02/02/2029 02/03/2024, 09/2023, 01/09/2023, Additional history exists DTaP,Tdap,Td Vaccine (4 - Td or Tdap) 08/26/2033 08/26/2023, 01/10/2023, 08/12/2012 Shingrix Vaccine Completed 08/08/2020, 05/31/2020 Pneumococcal Vaccine: 50+ Completed 05/29/2023 RSV Vaccine Completed 05/29/2023 Bone Density Screening Completed 03/30/2024 Influenza Vaccine Completed 06/03/2024, , 07/31/2022, Additional history exists Procedures Procedure Name Priority Date/Time Associated Diagnosis Comments CT FACIAL BONE/ATUL WO IVCON Routine 11/25/2024 6:32 PM EDT 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 Technique: Spiral high resolution axial unenhanced images were obtained through the facial bones with sagittal and coronal planar reconstructions. MQ: CTMFWO_1 CT Radiation dose: Integrated Dose-Length Product (DLP) for this visit = 198 mGy*cm. CT Dose Reduction Employed: Automated exposure control(AEC) and iterative recon COMPARISON: None. RESULT: Localizer images: Noncontributory. Soft Tissues: Multiple sialoliths along course of [...] the facial bones. Elongated styloid processes bilaterally. 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 Technique: Spiral high resolution axial unenhanced images were obtained through the facial bones with sagittal and coronal planarreconstructions. MQ: CTMFWO_1 CT Radiation dose: Integrated Dose-Length Product (DLP) for this visit = 198 mGy*cm. CT Dose Reduction Employed: Automated exposure control(AEC) and iterative recon COMPARISON: None. RESULT: Localizer images: Noncontributory. Soft Tissues: Multiple sialoliths along course of [...] the facial bones. Elongated styloid processes bilaterally. IMPRESSION IMPRESSION: Sequelae of nasal bone fracture as detailed above. Video Game Maker: PSCB Transcribe Date/Time: Nov 28 2024 11:16A Dictated by : CARLOS CHANDLER MD This examination was interpreted and the report reviewed and electronically signed by: CARLOS CHANDLER MD on Nov 28 2024 11:19AM EST Jadiel Zelaya MD CT-[facility] Final Result * PHOTO FACE FULL (11/15/2024 8:46 AM EDT) Anatomical Region Laterality Modality Other 11/15/2024 8:46 AM EDT Cc Provider IMAGES Final Result from Last 3 Months Insurance [employer] MEDICARE Care Teams Ruling Machine Set Up Operator Relationship Specialty Start Date End Date Eleni Hanson, COATING MIXER SUPERVISOR [address] [facility] [address] [place] [address] 12/05/22
--- OUTSIDE RECORDS SUMMARY | 2025-01-21 13:48 | XMS_ITS | Encounter Summary ---
Author Organization [facility] Address [id number] [place] [address] Care Team Providers Care Tester Rocket Engine Name Role Phone Errol Mejia DO Primary Care Provider [phone] Encounter Details Date Type Department Care Team (Late Contact Info) Description 01/14/2023 [facility] [address] [place] [address] Errol Mejia DO [address] [place] [address] Social History Tobacco Use Types Packs/Day Years Used Date Smoking Tobacco: Never Smokeless Tobacco: Never Alcohol Use Standard Drinks/Week Comments Yes 0 (1 standard drink = 0.6 oz pur e alcohol) occasionally once a year PHQ-2 Answer Date Recorded Total Score 0 01/09/2023 Childcare Answer Date Recorded Childcare Unknown 01/28/2019 [...] Description 04/12/2025 10:20 AM EDT [facility] [address] [place] [address] documented as of this encounter Procedures Procedure Name Priority Date/Time Associated Diagnosis Comments HEPATITIS C(HCV) ANTIBODY W/ REFLEX TO PCR Routine 11/26/2015 documented in this encounter Results * Hepatitis C(HCV) Ab w/ Reflex to PCR (11/26/2015) Errol Mejia DO LAB BLOOD ORDERABLES Final Resul t MANUALLY TRANSCRIBED LAB RESULTS documented in this encounter Visit Diagnoses Not on filedocumented in this encounter Additional Health Concerns Assessment Noted Time PHQ-9 Depression Total Score: 0 01/10/20 23 9:51 AM EDT documented as of this encounter Care Teams Tester Rocket Engine Relationship Specialty Start Date End Date Errol Mejia DO [address] [place] [address] PCP - General Internal Medicine 07/23/17 documented as of this encounter
--- OUTSIDE RECORDS SUMMARY | 2025-01-21 13:48 | XMS_ITS | Clinical Summary ---
Author Organization [facility] Address [address] [place] [address] Care Team Providers Care Physical Plant Manager Name Role Phone Unavailable Primary Care Provider Unavailabl e Social History Tobacco Use Types Packs/Day Years Used Date Smoking Tobacco: Never Assessed Comments Unknown Sex and Gender Information Value Date Recorded Sex Assigned at Not on file Legal Sex Female 7:12 PM EST Gender Identity Not on file Sexual Orientation Not on file Plan of Treatment Not on file
--- OUTSIDE RECORDS SUMMARY | 2025-01-21 13:48 | XMS_ITS | Encounter Summary ---
Author Organization [facility] Address [address] [place] [address] Care Team Providers Care Primary Montessori Teacher Name Role Phone Eleni Hanson PROFESSIONAL VOLLEYBALL PLAYER Unavailable [phone] Source Comments In the event this information is protected by the Federal Confidentiality of Alcohol and Drug AbusePatient Records regulations: The Federal rules restrict any use of the information to criminally investigate or prosecute any alcohol or drug abuse patient.[facility] Encounter Details Date Type Department Care Team (Late st Contact Info) Description 05/08/2023 Patient Msg Medical Records [address] [place] [address] Provider, [facility] Questionnaire Submission Social History Tobacco Use Types Packs/Day Years Used Date Smoking Tobacco: Never Assessed Area Deprivation Index Answer Date Shantanu rded National Score (1-100), lower number is lower ri sk 53 03/21/2023 State Score (1-10), lower number is lower risk 3 03/21/2023 Data from: https://www.neighborhoodatlas.medicine.[facility].edu/. Last address used for calculation [address] [facility] 03/21/2023 Comments Unknown Sex and Gender Information Value Date Recorded Sex Assigned at Not on file Legal Sex Female 6:32 PM EDT Gender Identity Not on file Sexual Orientation Not on file documented as of this encounter Plan of Treatment Upcoming Encounters Date Type Department Care Team (Latest Contact Info) Description 03/29/2025 9:40 AM EDT PAT Pre Anesthesia [address] [place] [address] 2, Pacc [place] [address] [place] [address] pacc 04/12/2025 8:30 AM EDT Hospital Encounter [facility] Surgery [address] [place] [address] Jadiel Zelaya MD [address] [place] [address] Closed displaced fracture of nasal bone, sequela [S02.2XXS], 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], 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], Deviated nasal septum [J34.2], Sialolith [K11.5] 04/12/2025 8:30 AM EDT - 04/12/2025 12:30 PM EDT Surgery [facility] Surgery [address] [place] [address] Jadiel Zelaya MD [address] [place] [address] REPAIR NASAL VESTIBULAR STENOSIS 04/18/2025 11:45 AM EDT Office Visit Facial Plastics/Reconstruc tion [address] [place] [address] Jadiel Zelaya MD [address] [place] [address] post op Scheduled Procedures Name Priority Associated [...] on filedocumented in this encounter Care Teams Primary Montessori Teacher Relationship Specialty Start Date End Date Eleni Hanson, PROFESSIONAL VOLLEYBALL PLAYER [address] [place] [address] 12/05/22 documented as of this encounter
--- OUTSIDE RECORDS SUMMARY | 2025-01-21 13:51 | XMS_ITS | CCD ---
Author Organization [facility] Care Team Providers Care Special Events Coordinator Name Role Phone Cory Roy II Unavailable [phone] DO Dewey Wolfe Primary Care Provider MD Nino Carmona Attending Provider Cory Roy II Admitting UnavailCory Roy II Attending UnavailDewey Burnette Primary Care Unavailable Jackie, Dewey Primary Care Unavailable Nino Carmona Admitting Unavailable Nino Carmona Attending Unavailable Nino Carmona Unavailable BULL SHAIKH Admitting Unavailable YUHANick, DR PALOMO Primary Care Unavailable KELVIN, DR CAMI Cabral Consulting Unavailable BULL SHAIKH Attending Unavailable BULL SHAIKH Consulting Unavailable WEST, DR NINO Liao Consulting Unavailable YUHANick, DR PALOMO Primary Care Unavailable RADHA AGOSTO Attending Unavailable RADHA AGOSTO Admitting Unavailable RADHA AGOSTO Consulting Unavailable YUHAS, DR PALOMO Primary Care Unavailable KATRINAEBMINAL, DR CAMI Cabral Consulting Unavailable BULL SHAIKH Admitting Unavailable BULL SHAIKH Attending Unavailable BULL SHAIKH Consulting Unavailable WEST, DR NINO Liao Consulting Unavailable YUHAS, DR PALOMO Primary Care Unavailable BULL SHAIKH Admitting Unavailable BULL SHAIKH Attending Unavailable BULL SHAIKH Consulting Unavailable Eleni Hanson Unavailable Eleni Hanson CNP Unavailable [phone] Dewey Wolfe MD Primary Care Provider [phone] DEWEY WOLFE Attending Unavailable DEWEY WOLFE Referring Unavailable DEWEY WOLFE Primary Care Unavailable DEWEY WOLFE Attending Unavailable DEWEY WOLFE Referring Unavailable DEWEY WOLFE Primary Care Unavailable DEWEY WOLFE Attending Unavailable YUHAS, DEWEY L Referring Unavailable YUHAS, DEWEY L Primary Care Unavailable NOEMY RICH G Attending Unavailable YUHAS, DEWEY L Referring Unavailable YUHAS, DEWEY L Primary Care Unavailable YUHAS, DEWEY L Referring Unavailable YUHAS, DEWEY L Primary Care Unavailable YUHAS, DEWEY L Attending Unavailable YUHAS, DEWEY L Referring Unavailable YUHAS, DEWEY L Primary Care Unavailable YUHAS, DEWEY L Referring Unavailable YUHAS, DEWEY L Primary Care Unavailable YUHAS, DEWEY L Referring Unavailable YUHAS, DEWEY L Primary Care Unavailable YUHAS, DEWEY L Referring Unavailable YUHAS, DEWEY L Primary Care Unavailable Yuhas DO, Dewey L Primary Care Provider [phone] YUANUELS, DEWEY L Attending Unavailable YUHAS, DEWEY L Referring Unavailable YUHAS, DEWEY L Primary Care Unavailable YUHAS, DEWEY L Referring Unavailable YUHAS, DEWEY L Primary Care Unavailable YUHAS, DEWEY L Referring Unavailable YUHAS, DEWEY L Primary Care Unavailable CARLENEENBERGGALLO Attending Unavailable YUHAS, DEWEY L Referring Unavailable YUHAS, DEWEY L Primary Care Unavailable STEPHON CONTRERAS Admitting Unavailable STEPHON CONTRERAS Attending Unavailable YUHAS, DEWEY L Referring Unavailable YUHAS, DEWEY L Primary Care Unavailable STEPHON CONTRERAS Attending Unavailable STEPHON CONTRERAS Referring Unavailable YUHAS, DEWEY L Primary Care Unavailable GALLO LUNDBERG Attending Unavailable YUHAS, DEWEY L Referring Unavailable YUHAS, DEWEY L Primary Care Unavailable CARLENEENBERGGALLO Attending Unavailable YUHAS, DEWEY L Referring Unavailable YUHAS, DEWEY L Primary Care Unavailable STEPHON CONTRERAS Attending Unavailable STEPHON CONTRERAS Referring Unavailable YUHAS, DEWEY L Primary Care Unavailable STEPHON CONTRERAS Admitting Unavailable STEPHON CONTRERAS Attending Unavailable YUHAS, DEWEY L Referring Unavailable YUHAS, DEWEY L Primary Care Unavailable GALLO LUNDBERG Attending Unavailable YUHAS, DEWEY L Referring Unavailable YUHAS, DEWEY L Primary Care Unavailable Yuhas DODewey Primary Care Provider [phone] RADHA ZELAYA Referring Unavailable ELENI HANSON Attending Unavailable ELENI HANSON Attending Unavailable ISAEL PANCHAL Attending Unavailable ELENI HANSON Attending Unavailable ELENI HANSON Attending Unavailable RADHA ZELAYA Attending Unavailable RADHA ZELAYA Referring Unavailable RADHA ZELAYA Attending Unavailable Medications Current Medications Medication Drug Class(es) Dates Sig (Normalized) Sig (Original) acetaminophen 500 mg oral tablet (7 sources) take 1 tablet by mouth every six hours as needed for pain acetaminophen (TYLENOL EXTRA STRENGTH) 500 mg tablet Take 1 tablet (500 mg total) by mouth every 6 (six) hours as needed for pain. Active amLODIPine 5 mg oral tablet (20 sources) Dihydropyridine Calcium Channel Betty Start: 01-09-2024 End: 01-01-2025 take 1 tablet by mouth once daily amLODIPine (NORVASC) 5 mg tablet Indications: Essential hypertension TAKE 1 TABLET BY MOUTH DAILY 90 tablet 1 01/01/2025 Active amoxicillin 500 mg oral capsule (8 sources) Penicillin-class Antibacterial Start: 03-03-2024 take 500 mg by mouth twice daily Amoxicillin Active 500 MG PO Twice daily 13 06March 03, 2024 12:00am take 1 capsule by [facility] three times daily amoxicillin (AMOXIL) 500 mg capsule Take 1 capsule (500 mg total) by mouth 3 (three) times a day. Active atenolol 25 mg oral tablet (7 sources) beta-Adrenergic Betty take 1 tablet by mouth in the morning atenoloL (TENORMIN) 25 mg tablet Take 1 tablet (25 mg total) by mouth in the morning. Active atorvastatin 40 mg oral tablet (20 sources) HMG-CoA Reductase Inhibitor Start: 03-01-20 take 1 tablet by mouth once daily atorvastatin (LIPITOR) 40 mg tablet Take 40 mg by mouth once daily. 03/01/2023 Active Start: 05-08-2020 take 20 mg by mouth at bedtime Atorvastatin Active 20 MG PO Bedtime May 08, 2020 12:00am Comment on above: Take 40 mg by mouth once daily. cephalexin 500 mg oral capsule (4 sources) Cephalosporin Antibacterial Start: 05-08-20 End: 05-10-20 take 500 mg by mouth four times daily Cephalexin Active 500 MG PO Four times daily 0 May 10, 2020 9:34am complete course of med previously prescribed by foot surgeon chlorhexidine gluconate 1.2 mg/ml mouthwash (7 sources) Start: 08-03-20 chlorhexidine (PERIDEX) 0.12 % solution 08/03/2024 Active clonazePAM 0.5 mg oral tablet (20 sources) Benzodiazepine Start: 12-10-19 25 clonazePAM (KlonoPIN) 0.5 MG tablet Indications: PLMD (periodic limb movement disorder) Take 1-2 at bedtime 60 tablet 2 12/09/2024 Active Start: 12-09-2024 clonazePAM (Kl onoPIN) 0.5 MG tablet Indications: PLMD (periodic limb movement disorder) Take 1-2 at bedtime 60 tablet 2 12/09/2024 Active Start: 04-27-2018 End: 12-09-2024 take 1 tablet by mouth once daily at bedtime clonazePAM (KLONOPIN) 0.5 mg tablet Take 0.5 mg by mouth daily at bedtime. 1.5 tablets at night 03/05/2023 Active Comment on above: Take 0.5 mg by mouth daily at bedtime. 1.5 tablets at night diclofenac sodium 0.01 mg/mg topical gel (4 sources) Nonsteroidal Anti-inflammatory Drug Start: Voltaren 1 % 3-4 grams to the affected area Externally 4 times a day for 30 days December, Active ergocalciferol 1.25 mg oral capsule (2 sources) Provitamin D2 Compound Start: take 1250 ug by mouth every week Ergocalciferol (Vitamin D2) Active 1250 MCG PO every week May 08, 2020 12:00am takes every Friday escitalopram 20 mg oral tablet (20 sources) Serotonin Reuptake Inhibitor Start: take 1 tablet by mouth once daily at bedtime escitalopram oxalate (LEXAPRO) 20 mg tablet Take 20 mg by mouth daily at bedtime. 02/26/2023 Active Comment on above: Take 20 mg by mouth daily at bedtime. estradiol 0.1 mg/ml vaginal cream (9 sources) Estrogen Start: End: 026 estradiol (Estrace) 0.1 MG/GM vaginal cream Indications: Postmenopausal atrophic vaginitis , Dyspareunia in female Insert 1 g into the vagina 2 (two) times a week At bedtime for 2 weeks, then at bedtime twice a week. 42 g 2 06/14/2024 08/11/2024 Discontinued (Therapy completed) ezetimibe 10 mg oral tablet (20 sources) Dietary Cholesterol Absorption Inhibitor Start: 09-26-2 024 take 1 tablet by mouth once daily in the morning ezetimibe (ZETIA) 10 mg tablet Indications: Hyperlipidemia, unspecified hyperlipidemia type take 1 tablet by mouth every morning 90 tablet 1 05/20/2024 Active ferrous sulfate 325 mg oral tablet (20 sources) take 1 tablet by mouth once daily Ferrous Sulfate (iron) 325 (65 Fe) MG tablet Take 1 tablet by mouth Daily with an OTC vitamin C Active fluticasone propionate 0.05 mg/actuat metered dose nasal spray (5 sources) Corticosteroid Start: End: take 2 spray(s) nasal route once daily fluticasone (FLONASE ALLERGY RELIEF) 50 mcg/actuation nasal spray Use 2 Sprays in each nostril once daily. 1 Each 5 11/15/2024 05/14/2025 Active Start: 11-15-2024 End: 05-14-2025 fluticasone (Flonase) 50 MCG /ACT nasal spray 2 sprays in the morning. 11/15/2024 05/14/2025 Active ibuprofen 600 mg oral tablet (7 sources) Nonsteroidal Anti-inflammatory Drug Start: 08-03-2024 ibuprofen (MOTRIN) 600 mg tablet 08/03/2024 Active indapamide 2.5 mg oral tablet (20 sources) Thiazide-like Diuretic Start: 08-24-2023 End: 08-19-2024 take 1 tablet by mouth every other day indapamide (LOZOL) 2.5 mg tablet Indications: Essential hypertension TAKE 1 TABLET BY MOUTH EVERY OTHER DAY 45 tablet 1 08/19/2024 Active INDAPAMIDE ORAL Take by mouth. Active INDAPAMIDE ORAL Take by mouth. 0 Active Comment on above: Take by mouth. losartan potassium 100 mg oral tablet (20 sources) Angiotensin 2 Receptor Betty Start: 4 End: take 1 tablet by mouth once daily in the morning losartan (COZAAR) 100 mg tablet Indications: Essential hypertension TAKE 1 TABLET BY MOUTH EVERY MORNING 90 tablet 1 10/30/2024 Active Start: 05-10-2020 take 50 mg by mouth once daily Losartan Active 50 MG PO Daily 0 May 10, 2020 9:34am Start: 05-08-2020 End: 05-10-2020 take 100 mg by mouth once daily Losartan Discontinued 100 MG PO Daily May 08, 2020 12:00am May 10, 2020 9:34am losartan potassi um (LOSARTAN ORAL) Take by mouth. Active losartan potassi um (LOSARTAN ORAL) Take by mouth. 0 Active Comment on above: Take by mouth. meloxicam 15 mg oral tablet (4 sources) Nonsteroidal Anti-inflammatory Drug Start: 01-18-20 22 take 1 tablet by mouth every twenty-four hours Meloxicam 15 MG 1 tablet Orally Once a day for 30 day(s) December, Active modafinil 100 mg oral tablet (20 sources) Sympathomimetic-like Agent Start: 05-08-20 End: 11-03-19 take 1 tablet by mouth once daily in the morning modafinil (Provigil) 100 MG tablet Indications: Daytime hypersomnolence TAKE 1 TABLET BY MOUTH EVERY MORNING 30 tablet 2 11/02/2024 Active Multivitamin preparation (7 sources) take 1 tablet by mouth once daily multivitamin (MULTIPLE VITAMINS ORAL) Take 1 tablet by mouth daily. Active pantoprazole 40 mg delayed release oral tablet (9 sources) Proton Pump Inhibitor Start: 12-23-19 take 1 tablet by mouth once daily pantoprazole (PROTONIX) 40 mg EC tablet Indications: Heartburn TAKE ONE TABLET BY MOUTH DAILY 90 tablet 1 12/22/2022 Active End: 03-21-2023 pantoprazole sodium (PANTOPR AZOLE ORAL) Take by mouth. 0 03/21/2023 Discontinued (Discontinued by Patient) Comment on above: Take by mouth. potassium chloride 20 meq extended release oral tablet (20 sources) Start: 02-24-2024 End: 08-16-2024 potassium chloride (K-TAB,KLOR-CON) 20 mEq CR tablet Indications: Essential hypertension TAKE 1 TABLET BY MOUTH EVERY MORNING 90 tablet 1 08/16/2024 Active take 1 dose by mouth once daily at mealtime potassium chloride (Klor-Con) 20 MEQ packet Take 20 mEq by mouth Daily 1 packet with food Active rizatriptan 10 mg disintegrating oral tablet (20 sources) Serotonin-1b and Serotonin-1d Receptor Agonist Start: 05-02-2022 rizatriptan (MAXALT BUTTON TUFTING MACHINE OPERATOR) 10 mg disintegrating tablet Take 10 mg by mouth as needed. As needed for migraine 03/01/2023 Active Start: 05-09-2020 take 1 tablet by marcus th every four hours Rizatriptan (Maxalt) 10 mg Tablet Active 10 MG PO Q4H May 09, 2020 12:00am Comment on above: Take 10 mg by mouth as needed. As needed for migraine tiZANidine 4 mg oral tablet (20 sources) Central alpha-2 Adrenergic Agonist Start: 01-21-2023 take 1.5 tablets by mouth once daily at bedtime tiZANidine (ZANAFLEX) 4 mg tablet Take 4 mg by mouth daily at bedtime. 1.5 tablets at bedtime 01/21/2023 Active Start: 05-08-2020 End: 09-28-2024 take 1 tablet by mouth once daily at bedtime tiZANidine (Zanaflex) 4 MG tablet Indications: Cervicalgia TAKE 1.5 TO 2 TABLETS BY MOUTH EVERY NIGHT AT BEDTIME 60 tablet 1 09/28/2024 Active take 1 capsule by mo uth every eight hours tiZANidine HCl 4 MG 1 capsule as needed Orally Three times a day Active Comment on above: Take 4 mg by mouth d aily at bedtime. 1.5 tablets at bedtime traZODone hydrochloride 50 mg oral tablet (2 sources) Serotonin Reuptake Inhibitor Start: 05-08-20 take 50 mg by mouth at bedtime Trazodone Active 50 MG PO Bedtime May 08, 2020 12:00am valACYclovir 1000 mg oral tablet (10 sources) Herpesvirus Nucleoside Analog DNA Polymerase Inhibitor, Herpes Simplex Virus Nucleoside Analog DNA Polymerase Inhibitor, Herpes Zoster Virus Nucleoside Analog DNA Polymerase Inhibitor Start: 11-24-19 25 valACYclovir (Valtrex) 1 g tablet Daily as needed 11/23/2024 Active Start: 06-01-2024 End: 11-23-2024 take 1 tablet by mouth once daily as needed valACYclovir (VALTREX) 1000 mg tablet Indications: Herpes simplex type 1 infection TAKE 1 TABLET BY MOUTH DAILY NEEDED 10 tablet 1 11/23/2024 Active Completed/Discontinued Medications Medication Drug Class(es) Dates Sig (Normalized) Sig (Original) hydroCHLOROthiazide 25 mg / triamterene 37.5 mg oral tablet (6 sources) Potassium-spari ng Diuretic, Thiazide Diuretic Start: 05-08-2020 End: 05-10-2020 take 1 tablet by mouth once daily Triamterene-Oneco chlorothiazid Discontinued 1 TAB PO Daily May 08, 2020 12:00am May 10, 2020 9:34am take 1 capsule by mo [facility] every twenty-four hours Triamterene-HCTZ 37.5-25 MG 1 capsule in the morning Orally Once a day Active triamcinolone acetonide 40 mg/ml injectable suspension (6 sources) Corticosteroid Start: 07-05-2022 Kenalog-40 11 Jun, 2022 40 mg Start: 01-19-2020 Kenalog -40 mg December, 40 mg Problems Active Problems Problem Classification Problem Date Documented Date Episodic/Chronic Acquired foot deformities (20 sources) Right foot drop; Translations: [Foot drop, right foot] Onset: 02-02-2024 02-02-2024 Episodic Anxiety disorders (20 sources) Anxiety disorder; Translations: [Anxiety disorder, unspecified] Onset: 01-07-2008 02-02-2024 Chronic Conduction disorders (9 sources) Right bundle branch block; Translations: [Unspecified right bundle-branch block] Onset: 06-10-2022 05-10-2020 Chronic Diseases of mouth; excluding dental (1 source) Sialolithiasis; Translations: [Sialolithiasis] 01-20-2025 Episodic Disorders of lipid metabolism (12 sources) Hypercholesterolemia; Translations: [Pure hypercholesterolemia, unspecified] Onset: 06-10-2022 05-09-2020 Chronic Essential hypertension (16 sources) Hypertensive disorder; Translations: [Essential (primary) hypertension] Onset: 03-20-2017 05-09-2020 Chronic Fluid and electrolyte disorders (4 sources) Hyponatremia; Translations: [Hypo-osmolality and hyponatremia] 05-09-2020 Episodic Fracture of lower limb (4 sources) Stress fracture, right foot, initial encounter for fracture; Translations: [STRESS FX RT FOOT INITIAL ENCOUNTER] Onset: 11-07-2022 Episodic Headache; including migraine (20 sources) Migraine; Translations: [Migraine, unspecified, not intractable, without status migrainosus] Onset: 01-07-2008 02-02-2024 Chronic Joint disorders and dislocations; trauma-related (4 sources) Patellofemoral stress syndrome; Translations: [Patellofemoral disorders, left knee] Onset: 05-09-2022 Resolved: 05-09-2022 Chronic Menopausal disorders (2 sources) Atrophic vaginitis; Translations: [Postmenopausal atrophic vaginitis] 06-14-2024 Chronic Mood disorders (20 sources) Depressive disorder; Translations: [Depression] Onset: 01-07-2008 02-02-2024 Chronic Nonspecific chest pain (2 sources) Chest pain; Translations: [Chest pain, unspecified] 05-08-2020 Episodic Osteoarthritis (8 sources) Osteoarthritis of left knee joint; Translations: [Unilateral primary osteoarthritis, left knee] Chronic Other acquired deformities (1 source) Incompetence of nasal valve; Translations: [Incompetent nasal valve] 01-20-2025 Episodic Other BALANCE SCREWHEAD POLISHER infection and poliomyelitis (7 sources) Late effects of poliomyelitis; 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] Onset: 06-10-2022 06-10-2022 Chronic Other connective tissue disease (4 sources) Pain in right foot; Translations: [PAIN IN RIGHT FOOT] Onset: 12-25-2022 Episodic Other female genital disorders (2 sources) Pain in female genitalia on intercourse; Translations: [Unspecified dyspareunia] 06-14-2024 Chronic Other hereditary and degenerative nervous system conditions (20 sources) Restless legs; Translations: [Restless legs syndrome] Onset: 12-04-2009 02-02-2024 Chronic Other lower respiratory disease (1 source) Snoring; Translations: [Snoring] 03-21-2023 Episodic Other nervous system disorders (1 source) Cataplexy; Translations: [Narcolepsy with cataplexy] Chronic Other nervous system disorders (1 source) Narcolepsy with cataplexy Chronic Other nervous system disorders (20 sources) Cervical syndrome; Translations: [Cervical root disorders, not elsewhere classified] Onset: 12-20-2011 02-02-2024 Chronic Other non-traumatic joint disorders (3 sources) Pain in left knee Onset: 01-17-2022 Resolved: 05-09-2022 Episodic Other upper respiratory disease (1 source) Hypertrophy of nasal turbinates; Translations: [Hypertrophy of nasal turbinates] 11-15-2024 Episodic Other upper respiratory disease (1 source) Nasal obstruction; Translations: [Other specified disorders of nose and nasal sinuses] 01-20-2025 Episodic Other upper respiratory disease (1 source) Deviated nasal septum; Translations: [Deviated nasal septum] 05-29-2025 Episodic Other upper respiratory infections (1 source) Acute pharyngitis, unspecified; Translations: [Acute pharyngitis] 03-03-2024 Episodic Paralysis (20 sources) Hemiplegia; Translations: [Hemiplegia, unspecified affecting unspecified side] Onset: 01-07-2008 02-02-2024 Chronic Prolapse of female genital organs (2 sources) Midline cystocele; Translations: [Cystocele, midline] 06-14-2024 Chronic Residual codes; unclassified (1 source) Obstructive sleep apnea (adult)(pediatric); Translations: [Obstructive sleep apnea (adult) (pediatric)] Onset: 10-23-2022 Chronic Residual codes; unclassified (10 sources) Daytime somnolence; Translations: [Other hypersomnia] 03-21-2023 Chronic Residual codes; unclassified (1 source) Insomnia; Translations: [Other insomnia] Chronic Residual codes; unclassified (20 sources) Obstructive sleep apnea syndrome; Translations: [Obstructive sleep apnea (adult) (pediatric)] Onset: 12-25-2017 03-21-2023 Chronic Residual codes; unclassified (1 source) Obstructive sleep apnea (adult) (pediatric) Chronic Residual codes; unclassified (1 source) Other hypersomnia Chronic Residual codes; unclassified (1 source) Other insomnia Chronic Residual codes; unclassified (20 sources) Hypersomnia; Translations: [Hypersomnia, unspecified] Onset: 12-25-2017 05-16-2023 Chronic Residual codes; unclassified (20 sources) Periodic limb movement disorder; Translations: [Periodic limb movement disorder] Onset: 12-25-2017 02-02-2024 Chronic Residual codes; unclassified (13 sources) Periodic leg movements of sleep ; Translations: [Periodic limb movement disorder] Onset: 12-25-2017 02-02-2024 Chronic Residual codes; unclassified (1 source) Hypnagogic hallucinations; Translations: [Other hallucinations] Episodic Residual codes; unclassified (1 source) Other specified health status Episodic Residual codes; unclassified (1 source) Other hallucinations Episodic Skull and face fractures (6 sources) Closed fracture of nasal bones; Translations: [Closed, displaced fracture of nasal bone] Onset: 11-25-2024 11-16-2024 Episodic Substance-related disorders (2 sources) Hypnotic dependence; Translations: [Sedative, hypnotic or anxiolytic dependence, 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 Thyroid disorders (3 sources) Hypothyroidism, unspecified; Translations: [Nontoxic single thyroid nodule] Onset: 08-26-2023 Chronic Unclassified (1 source) M25.562 - Pain in left knee; Translations: [M25.562 - Pain in left knee] Onset: 01-17-2022 Unclassified (1 source) MAW Onset: 04-08-2024 Unclassified (1 source) Spinal stenosis of lumbar region with neurogenic claudication [M48.062] Onset: 05-21-2024 Urinary tract infections (7 sources) Chronic interstitial cystitis; Translations: [Interstitial cystitis (chronic) without hematuria] Onset: 07-14-2018 09-22-2018 Chronic Viral infection (1 source) Herpes simplex type 1 infection; Translations: [Herpesviral infection, unspecified] 11-23-2024 Episodic Past or Other Problems Problem Classification Problem Date Documented Date Episodic/Chronic Conditions associated with dizziness or vertigo (20 sources) Dizziness; Translations: [Dizziness and giddiness] Onset: 2 02-02-2024 Episodic Deficiency and other anemia (20 sources) Anemia; Translations: [Anemia, unspecified] Onset: 9 02-02-2024 Episodic Gastritis and duodenitis (7 sources) Superficial nonerosive nonspecific gastritis; Translations: [Chronic superficial gastritis without bleeding] Onset: 1 Resolved: 2 06-10-2022 Chronic Headache; including migraine (20 sources) Headache; Translations: [Headache] Onset: 8 02-02-2024 Episodic Immunizations and screening for infectious disease (1 source) Encounter for immunization; Translations: [Encounter for immunization] Onset: 4 Episodic Malaise and fatigue (20 sources) Fatigue; Translations: [Other fatigue] Onset: 1 02-02-2024 Episodic Mood disorders (7 sources) Mood disorders Onset: 4 08-04-2024 Other bone disease and musculoskeletal deformities (7 sources) Osteopenia; Translations: [Other specified disorders of bone density and structure, unspecified site] Onset: 6 06-10-2022 Episodic Other [employer] SCREW[employer] POLISHER infection and poliomyelitis (20 sources) Acute poliomyelitis; Translations: [Acute poliomyelitis, unspecified] Onset: 8 05-09-2020 Episodic Other connective tissue disease (1 source) Other muscle spasm Onset: 2 Resolved: 2 Episodic Other connective tissue disease (1 source) Other shoulder lesions, right shoulder Onset: 2 Resolved: 2 Episodic Other connective tissue disease (20 sources) Fibromyalgia; Translations: [Fibromyalgia] Onset: 5 02-02-2024 Episodic Other connective tissue disease (20 sources) Spasm; Translations: [Other muscle spasm] Onset: 5 02-02-2024 Episodic Other diseases of kidney and ureters (1 source) Cyst of kidney, acquired; Translations: [Cyst of kidney, acquired] Onset: 4 Episodic Other nervous system disorders (20 sources) Numbness and tingling sensation of skin; Translations: [Anesthesia of skin] Onset: 0 02-02-2024 Episodic Other nervous system disorders (20 sources) Skin sensation disturbance; Translations: [Unspecified disturbances of skin sensation] Onset: 4 02-02-2024 Episodic Other nervous system disorders (20 sources) Paresthesia; Translations: [Paresthesia of skin] Onset: 4 02-02-2024 Episodic Other nervous system disorders (20 sources) Anesthesia of skin; Translations: [Anesthesia of skin] Onset: 4 02-02-2024 Episodic Other nervous system disorders (7 sources) H/O: migraine; Translations: [Personal history of other diseases of the nervous system and sense organs] Onset: 2 06-10-2022 Episodic Other non-traumatic joint disorders (20 sources) Shoulder joint pain; Translations: [Pain in unspecified shoulder] Onset: 0 02-02-2024 Episodic Other non-traumatic joint disorders (1 source) Pain in right hip; Translations: [Pain in right hip] Onset: 4 Episodic Other nutritional; endocrine; and metabolic disorders (20 sources) Abnormal weight gain; Translations: [Abnormal weight gain] Onset: 9 02-02-2024 Episodic Other screening for suspected conditions (not mental disorders or infectious disease) (7 sources) Electrocardiogram abnormal; Translations: [Abnormal electrocardiogram [ECG] [EKG]] Onset: 4 05-08-2020 Episodic Residual codes; unclassified (20 sources) Insomnia; Translations: [Insomnia, unspecified] Onset: 9 02-02-2024 Episodic Residual codes; unclassified (1 source) Asymptomatic menopausal state; Translations: [Asymptomatic menopausal state] Onset: 4 Episodic Screening and history of mental health and substance abuse codes (7 sources) H/O: depression; Translations: [Personal history of other mental and behavioral disorders] Onset: 2 06-10-2022 Episodic Spondylosis; intervertebral disc disorders; other back problems (20 sources) Neck pain; Translations: [Cervicalgia] Onset: 1 02-02-2024 Episodic Results Test Name Value Interpretation Reference Range Facility CT FACIAL BONE/ATUL WO IVCON on 11-25-2024 CT FACIAL BONE/ATUL WO IVCON * * *Final Report* * * DATE OF EXAM: Nov 25 2024 6:[address] [place] [address]507 - CT FACIAL BONE/ATUL WO IVCON [...] the facial bones. Elongated styloid processes bilaterally. IMPRESSION: Sequelae of nasal bone fracture as detailed above. Anesthesiologist Physician: PSCB Transcribe Date/Time: Nov 28 2024 11:16A Dictated by : CARLOS CHANDLER MD This examination was interpreted and the report reviewed and electronically signed by: CARLOS CHANDLER MD on Nov 28 2024 11:19AM EST [id number] [facility] CNOVon 11-15-2024 CNOV Office Visit (OTPREJ ) ANUSHKA PERDUE ([id number]) 1955 F Date Time Provider Department 11/15/24 9:00 AM RADHA ZELAYA OTPREJ During your visit today, we recorded the following information about you: Radha Zelaya MD 11/16/2024 8:20 AM Signed Section of Facial Plastic AND Reconstructive Surgery [facility], [facility] NEW PATIENT CONSULTATION CC: nasal obstruction / nasal pain Referring Provider: No referring provider defined for this encounter. Phone: N/A Fax: My recommendations will be communicated to the referring provider via the electronic medical record or US mail. IMPRESSION AND PLAN: Anushka Perdue is a 68 year [...] a virtual visit to review the plan. Radha Zelaya MD Facial Plastic and Reconstructive Surgery Head and Neck [facility] 11/15/2024 HISTORY OF PRESENT ISSUE: Anushka Perdue is a 68 year old female who presents for evaluation of nasal obstruction and nasal pain. She has a history of severe trauma with reconstructive septorhinoplasty. Sustained both nasal and orbital fractures She has developed worsening nasal obstruction. Has tried nasal steroid sprays without improvement. Nasal obstruction affects both sleep and activity. Left side is worse than right. Has pain due to bony irregularities of the dorsum. She is unable to wear glasses for a significant period of time because of this. I reviewed the patient's past medical history, past surgical history, social history, family medical history, allergies, and current medications. PHYSICAL EXAM: vitals were not taken for this visit. 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 Had surgery before in [place] [employer] about 35 years ago. 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 - losartan potassium (LOSARTAN ORAL) Take by mouth. - INDAPAMIDE ORAL Take by mouth. - atorvastatin (LIPITOR) 40 mg tablet Take 40 mg by mouth once daily. - clonazePAM (KLONOPIN) 0.5 mg tablet Take 0.5 mg by mouth daily at bedtime. 1.5 tablets at night - escitalopram oxalate (LEXAPRO) 20 mg tablet Take 20 mg by mouth daily at bedtime. - tiZANidine (ZANAFLEX) 4 mg tablet Take 4 mg by mouth daily at bedtime. 1.5 tablets at bedtime - rizatriptan (MAXALT BUTTON TUFTING MACHINE OPERATOR) 10 mg disintegrating tablet Take 10 mg by mouth as needed. As needed for migraine Problem List As Of Date: 11/15/2024 (None) Prescriptions ordered this encounter Disp Refills Start End FLUTICASONE PROPIONATE 50 MCG/ACTUAT* 1 Ea* 5 11/15/2024 05/14/2025 Route: EACH NOSTRIL Sig: Use 2 Sprays in each nostril once daily. Level of Service: OFFICE/OUTPATIENT [facility] 45 MINUTES [09906] Additional E/M codes: VISIT CPLX INHERENT EANDM ASSOC WITH MED * Encounter Status:Closed by RADHA ZELAYA on 11/16/24 Normal [facility] BASIC METABOLIC PANLon 08-04 Anion gap [Moles/Vol] 10 mmol/L Normal 5-[address] [facility] Comment on above: Performed By: #### B MP #### [facility] ([id number]) [address], [address] [place] [address] Calcium [Mass/Vol] 10.1 mg/dL Normal 8.5-10.5 [facility] Comment on above: Performed By: #### B MP #### [facility] ([id number]) [address], [address] [place] [address] Chloride [Moles/Vol] 105 mmol/L Normal 98-109 [facility] Comment on above: Performed By: #### B MP #### [facility] ([id number]) [address], [address] [place] [address] CO2 [Moles/Vol] 26 mmol/L Normal 22-32 [facility] Comment on above: Performed By: #### B MP #### [facility] ([id number]) [address], [address] [place] [address] Creatinine [Mass/Vol] 0.77 mg/dL Normal 0.40-1.[address] [facility] Comment on above: Result Comment: METH OD TRACEABLE TO IDMS STANDARD Performed By: #### B MP #### [facility] ([id number]) [address], [address] [place] [address] GFR/1.73 sq M.predicted among non-blacks MDRD (S/P/Bld) [Vol rate/Area] 84 mL/min/{1.73_m2} Normal >59 [facility] Comment on above: Result Comment: Reported eGFR is based on the CKD-EPI 2020 equation that does not use a race coefficient. Performed By: #### B MP #### [facility] ([id number]) [address], [address] [place] [address] Glucose [Mass/Vol] 94 mg/dL Normal 65-99 [facility] Comment on above: Performed By: #### B MP #### [facility] ([id number]) [address] [place] [address] Potassium [Moles/Vol] 4.3 mmol/L Normal 3.5-5.[address] [facility] Comment on above: Performed By: #### B MP #### [facility] ([id number]) [address], [address] [place] [address] Sodium [Moles/Vol] 141 mmol/L Normal 134-146 [facility] Comment on above: Performed By: #### B MP #### [facility] ([id number]) [address] [place] [address] Urea nitrogen [Mass/Vol] 25 mg/dL Normal 5-27 [facility] Comment on above: Performed By: #### B MP #### [facility] ([id number]) [address] [place] [address] IGP,rfx Aptima HPV all pthon 06-17-2024 . Comment [facility] Comment on above: The HPV DNA reflex c riteria were not met with this specimen result therefore, no HPV testing was performed. Multimedia Authoring Specialist Cyto stain Nom (Cvx/Vag) [ID] Comment [facility] Comment on above: Lindsay alexandra, Sole Splitter (ASCP) Cytology report Cyto stain Doc (Cvx/Vag) Comment [facility] Comment on above: NEGATIVE FOR INTRAEP ITHELIAL LESION OR MALIGNANCY. CELLULAR CHANGES ASSOCIATED WITH ATROPHY AND INFLAMMATION ARE PRESENT. Cytology report Cyto stain.thin prep Doc (Cvx/Vag) Comment [facility] Comment on above: This liquid based Th inPrep(R) pap test was screened with the use of an image guided system. Diagnosis ICD code [Identifier] Comment [facility] Comment on above: Z12.4 Microscopic observation Other stain Nom (Unsp spec) . [facility] Note: Comment [facility] Comment on above: The Pap smear is a s creening test designed to aid in the detection of premalignant and malignant conditions of the uterine cervix. It is not a diagnostic procedure and should not be used as the sole means of detecting cervical cancer. Both false-positive and false-negative reports do occur. Statement of adequacy Cyto stain (Cvx/Vag) [Interp] Comment [facility] Comment on above: Satisfactory for saadia luation. Endocervical component may not be distinguished in cases of atrophy. Performed at: [address] [id number] Tapper Hand: Kami Martínez MD, Phone: [phone] Specimen Comment: No. of containers..01 [facility] RETROPER[facility]AL LIMITEDon 04-14-2024 US RETROPERITONEAL LIMITED US RETROPERITONEAL LIMITED *ADDENDUM*The first paragraph second sentence should read at the inferior pole there is a 1.5 cm renal cyst with adjacent subcentimeter echogenic focus which may relate to a nonobstructing calculus Finalized by Irvin Garcia MD on 04/14/2024 8:04 AM Normal [facility] US THYROIDon 04-14-2024 US THYROID US THYROID CLINICAL INFORMATION: Thyroid nodule. Thyroid nodules incidentally [...] Alex Botello MD on 04/14/2024 7:41 AM Normal [facility] MR CERVICAL SPINE WO CONTon 04-09-2024 MR CERVICAL SPINE WO CONT MR CERVICAL SPINE WO CONT MR CERVICAL SPINE WO CONT 04/06/2024 12:47 PM INDICATION: Cervical radiculopathy and neck pain, chronic COMPARISON: MR cervical spine 11/19/2011 TECHNIQUE: Multiplanar multisequence MR images of the cervical spine without contrast were obtained. FINDINGS: NUMBERING/ALIGNMENT: There are 7 cervical type vertebrae. Approximately 1 to 2 mm retrolisthesis of C5 on C6, likely degenerative. Facet alignment is appropriate. Vertebral body heights are well-maintained. BONE MARROW: Bone marrow signal slightly heterogeneous throughout. SPINAL CORD: Spinal cord signal and morphology is normal. HEAD: Visualized portions of the intracranial contents are unremarkable. SOFT TISSUES: Multiple thyroid nodules, partially visualized, measuring at least 1.2 cm. DEGENERATIVE FINDINGS: Moderate degenerative disc disease throughout. Craniocervical junction: Normal alignment at the craniocervical junction without narrowing at the foramen magnum and at C1-C2. Moderate degenerative changes of the dens. C2-C3: Mild disc osteophyte complex, slightly eccentric left. There is mild saturation. There is mild spinal canal stenosis. C3-C4: Mild disc osteophyte complex and uncovertebral joint hypertrophy. There is mild facet degeneration. There is mild spinal canal stenosis and mild bilateral neural foraminal narrowing. These findings are progressed prior exam. C4-C5: Moderate facet degeneration. Mild right neural foraminal narrowing. C5-C6: Mild to moderate disc osteophyte complex uncovertebral hypertrophy. There is mild facet degeneration mild ligamentum flavum hypertrophy. There is moderate spinal canal stenosis. There is moderate right and mild left neural foraminal narrowing. These findings are overall similar compared to prior exam, slight change in configuration of disc osteophyte complex. C6-C7: Mild disc osteophyte complex and mild facet degeneration as well as mild ligamentum flavum hypertrophy. There is mild to moderate spinal canal stenosis. There is mild bilateral neural foraminal narrowing. These findings are slightly progressed compared to prior exam. C7-T1: No significant neural foraminal or thecal sac narrowing. IMPRESSION: 1. Multilevel degenerative changes as described, overall slightly progressed compared to prior with findings most prominent at T5-6, which is overall similar to prior exam in degree of stenosis. 2. Multiple thyroid nodules. Further evaluation with thyroid ultrasound recommended. Approved by Resident: Pietro Cantor DO on 04/09/2024 8:58 AM IKolton DO have personally reviewed the image(s) and agree with and/or edited the report Finalized by Kolton Spain DO on 04/09/2024 9:47 AM Normal [facility] MR LUMBAR SPINE WO CONTon MR LUMBAR SPINE WO CONT MR LUMBAR SPINE WO CONT MR LUMBAR SPINE WO CONT 04/06/2024 12:46 PM INDICATION: Spinal stenosis of lumbar region without neurogenic claudication, low back pain COMPARISON: MRI lumbar spine 02/19/2012 TECHNIQUE: Multiplanar multisequence MR images of the lumbar spine without contrast were obtained. FINDINGS: NUMBERING/ALIGNMENT: There are 5 lumbar type vertebrae. L5 is a transitional segment and partially sacralized. There is mild approximately 2 mm of right lateral listhesis of L4 and L5. Facet alignment is appropriate. Vertebral body heights are well-maintained. BONE MARROW: Bone marrow signal throughout is just throughout. There are degenerative endplate changes. SPINAL CORD: Visualized portions of the spinal cord are unremarkable. Conus medullaris tip is at L1. Slight redundancy in the cauda equina nerve roots inferior to the L2-L3 level, likely due to stenosis at that level. SACRUM: Visualized portions of the sacrum are unremarkable. SOFT TISSUES: Multiple indeterminate lesions of the kidneys, not definitively cortical cysts on this exam. DEGENERATIVE FINDINGS: Moderate degenerative disc disease throughout. Prominence of the epidural fat throughout. L1-L2: Mild facet degeneration mild disc bulge. There is no significant spinal canal or neural foraminal stenosis. L2-L3: Moderate disc bulge, moderate saturation, and mild to moderate ligamentum flavum artery. There is severe spinal canal stenosis. There is mild to moderate bilateral neural foraminal narrowing. These findings are progressed compared to prior exam. L3-L4: Mild disc bulge and moderate facet degeneration as well as mild ligamentum flavum hypertrophy. There is moderate spinal canal stenosis. There is mild to moderate bilateral neural foraminal narrowing. These findings are progressed compared to prior exam. L4-L5: Moderate disc bulge and moderate facet degeneration as well as mild ligamentum flavum hypertrophy. There is mild to moderate spinal canal stenosis. There is moderate to severe right greater than left neural foraminal narrowing. These findings are slightly progressed compared to prior exam. L5-S1: Mild disc bulge. There is mild effacement of thecal sac. IMPRESSION: 1. Multilevel degenerative changes of the lumbar spine as described, progressed compared to prior exam, with severe spinal canal stenosis at L2-L3. 2. Transitional lumbar anatomy, with partially sacralized L5 segment. 3. Multiple indeterminate renal lesions. Further evaluation with dedicated renal imaging recommended. Approved by Resident: Pietro Cantor DO on 04/09/2024 8:59 AM Kolton Pal DO have personally reviewed the image(s) and agree with and/or edited the report Finalized by Kolton Spain DO on 04/09/2024 9:59 AM Normal [facility] No Panel InformationOrdered By: Ayana Knight on 03-03-2024 Quick Strep (POC) [facility] COMPREHENSIVE METABOLIC PANE Alfonso 02-03-2024 Albumin [Mass/Vol] 4.0 g/dL Normal 3.2-5.3 [facility] Comment on above: Performed By: #### C , 32511-2 #### [facility] ([id number]) [address], [address] [place] [address] ALP [Catalytic activity/Vol] 120 U/L Normal 39-130 [facility] Comment on above: Performed By: #### Mike CUENCA 41028-2 #### [facility] ([id number]) [address], [address] [place] [address] ALT [Catalytic activity/Vol] 18 U/L Normal 0-31 [facility] Comment on above: Performed By: #### Mike CUENCA 18031-9 #### [facility] ([id number]) [address], [address] [place] [address] Anion gap [Moles/Vol] 6 mmol/L Normal 5-[address] [facility] Comment on above: Performed By: #### Mike CUENCA 51406-0 #### [facility] ([id number]) [address], [address] [place] [address] AST [Catalytic activity/Vol] 20 U/L Normal 0-41 [facility] Comment on above: Performed By: #### Mike CUENCA 63527-7 #### [facility] ([id number]) [address], [address] [place] [address] Bilirubin [Mass/Vol] 0.7 mg/dL Normal 0.3-1.2 [facility] Comment on above: Performed By: #### Mike CUENCA 11172-0 #### [facility] ([id number]) [address], [address] [place] [address] Calcium [Mass/Vol] 9.3 mg/dL Normal 8.5-10.5 [facility] Comment on above: Performed By: #### Mike CUENCA 87547-6 #### [facility] ([id number]) [address], [address] [place] [address] Chloride [Moles/Vol] 107 mmol/L Normal 98-109 [facility] Comment on above: Performed By: #### Mike CUENCA 85517-5 #### [facility] ([id number]) [address], [address] [place] [address] CO2 [Moles/Vol] 31 mmol/L Normal 22-32 [facility] Comment on above: Performed By: #### Mike CUENCA, 20446-9 #### [facility] ([id number]) [address], [address] [place] [address] Creatinine [Mass/Vol] 0.61 mg/dL Normal 0.40-1.[address] [facility] Comment on above: Result Comment: METH OD TRACEABLE TO IDMS STANDARD Performed By: #### Mike CUENCA, 84375-8 #### [facility] ([id number]) [address], [address] [place] [address] eGFR (CKD-EPI) NON-RACE DEPENDENT >90 Normal >59 [facility] Comment on above: Result Comment: Reported eGFR is based on the CKD-EPI 2020 equation that does not use a race coefficient. Performed By: #### Mike CUENCA, 59488-3 #### [facility] ([id number]) [address], [address] [place] [address] Glucose [Mass/Vol] 90 mg/dL Normal 65-99 [facility] Comment on above: Performed By: #### Mike CUENCA, 05908-1 #### [facility] ([id number]) [address], [address] [place] [address] Potassium [Moles/Vol] 3.9 mmol/L Normal 3.5-5.[address] [facility] Comment on above: Performed By: #### Mike CUENCA, 89522-3 #### [facility] ([id number]) [address], [address] [place] [address] Protein [Mass/Vol] 6.6 g/dL Normal 6.0-8.0 [facility] Comment on above: Performed By: #### Mike CUENCA, 19988-5 #### [facility] ([id number]) [address], [address] [place] [address] Sodium [Moles/Vol] 144 mmol/L Normal 134-146 [facility] Comment on above: Performed By: #### Mike CUENCA, 58680-5 #### [facility] ([id number]) [address], [address] [place] [address] Urea nitrogen [Mass/Vol] 16 mg/dL Normal 5-27 [facility] Comment on above: Performed By: #### Mike CUENCA, 13748-3 #### [facility] ([id number]) [address], [address] [place] [address] Lipid 1996 panelon 4 Cholesterol [Mass/Vol] 176 mg/dL Normal 150-200 [facility] Comment on above: Performed By: #### Mike CUENCA, 46555-2 #### [facility] ([id number]) [address], [address] [place] [address] Cholesterol in HDL [Mass/Vol] 57 mg/dL Normal >39 [facility] Comment on above: Result Comment: HDL <40 mg/dL - High Risk HDL > or = 40mg/dL- Desirable HDL >60 mg/dL - Negative Risk Performed By: #### Mike CUENCA, 25856-0 #### [facility] ([id number]) [address], [address] [place] [address] Cholesterol in LDL [Mass/Vol] 102 mg/dL Normal <130 [facility] Comment on above: Result Comment: LDL <100 mg/dL - Desirable LDL >160 mg/dL - High Risk Performed By: #### Mike CUENCA, 17768-2 #### [facility] ([id number]) [address], [address] [place] [address] Cholesterol in VLDL [Mass/Vol] 17 mg/dL Normal 0-30 [facility] Comment on above: Performed By: #### Mike CUENCA, 03983-4 #### [facility] ([id number]) [address] [place] [address] CHOLESTEROL:HDL 3.1 Normal 1.0-5.0 [facility] Comment on above: Performed By: #### Mike CUENCA, 90994-2 #### [facility] ([id number]) [address], [address] [place] [address] Triglyceride [Mass/Vol] 87 mg/dL Normal 27-150 [facility] Comment on above: Performed By: #### Mike CUENCA, 63473-8 #### [facility] ([id number]) [address], [address] [place] [address] COMPREHENSIVE METABOLIC PANE Alfonso 08-26-2023 Albumin [Mass/Vol] 4.2 g/dL Normal 3.2-5.3 [facility] Comment on above: Performed By: #### Mike CUENCA, 40700-7, TSHR #### [facility] ([id number]) [address], [address] [place] [address] ALP [Catalytic activity/Vol] 110 U/L Normal 39-130 [facility] Comment on above: Performed By: #### Mike CUENCA, 46837-7, TSHR #### [facility] ([id number]) [address], [address] [place] [address] ALT [Catalytic activity/Vol] 25 U/L Normal 0-31 [facility] Comment on above: Performed By: #### Mike CUENCA, 19178-5, TSHR #### [facility] ([id number]) [address], [address] [place] [address] Anion gap [Moles/Vol] 7 mmol/L Normal 5-[address] [facility] Comment on above: Performed By: #### Mike CUENCA 08268-8, TSHR #### [facility] ([id number]) [address] [place] [address] AST [Catalytic activity/Vol] 19 U/L Normal 0-41 [facility] Comment on above: Performed By: #### Mike CUENCA 84114-5, TSHR #### [facility] ([id number]) [address], [address] [place] [address] Bilirubin [Mass/Vol] 0.8 mg/dL Normal 0.3-1.2 [facility] Comment on above: Performed By: #### Mike CUENCA 34599-1, TSHR #### [facility] ([id number]) [address] [place] [address] Calcium [Mass/Vol] 9.4 mg/dL Normal 8.5-10.5 [facility] Comment on above: Performed By: #### Mike CUENCA 14138-4, TSHR #### [facility] ([id number]) [address], [address] [place] [address] Chloride [Moles/Vol] 104 mmol/L Normal 98-109 [facility] Comment on above: Performed By: #### Mike CUENCA 96462-2, TSHR #### [facility] ([id number]) [address], [address] [place] [address] CO2 [Moles/Vol] 29 mmol/L Normal 22-32 [facility] Comment on above: Performed By: #### Mike CUENCA, 10810-4, TSHR #### [facility] ([id number]) [address] [place] [address] Creatinine [Mass/Vol] 0.58 mg/dL Normal 0.40-1.[address] [facility] Comment on above: Result Comment: METH OD TRACEABLE TO IDMS STANDARD Performed By: #### C JOELLEN 76349-1, TSHR #### [facility] ([id number]) [address] [place] [address] eGFR (CKD-EPI) NON-RACE DEPENDENT >90 Normal >59 [facility] Comment on above: Result Comment: Reported eGFR is based on the CKD-EPI 2020 equation that does not use a race coefficient. Performed By: #### C JOELLEN 17218-7, TSHR #### [facility] ([id number]) [address], [address] [place] [address] Glucose [Mass/Vol] 86 mg/dL Normal 65-99 [facility] Comment on above: Performed By: #### Mike CUENCA 26017-4, TSHR #### [facility] ([id number]) [address], [address] [place] [address] Potassium [Moles/Vol] 3.8 mmol/L Normal 3.5-5.[address] [facility] Comment on above: Performed By: #### Mike CUENCA, 90068-3, TSHR #### [facility] ([id number]) [address], [address] [place] [address] Protein [Mass/Vol] 6.9 g/dL Normal 6.0-8.0 [facility] Comment on above: Performed By: #### Mike CUENCA, 10583-8, TSHR #### [facility] ([id number]) [address], [address] [place] [address] Sodium [Moles/Vol] 140 mmol/L Normal 134-146 [facility] Comment on above: Performed By: #### Mike CUENCA, 14113-2, TSHR #### [facility] ([id number]) [address], [address] [place] [address] Urea nitrogen [Mass/Vol] 18 mg/dL Normal 5-27 [facility] Comment on above: Performed By: #### Mike CUENCA, 97410-0, TSHR #### [facility] ([id number]) [address], [address] [place] [address] Lipid 1996 panelon 4 Cholesterol [Mass/Vol] 194 mg/dL Normal 150-200 Pr [facility] Comment on above: Performed By: #### Mike CUENCA, 30738-3, TSHR #### [facility] ([id number]) [address], [address] [place] [address] Cholesterol in HDL [Mass/Vol] 65 mg/dL Normal >39 [facility] Comment on above: Result Comment: HDL <40 mg/dL - High Risk HDL > or = 40mg/dL- Desirable HDL >60 mg/dL - Negative Risk Performed By: #### Mike CUENCA, 50373-4, TSHR #### [facility] ([id number]) [address], [address] [place] [address] Cholesterol in LDL [Mass/Vol] 109 mg/dL Normal <130 [facility] Comment on above: Result Comment: LDL <100 mg/dL - Desirable LDL >160 mg/dL - High Risk Performed By: #### Mike CUENCA, 47631-8, TSHR #### [facility] ([id number]) [address], [address] [place] [address] Cholesterol in VLDL [Mass/Vol] 20 mg/dL Normal 0-30 [facility] Comment on above: Performed By: #### Mike CUENCA, 78428-6, TSHR #### [facility] ([id number]) [address], [address] [place] [address] CHOLESTEROL:HDL 3.0 Normal 1.0-5.0 [facility] Comment on above: Performed By: #### C JOELLEN, 11205-8, TSHR #### [facility] ([id number]) [address], [address] [place] [address] Triglyceride [Mass/Vol] 102 mg/dL Normal 27-150 [facility] Comment on above: Performed By: #### C JOELLEN, 58230-2, TSHR #### [facility] ([id number]) [address], [address] [place] [address] TSH WITH REFLEXon 08-26-2023 TSH 0.99 uIU/mL Normal 0.49-4.67 [facility] Comment on above: Performed By: #### C JOELLEN, 40439-9, TSHR #### [facility] ([id number]) [address], [address] [place] [address] XR pelvis 1-2Von 01-17-2022 XR pelvis 1-2V [facility] [place] [address] XRay Report Signed Patient: Anushka Perdue MR#: [id number] : 1955 Acct:[id number] Age/Sex: 66 / F ADM Date: 01/17/22 Loc: [facility] Room: Type: [facility] Attending Dr: Cory Roy II, MD Ordering Provider: Cory Roy MD Date of Service: 01/17/22 XR/XR knee LT 4V*: Acute pain of left knee ([id number]) XR/XR pelvis 1-2V: Acute pain of left knee Copies to: Cory Roy MD LEFT KNEE - 4 views, one view pelvis CLINICAL HISTORY: Left knee pain for 3 years. COMPARISON: Left knee 12/14/2021 FINDINGS: Left knee: No knee joint effusion. No acute bony process. Joint spaces are maintained. No significant degenerative change. Pelvis: No soft tissue abnormality. Minimal degenerative changes of the hips. No significant joint space narrowing. Degenerative changes are also noted involving the SI joints. XR/XR knee LT 4V* IMPRESSION: 1. NO ACUTE BONY PROCESS OR SIGNIFICANT DEGENERATIVE CHANGE INVOLVING THE LEFT KNEE. 2. MINIMAL DEGENERATIVE CHANGES OF THE HIPS. Impression dictated by: Nicholas Varma Jr., D.O.01/17/2022 1:20 PM Dictation Location: [place] [address] Transcribed By: [facility] 01/17/22 1320 Dictated By: Nicholas Varma Jr, DO 01/17/22 1318 Signed By: 01/17/22 1320 Normal [facility] COMPREHENSIVE METABOLIC PANE Alfonso 01-02-2022 Albumin [Mass/Vol] 4.2 g/dL Normal 3.6-5.1 [facility] Comment on above: Performed By: #### 7 600, 86854 #### [facility] [place] [address] [employer] Worker: Valente Blanco MD Albumin/Globulin [Mass ratio] 1.8 {ratio} Normal 1.0-2.5 [facility] Comment on above: Performed By: #### 7 600, 67064 #### [facility] [place] [address] [employer] Worker: Valente Blanco MD ALP [Catalytic activity/Vol] 118 U/L Normal 37-153 [facility] Comment on above: Performed By: #### 7 600, 74831 #### [facility] [place] [address] [employer] Coating Worker: Valente Blanco MD ALT [Catalytic activity/Vol] 17 U/L Normal 6-29 [facility] Comment on above: Performed By: #### 7 600, 59492 #### [facility] [place] [address] [employer] Worker: Valente Blanco MD AST [Catalytic activity/Vol] 17 U/L Normal 10-35 [facility] Comment on above: Performed By: #### 7 600, 80678 #### [facility] of [address], [address] [place] [address] [employer] Worker: Valente Blanco MD Bilirubin [Mass/Vol] 0.7 mg/dL Normal 0.2-1.2 [facility] Comment on above: Performed By: #### 7 600, 89073 #### [facility] of [address], [address] [place] [address] Pain[employer] And Coating Worker: Valente Blanco MD BUN/CREATININE RATIO NOT APPLICABLE Normal 6-22 [facility] Comment on above: Performed By: #### 7 600, 44655 #### [facility] [address], [address] [place] [address] [employer] Coating Worker: Valente Blanco MD Calcium [Mass/Vol] 9.3 mg/dL Normal 8.6-10.4 [facility] Comment on above: Performed By: #### 7 600, 71622 #### [facility] [address], [address] [place] [address] [employer] Coating Worker: Valente Blanco MD Chloride [Moles/Vol] 103 mmol/L Normal 98-110 [facility] Comment on above: Performed By: #### 7 600, 03737 #### [facility] [address], [address] [place] [address] [employer] Co[employer] Worker: Valente Blanco MD CO2 [Moles/Vol] 29 mmol/L Normal 20-32 [facility] Comment on above: Performed By: #### 7 600, 16727 #### [facility] of [address], [address] [place] [address] [employer] Worker: Valente Blanco MD Creatinine [Mass/Vol] 0.68 mg/dL Normal 0.50-0.99 [facility] Comment on above: Result Comment: For patients >49 years of age, the reference limit for Creatinine is approximately 13% higher for people identified as -[place]. Performed By: #### 7 600, 57168 #### [facility] [address], [address] [place] [address] [employer] And Co[employer] Worker: Valente Blanco MD eGFR NON-AFR. BELGIAN 91 mL/min/1.73m2 Normal > OR = 60 [facility] Comment on above: Performed By: #### 7 600, 72425 #### [facility] [address], [address] [place] [address] [employer] Worker: Valente Blanco MD GFR/1.73 sq M.predicted among blacks MDRD (S/P/Bld) [Vol rate/Area] 106 mL/min/{1.73_m2} Normal > OR = 60 [facility] Comment on above: Performed By: #### 7 600, 21154 #### [facility] of [address], [address] [place] [address] [employer] Worker: Valente Blanco MD Globulin (S) [Mass/Vol] 2.4 g/dL Normal 1.9-3.7 [facility] Comment on above: Performed By: #### 7 600, 07626 #### [facility] of [address], [address] [place] [address] [employer] Worker: Valente Blanco MD Glucose [Mass/Vol] 77 mg/dL Normal 65-99 [facility] Comment on above: Result Comment: Fasting reference interval Performed By: #### 7 600, 82959 #### [facility] [address], [address] [place] [address] [employer] Co[employer] Worker: Valente Blanco MD Potassium [Moles/Vol] 3.4 mmol/L Low 3.5-5.[address] [facility] Comment on above: Performed By: #### 7 600, 40811 #### [facility] of [address], [address] [place] [address] [employer] Worker: Valente Blanco MD Protein [Mass/Vol] 6.6 g/dL Normal 6.1-8.1 [facility] Comment on above: Performed By: #### 7 600, 94916 #### [facility] [address], [address] [place] [address] [employer] Coating Worker: Valente Blanco MD Sodium [Moles/Vol] 141 mmol/L Normal 135-146 [facility] Comment on above: Performed By: #### 7 600, 48085 #### [facility] [place] [address] [employer] Worker: Valente Blanco MD Urea nitrogen [Mass/Vol] 18 mg/dL Normal 7-25 [facility] Comment on above: Performed By: #### 7 600, 83112 #### [facility] [place] [address] [employer] Worker: Valente Blanco MD LIPID PANEL, [facility] 05- Cholesterol [Mass/Vol] 218 mg/dL High <200 [facility] Comment on above: Order Comment: FASTI NG:YES FASTING: YES Performed By: #### 7 600, 89398 #### [facility] [place] [address] [employer] Worker: Valente Blanco MD Cholesterol in HDL [Mass/Vol] 63 mg/dL Normal > OR = 50 [facility] Comment on above: Order Comment: FASTI NG:YES FASTING: YES Performed By: #### 7 600, 03170 #### [facility] [place] [address] [employer] Worker: Valente Blanco MD Cholesterol in LDL [Mass/Vol] 133 mg/dL High [facility] Comment on above: Order Comment: FASTI NG:YES FASTING: YES Result Comment: Refe rence range: <100 Desirable range <100 mg/dL for primary prevention; <70 mg/dL for patients with CHD or diabetic patients with > or = 2 CHD risk factors. LDL-C is now calculated using the Analisa calculation, which is a validated novel method providing better accuracy than the Friedewald equation in the estimation of LDL-C. Boris RAMOS et al. ANGEL LUIS. 2013;310(19): 0600-2458 (http://education.[employer].YEDInstitute/faq/SRN428) Performed By: #### 7 600, 53896 #### [place] [address] [employer] Worker: Valente Blanco MD Cholesterol.total/Chol esterol in HDL [Mass ratio] 3.5 {ratio} Normal <5.0 [facility] Comment on above: Order Comment: FASTI NG:YES FASTING: YES Performed By: #### 7 600, 35729 #### [facility] [address], [address] [place] [address] [employer] Co[employer] Worker: Valente Blanco MD NON HDL CHOLESTEROL 155 mg/dL (calc) High <130 [facility] Comment on above: Order Comment: FASTI NG:YES FASTING: YES Result Comment: For patients with diabetes plus 1 major ASCVD risk factor, treating to a non-HDL-C goal of <100 mg/dL (LDL-C of <70 mg/dL) is considered a therapeutic option. Performed By: #### 7 600, 17765 #### [facility] [place] [address] [employer] Worker: Valente Blanco MD Triglyceride [Mass/Vol] 114 mg/dL Normal <150 [facility] Comment on above: Order Comment: FASTI NG:YES FASTING: YES Performed By: #### 7 600, 55139 #### [facility] [place] [address] [employer] Worker: Valente Blanco MD [facility] 06-28-2021 Albumin [Mass/Vol] 4.1 g/dL Normal 3.6-5.1 [facility] Comment on above: Performed By: #### 1 0231, 7520 #### [facility] [place] [address] [employer] Worker: Valente Blanco MD Albumin/Globulin [Mass ratio] 1.6 {ratio} Normal 1.0-2.5 [facility] Comment on above: Performed By: #### 1 0231, 7600 #### [facility] [place] [address] [employer] Worker: Valente Blanco MD ALP [Catalytic activity/Vol] 109 U/L Normal 37-153 [facility] Comment on above: Performed By: #### 1 0231, 7600 #### [facility] of [address], [address] [place] [address] [employer] Worker: Valente Blanco MD ALT [Catalytic activity/Vol] 19 U/L Normal 6-29 [facility] Comment on above: Performed By: #### 1 0231, 7600 #### [facility] of [address], [address] [place] [address] [employer] Worker: Valente Blanco MD AST [Catalytic activity/Vol] 18 U/L Normal 10-35 [facility] Comment on above: Performed By: #### 1 0231, 7600 #### [facility] of [place] [address] [employer] Worker: Valente Blanco MD Bilirubin [Mass/Vol] 0.5 mg/dL Normal 0.2-1.2 [facility] Comment on above: Performed By: #### 1 023, 7600 #### [facility] of [address], [address] [place] [address] [employer] Worker: Valente Blanco MD BUN/CREATININE RATIO NOT APPLICABLE Normal 6-22 [facility] Comment on above: Performed By: #### 1 0231, 7600 #### [facility] of [address], [address] [place] [address] [employer]ating Worker: Valente Blanco MD Calcium [Mass/Vol] 9.2 mg/dL Normal 8.6-10.4 [facility] Comment on above: Performed By: #### 1 0231, 7600 #### [facility] of [address], [address] [place] [address] [employer] Worker: Valente Blanco MD Chloride [Moles/Vol] 106 mmol/L Normal 98-110 [facility] Comment on above: Performed By: #### 1 0231, 7600 #### [facility] of [address], [address] [place] [address] Pain[employer] Coating Worker: Valente Blanco MD CO2 [Moles/Vol] 31 mmol/L Normal 20-32 [facility] Comment on above: Performed By: #### 1 0231, 7600 #### [facility] [address], [address] [place] [address] [employer] Coating Worker: Valente Blanco MD Creatinine [Mass/Vol] 0.73 mg/dL Normal 0.50-0.99 [facility] Comment on above: Result Comment: For patients >49 years of age, the reference limit for Creatinine is approximately 13% higher for people identified as -[place] Korean. Performed By: #### 1 023, 7600 #### [facility] [address], [address] [place] [address] [employer] And Coating Worker: Valente Blanco MD eGFR NON-AFR. BELGIAN 86 mL/min/1.73m2 Normal > OR = 60 [facility] Comment on above: Performed By: #### 1 023, 7600 #### [facility] [address], [address] [place] [address] [employer] Coating Worker: Valente Blanco MD GFR/1.73 sq M.predicted among blacks MDRD (S/P/Bld) [Vol rate/Area] 100 mL/min/{1.73_m2} Normal > OR = 60 [facility] Comment on above: Performed By: #### 1 023, 7600 #### [facility] [address], [address] [place] [address] Pain[employer] And Coating Worker: Valente Blanco MD Globulin (S) [Mass/Vol] 2.5 g/dL Normal 1.9-3.7 [facility] Comment on above: Performed By: #### 1 023, 7600 #### [facility] of [address], [address] [place] [address] [employer] Coating Worker: Valente Blanco MD Glucose [Mass/Vol] 84 mg/dL Normal 65-99 [facility] Comment on above: Result Comment: Fasting reference interval Performed By: #### 1 0231, 7600 #### [facility] [address], [address] [place] [address] Pain[employer] And Coating Worker: Valente Blanco MD Potassium [Moles/Vol] 3.9 mmol/L Normal 3.5-5.3 [facility] Comment on above: Performed By: #### 1 0231, 7600 #### [facility] of [address], [address] [place] [address] Pain[employer] And Coating Worker: Valente Blanco MD Protein [Mass/Vol] 6.6 g/dL Normal 6.1-8.1 [facility] Comment on above: Performed By: #### 1 023, 7600 #### [facility] of [address], [address] [place] [address] Pain[employer] Coating Worker: Valente Blanco MD Sodium [Moles/Vol] 141 mmol/L Normal 135-146 [facility] Comment on above: Performed By: #### 1 023, 7600 #### [facility] of [address], [address] [place] [address] Pain[employer] And Coating Worker: Valente Blanco MD Urea nitrogen [Mass/Vol] 24 mg/dL Normal 7-25 [facility] Comment on above: Performed By: #### 1 023, 7600 #### [facility] of [address], [address] [place] [address] Pain[employer] Coating Worker: Valente Blanco MD LIPID PANEL, [facility] 11-0 Cholesterol [Mass/Vol] 192 mg/dL Normal <200 [facility] Comment on above: Order Comment: FASTI NG:YES FASTING: YES Performed By: #### 1 023, 7600 #### [facility] of [address], [address] [place] [address] Painting And Coating Worker: Valente Blanco MD Cholesterol in HDL [Mass/Vol] 62 mg/dL Normal > OR = 50 [facility] Comment on above: Order Comment: FASTI NG:YES FASTING: YES Performed By: #### 1 023, 7600 #### [facility] of [address], [address] [place] [address] Painting And Coating Worker: Valente Blanco MD Cholesterol in LDL [Mass/Vol] 109 mg/dL High [facility] Comment on above: Order Comment: FASTI NG:YES FASTING: YES Result Comment: Refe rence range: <100 Desirable range <100 mg/dL for primary prevention; <70 mg/dL for patients with CHD or diabetic patients with > or = 2 CHD risk factors. LDL-C is now calculated using the Analisa calculation, which is a validated novel method providing better accuracy than the Friedewald equation in the estimation of LDL-C. Boris SS et al. ANGEL LUIS. 2013;310(58): 5298-9586 (http://education.[employer]/faq/MBC089) Performed By: #### 1 0231, 7600 #### [facility] [address], [address] [place] [address] [employer] And Coating Worker: Valente Blanco MD Cholesterol.total/Chol esterol in HDL [Mass ratio] 3.1 {ratio} Normal <5.0 [facility] Comment on above: Order Comment: FASTI NG:YES FASTING: YES Performed By: #### 1 023, 7600 #### [facility] [address], [address] [place] [address] [employer] Coating Worker: Valente Blanco MD NON HDL CHOLESTEROL 130 mg/dL (calc) High <130 [facility] Comment on above: Order Comment: FASTI NG:YES FASTING: YES Result Comment: For patients with diabetes plus 1 major ASCVD risk factor, treating to a non-HDL-C goal of <100 mg/dL (LDL-C of <70 mg/dL) is considered a therapeutic option. Performed By: #### 1 023, 7600 #### [facility] [address], [address] [place] [address] [employer] And Coating Worker: Valente Blanco MD Triglyceride [Mass/Vol] 99 mg/dL Normal <150 [facility] Comment on above: Order Comment: FASTI NG:YES FASTING: YES Performed By: #### 1 023, 7600 #### [facility] [address], [address] [place] [address] [employer] Coating Worker: Valente Blanco MD BASIC METABOLIC PANELon 02-23 BUN/CREATININE RATIO NOT APPLICABLE Normal 6- [facility] Comment on above: Order Comment: FASTI NG:YES FASTING: YES Performed By: #### 6 399, 90588 #### [facility] [address], [address] [place] [address] Pain[employer] And Coating Worker: Valente Blanco MD Calcium [Mass/Vol] 9.3 mg/dL Normal 8.6-10.4 [facility] Comment on above: Order Comment: FASTI NG:YES FASTING: YES Performed By: #### 6 399, 16135 #### [facility] [address], [address] [place] [address] Pain[employer] And Coating Worker: Valente Blanco MD Chloride [Moles/Vol] 105 mmol/L Normal 98-110 [facility] Comment on above: Order Comment: FASTI NG:YES FASTING: YES Performed By: #### 6 399, 76756 #### [facility] [address], [address] [place] [address] Painting And Coating Worker: Valente Blanco MD CO2 [Moles/Vol] 29 mmol/L Normal 20-32 [facility] Comment on above: Order Comment: FASTI NG:YES FASTING: YES Performed By: #### 6 399, 77631 #### [facility] [address], [address] [place] [address] Painting And Coating Worker: Valente Blanco MD Creatinine [Mass/Vol] 0.68 mg/dL Normal 0.50-0.99 [facility] Comment on above: Order Comment: FASTI NG:YES FASTING: YES Result Comment: For patients >49 years of age, the reference limit for Creatinine is approximately 13% higher for people identified as -[place] Korean. Performed By: #### 6 399, 40331 #### [facility] [address], [address] [place] [address] [employer] And Coating Worker: Valente Blanco MD eGFR NON-AFR. BELGIAN 92 mL/min/1.73m2 Normal > OR = 60 [facility] Comment on above: Order Comment: FASTI NG:YES FASTING: YES Performed By: #### 6 399, 71952 #### [facility] [place] [address] [employer] Worker: Valente Blanco MD GFR/1.73 sq M.predicted among blacks MDRD (S/P/Bld) [Vol rate/Area] 106 mL/min/{1.73_m2} Normal > OR = 60 [facility] Comment on above: Order Comment: FASTI NG:YES FASTING: YES Performed By: #### 6 399, 27533 #### [facility] [place] [address] [employer] And Coating Worker: Valente Blanco MD Glucose [Mass/Vol] 84 mg/dL Normal 65-99 [facility] Comment on above: Order Comment: FASTI NG:YES FASTING: YES Result Comment: Fasting reference interval Performed By: #### 6 399, 02543 #### [facility] [place] [address] Painting And Coating Worker: Valente Blanco MD Potassium [Moles/Vol] 4.0 mmol/L Normal 3.5-5.3 [facility] [employer] [facility] Comment on above: Order Comment: FASTI NG:YES FASTING: YES Performed By: #### 6 399, 13465 #### [facility] [place] [address] [employer] And Coating Worker: Valente Blanco MD Sodium [Moles/Vol] 142 mmol/L Normal 135-146 [facility] Comment on above: Order Comment: FASTI NG:YES FASTING: YES Performed By: #### 6 399, 82589 #### [facility] [place] [address] Painting And Coating Worker: Valente Blanco MD Urea nitrogen [Mass/Vol] 18 mg/dL Normal 7-25 [facility] Comment on above: Order Comment: FASTI NG:YES FASTING: YES Performed By: #### 6 399, 65035 #### [facility] [place] [address] [employer] And Coating Worker: Valente Blanco MD CBC (INCLUDES DIFF/PLT)on Basophils (Bld) [#/Vol] 0.04 10*3/uL Normal 0-200 [facility] Comment on above: Performed By: #### 6 399, 31568 #### [facility] of [place] [address] [employer] Co[employer] Worker: Valente Blanco MD Basophils/100 WBC (Bld) 0.9 % Normal [facility] Comment on above: Performed By: #### 6 399, 32726 #### [facility] of [place] [address] [employer] Coating Worker: Valente Blanco MD Eosinophils (Bld) [#/Vol] 0.11 10*3/uL Normal 15-500 [facility] Comment on above: Performed By: #### 6 399, 16876 #### [facility] of [place] [address] [employer] And Coating Worker: Valente Blanco MD Eosinophils/100 WBC (Bld) 2.5 % Normal [facility] Comment on above: Performed By: #### 6 399, 28060 #### [facility] of [place] [address] [employer] And Coating Worker: Valente Blanco MD Erythrocyte distribution width (RBC) [Ratio] 12.3 % Normal 11.0-15.0 [facility] Comment on above: Performed By: #### 6 399, 90579 #### [facility] [place] [address] [employer] And Coating Worker: Valente Blanco MD Hematocrit (Bld) [Volume fraction] 34.1 % Low 35.0-45.0 [facility] Comment on above: Performed By: #### 6 399, 50031 #### [facility] [place] [address] [employer] Co[employer] Worker: Valente Blanco MD Hemoglobin (Bld) [Mass/Vol] 11.2 g/dL Low 11.7-15.5 [facility] Comment on above: Performed By: #### 6 399, 29906 #### [facility] [place] [address] [employer] Co[employer] Worker: Valente Blanco MD Lymphocytes (Bld) [#/Vol] 1.448 10*3/uL Normal 850-3900 [facility] Comment on above: Performed By: #### 6 399, 60733 #### [facility] of [place] [address] [employer]ting And Coating Worker: Valente Blanco MD Lymphocytes/100 WBC (Bld) 32.9 % Normal [facility] Comment on above: Performed By: #### 6 399, 36882 #### [facility] [place] [address] [employer] And Coating Worker: Valente Blanco MD MCH (RBC) [Entitic mass] 30.0 pg Normal 27.0-33.0 [facility] Comment on above: Performed By: #### 6 399, 35979 #### [facility] of [place] [address] [employer] Coating Worker: Valente Blanco MD MCHC (RBC) [Mass/Vol] 32.8 g/dL Normal 32.0-36.[address] [facility] Comment on above: Performed By: #### 6 399, [id number] #### [facility] [place] [address] [employer] Worker: Valente Blanco MD MCV (RBC) [Entitic vol] 91.4 fL Normal 80.0-100.0 [facility] Comment on above: Performed By: #### 6 399, [id number] #### [facility] [place] [address] [employer] Worker: Valente Blanco MD Monocytes (Bld) [#/Vol] 0.638 10*3/uL Normal 200-950 [facility] Comment on above: Performed By: #### 6 399, [id number] #### [facility] [place] [address] [employer] Worker: Valente Blanco MD Monocytes/100 WBC (Bld) 14.5 % Normal [facility] Comment on above: Performed By: #### 6 399, [id number] #### [facility] of [address], [address] [place] [address] Pain[employer] And Coating Worker: Valente Blanco MD Neutrophils (Bld) [#/Vol] 2.165 10*3/uL Normal 4501-1524 [facility] Comment on above: Performed By: #### 6 399, [id number] #### [facility] [address], [address] [place] [address] Painting And Coating Worker: Valente Blanco MD Neutrophils/100 WBC (Bld) 49.2 % Normal [facility] Comment on above: Performed By: #### 6 399, [id number] #### [facility] [place] [address] [employer] Worker: Valente Blanco MD Platelet mean volume (Bld) [Entitic vol] 9.0 fL Normal 7.5-12.5 [facility] Comment on above: Performed By: #### 6 399, [id number] #### [facility] [address], [address] [place] [address] Painting And Coating Worker: Valente Blanco MD Platelets (Bld) [#/Vol] 307 10*3/uL Normal 140-400 [facility] Comment on above: Performed By: #### 6 399, 93240 #### [facility] [place] [address] [employer] Worker: Valente Blanco MD RBC (Bld) [#/Vol] 3.73 10*6/uL Low 3.80-5.10 [facility] Comment on above: Performed By: #### 6 399, 86975 #### [facility] [place] [address] [employer] Worker: Valente Blanco MD WBC (Bld) [#/Vol] 4.4 10*3/uL Normal 3.8-10.8 [facility] Comment on above: Performed By: #### 6 399, 65082 #### [facility] [address] [place] [address] Painting And Coating Worker: Valente Balnco MD Vital Signs Date Time Vital Sign Value Performing Clinician Facility 12-09-2024 08:20-0400 Body height 162.6 cm Eleni Yinaherminior TILE CLASSIFIER Work Phone: [facility] 12-09-2024 08:20-0400 Body mass index (BMI) [Ratio] 25.75 kg/m2 Eleni Yinamor TILE CLASSIFIER Work Phone: [facility] 12-09-2024 08:20-0400 Body weight 68.04 kg Eleni Yinamor TILE CLASSIFIER Work Phone: [facility] 12-09-2024 08:20-0400 Diastolic blood pressure 77 mm[Hg] Eleni Yinamor TILE CLASSIFIER Work Phone: [facility] 12-09-2024 08:20-0400 Heart rate 69 /min Eleni Yinamor TILE CLASSIFIER Work Phone: [facility] 12-09-2024 08:20-0400 Systolic blood pressure 124 mm[Hg] Eleni Yinamor TILE CLASSIFIER Work Phone: [facility] 10-05-2024 10:56-0500 Diastolic blood pressure 75 mm[Hg] Gallo Lundberg PA Work Phone: [facility] 10-05-2024 10:56-0500 Heart rate 72 /min Gallo Lundberg PA Work Phone: [facility] 10-05-2024 10:56-0500 Respiratory rate 20 /min Gallo Lundberg PA Work Phone: [facility] 10-05-2024 10:56-0500 Systolic blood pressure 100 mm[Hg] Gallo Lundberg PA Work Phone: [facility] 08-26-2024 08:27-0500 Body height 162.6 cm Gallo Lundberg PA Work Phone: [facility] 08-26-2024 08:27-0500 Body mass index (BMI) [Ratio] 25.06 kg/m2 Gallo Lundberg PA Work Phone: [facility] 08-26-2024 08:27-0500 Body weight 66.22 kg Gallo Lundberg PA Work Phone: [facility] 08-26-2024 08:27-0500 Diastolic blood pressure 78 mm[Hg] Gallo Gastelumumesh PA Work Phone: [facility] 08-26-2024 08:27-0500 Heart rate 66 /min Gallo Gastelumumesh PA Work Phone: [facility] 08-26-2024 08:27-0500 Respiratory rate 18 /min Gallo Gastelumumesh PA Work Phone: [facility] 08-26-2024 08:27-0500 SaO2% (BldA) [Mass fraction] 96 % Gallo Gastelumumesh PA Work Phone: [facility] 08-26-2024 08:27-0500 Systolic blood pressure 104 mm[Hg] Gallo Gastelumumesh PA Work Phone: [facility] 08-11-2024 12:29-0500 Body height 162.6 cm Eleni Philipr TILE CLASSIFIER Work Phone: [facility] 08-11-2024 12:29-0500 Body mass index (BMI) [Ratio] 25.23 kg/m2 Eleni Yinamor TILE CLASSIFIER Work Phone: [facility] 08-11-2024 12:29-0500 Body weight 66.68 kg Eleni Yinamor TILE CLASSIFIER Work Phone: [facility] 08-11-2024 12:29-0500 Diastolic blood pressure 84 mm[Hg] Eleni Yinamor TILE CLASSIFIER Work Phone: [facility] 08-11-2024 12:29-0500 Heart rate 64 /min Eleni Yinamor TILE CLASSIFIER Work Phone: [facility] 08-11-2024 12:29-0500 Systolic blood pressure 128 mm[Hg] Eleni Branmor TILE CLASSIFIER Work Phone: [facility] 06-14-2024 12:59-0400 Body mass index (BMI) [Ratio] 25.23 kg/m2 Isael Panchal MD Work Phone: [facility] 06-14-2024 12:59-0400 Body weight 66.68 kg Isael Panchal MD Work Phone: [facility] 06-14-2024 12:59-0400 Diastolic blood pressure 80 mm[Hg] Isael Panchal MD Work Phone: [facility] 06-14-2024 12:59-0400 Systolic blood pressure 124 mm[Hg] Isael Panchal MD Work Phone: [facility] 05-19-2024 10:21-0400 Body height 162.6 cm Eleni Yinamor TILE CLASSIFIER Work Phone: [facility] 05-19-2024 10:21-0400 Body mass index (BMI) [Ratio] 25.06 kg/m2 Eleni Yinamor TILE CLASSIFIER Work Phone: [facility] 05-19-2024 10:21-0400 Body weight 66.22 kg Eleni Gillmor TILE CLASSIFIER Work Phone: [facility] 05-19-2024 10:21-0400 Diastolic blood pressure 84 mm[Hg] Eleni Gillmor TILE CLASSIFIER Work Phone: [facility] 05-19-2024 10:21-0400 Heart rate 77 /min Eleni Yinamor TILE CLASSIFIER Work Phone: [facility] 05-19-2024 10:21-0400 SaO2% (BldA) [Mass fraction] 97 % Eleni Gillmor TILE CLASSIFIER Work Phone: [facility] 05-19-2024 10:21-0400 Systolic blood pressure 132 mm[Hg] Eleni Gillmor TILE CLASSIFIER Work Phone: [facility] 03-03-2024 09:30-0400 Body height 162.56 cm [facility] 03-03-2024 09:30-0400 Body mass index (BMI) [Ratio] 25.6 kg/m2 [facility] 03-03-2024 09:30-0400 Body temperature 96.2 [degF] [facility] 03-03-2024 09:30-0400 Body weight 67.81 kg [facility] 03-03-2024 09:30-0400 Diastolic blood pressure 70 mm[Hg] [facility] 03-03-2024 09:30-0400 Heart rate 67 /min [facility] 03-03-2024 09:30-0400 Respiratory rate 16 /min [facility] 03-03-2024 09:30-0400 SaO2% (BldA) [Mass fraction] 96 % [facility] 03-03-2024 09:30-0400 Systolic blood pressure 101 mm[Hg] [facility] 03-21-2023 08:47-0400 Body height 164 cm Keysha Heinzinger DO Work Phone: [facility] 03-21-2023 08:47-0400 Body weight 64.86 kg Keysha Heinzinger DO Work Phone: [facility] 03-21-2023 08:47-0400 Diastolic blood pressure 80 mm[Hg] Keysha Heinzinger DO Work Phone: [facility] 03-21-2023 08:47-0400 Heart rate 64 /min Keysha Heinzinger DO Work Phone: [facility] 03-21-2023 08:47-0400 SaO2% (BldA) [Mass fraction] 97 % Keysha Heinzinger DO Work Phone: [facility] 03-21-2023 08:47-0400 Systolic blood pressure 117 mm[Hg] Keysha Heinzinger DO Work Phone: [facility] 10-23-2022 15:00-0500 Body height 162.56 cm Nino Carmona Other [employer] Other 10-23-2022 15:00-0500 Body mass index (BMI) [Ratio] 23.51 kg/m2 Nino Mathew Other [employer] Other 10-23-2022 15:00-0500 Body temperature 99.1 [degF] Nino Carmona Other [employer] Other 10-23-2022 15:00-0500 Body weight 62.14 kg Nino Mathew Other [employer] Other 10-23-2022 15:00-0500 Diastolic blood pressure 72 mm[Hg] Nino Mathew Other [employer] Other 10-23-2022 15:00-0500 SaO2% (BldA) [Mass fraction] 97 % Nino Mathew Other [employer] Other 10-23-2022 15:00-0500 Systolic blood pressure 115 mm[Hg] Nino Carmona Other [employer] Other 05-09-2022 10:15-0400 Body height 162.56 cm Cory Liberty II Other [employer] Other 05-09-2022 10:15-0400 Body mass index (BMI) [Ratio] 24.71 kg/m2 Cory Liberty II Other [employer] Other 05-09-2022 10:15-0400 Body weight 65.32 kg Cory Kirill II Other [employer] Other 01-17-2022 11:00-0400 Body height 162.56 cm Cory Kirill II Other [employer] Other 01-17-2022 11:00-0400 Body mass index (BMI) [Ratio] 24.03 kg/m2 Cory Roy II Other [employer] Other 01-17-2022 11:00-0400 Body weight 63.5 kg Cory Roy II Other [employer] Other Encounters Encounter Date Encounter Type Care Provider Facility Start: 01-10-2025 End: 01-10-2025 ambulatory RADHA ZELAYA Facility:[facility] Comment on above: Closed displaced fra cture of nasal bone, sequela (Primary Dx); Refractory obstruction of nasal airway; Incompetent nasal valve; Deviated nasal septum; Sialolith Start: 01-10-2025 End: 01-10-2025 Telemedicine consultation with patient Radha Zelaya MD Work Phone: [facility] Start: 01-01-2025 End: 01-01-2025 Refill [facility]fe [facility] Comment on above: Essential hypertensi on Start: 12-09-2024 End: 12-09-2024 Bamboo flowsheet Eleni Hanson TILE CLASSIFIER Work Phone: [facility] Start: 12-09-2024 End: 12-09-2024 Bamboo flowsheet Eleni Hanson TILE CLASSIFIER Work Phone: [facility] Start: 12-09-2024 End: 12-09-2024 Office outpatient visit 15 minutes Eleni Hanson TILE CLASSIFIER Work Phone: [facility] Comment on above: Periodic limb moveme nt (Primary Dx); Migraine without aura and without status migrainosus, not intractable (CMS/HCC); Foot drop, right; PLMD (periodic limb movement disorder) Start: 12-09-2024 End: 12-09-2024 ambulatory ELENI HANSON Not Available Start: 11-25-2024 ambulatory RADHA ZELAYA Facility :[facility] Start: 11-25-2024 End: 11-25-2024 Subsequent hospital visit by physician Janel [facility] ([facility]) Work Phone: [facility] Radiology CT Scan Comment on above: 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, subsequent encounter [S02.2XXK] Start: 11-23-2024 End: 11-23-2024 Refill Dewey Wolfe DO Work Phone: [facility] Comment on above: Herpes simplex type 1 infection Start: 11-15-2024 End: 11-15-2024 ambulatory RADHA ZELAYA Facility:[facility] Start: 11-15-2024 End: 11-15-2024 Office outpatient new 45 minutes Radha Zelaya MD Work Phone: [facility]astics/Reconstructio n Comment on above: Closed displaced fra cture of nasal bone, sequela (Primary Dx); Facial pain; Hypertrophy of inferior nasal turbinate; 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, subsequent encounter Start: 10-30-2024 End: 10-30-2024 Refill Dewey Wolfe DO Work Phone: [facility] Comment on above: Essential hypertensi on Start: 10-29-2024 End: 11-02-2024 Refill Eleni Hanson NP Work Phone: [facility] Comment on above: Daytime hypersomnole nce Start: 10-05-2024 End: 10-05-2024 Office outpatient visit 15 minutes Gallo STACY Work Phone: [facility] Comment on above: Disorder of sacrum ( Primary Dx) Start: 10-05-2024 End: 10-05-2024 ambulatory GALLOTAMARA LUNDBERG [facility] Start: 09-27-2024 End: 09-28-2024 Refill Eleni Hanson NP Work Phone: [facility] Comment on above: Cervicalgia; Daytime hypersomnolence; PLMD (periodic limb movement disorder) Start: 09-03-2024 End: 09-03-2024 ambulatory STEPHON CONTRERAS [facility] Start: 08-26-2024 End: 08-26-2024 Office outpatient visit 15 minutes Gallotamara Lundberg PA Work Phone: [facility] Comment on above: Spinal stenosis of l umbar region with neurogenic claudication (Primary Dx) Start: 08-26-2024 End: 08-26-2024 ambulatory GALLO LUNDBERG [facility] Start: 08-19-2024 End: 08-19-2024 Refill Dewey Wolfe DO Work Phone: [facility] Comment on above: Essential hypertensi on Start: 08-16-2024 End: 08-16-2024 Refill Dewey Wolfe DO Work Phone: [facility] Comment on above: Essential hypertensi on Daytime hypersomnole nce Start: 08-11-2024 End: 08-11-2024 Bamboo flowsheet Eleni Hanson TILE CLASSIFIER [facility] [address] Start: 08-11-2024 End: 08-11-2024 Bamboo flowsheet Eleni Hanson TILE CLASSIFIER Work Phone: [employer] [facility] Start: 08-11-2024 End: 08-11-2024 Office outpatient visit 15 minutes Eleni Hanson TILE CLASSIFIER Work Phone: [employer] [facility] Comment on above: Periodic limb moveme nt (Primary Dx); Migraine without aura and without status migrainosus, not intractable (CMS/HCC); Depression, unspecified depression type (CMS/HCC); Restless legs syndrome (RLS); Anesthesia of skin; Obstructive sleep apnea Start: 08-11-2024 End: 08-11-2024 ambulatory ELENI HANSON Not Available Start: 08-04-2024 End: 08-04-2024 ambulatory [facility] Start: 08-04-2024 End: 08-04-2024 ambulatory [facility] Start: 07-29-2024 End: 07-29-2024 Refill Eleni Hanson TILE CLASSIFIER Work Phone: [facility] [address] Comment on above: PLMD (periodic limb movement disorder) Start: 07-19-2024 End: 07-19-2024 Refill Eleni Hanson TILE CLASSIFIER Work Phone: [facility] [address] Comment on above: Daytime hypersomnole nce Start: 06-21-2024 End: 06-21-2024 Refill Eleni Hanson TILE CLASSIFIER Work Phone: [facility] [address] Comment on above: Daytime hypersomnole nce Start: 06-14-2024 End: 06-14-2024 Bamboo flowsheet Isael Panchal MD Work Phone: [facility] Start: 06-14-2024 End: 06-14-2024 Bamboo flowsheet Isael Panchal MD Work Phone: [facility] Start: 06-14-2024 End: 06-17-2024 Orders Only Isael Panchal MD Work Phone: [facility] External Department Unsolicited Start: 06-14-2024 End: 06-14-2024 Office outpatient new 45 minutes Isael Panchal MD Work Phone: [facility] Comment on above: Postmenopausal atrop hic vaginitis (Primary Dx); Dyspareunia in female; Cystocele, midline; Cervical cancer screening; Other screening mammogram Start: 06-14-2024 End: 06-14-2024 ambulatory ISAEL PANCHAL Not Available Start: 06-03-2024 End: 06-03-2024 ambulatory GALLO Romero TOÑO [facility] Start: 05-21-2024 End: 05-21-2024 ambulatory STEPHON CONTRERAS [facility] Start: 05-19-2024 End: 05-19-2024 Bamboo flowsheet Eleni Hanson TILE CLASSIFIER Work Phone: [facility] [address] Start: 05-19-2024 End: 05-19-2024 Bamboo flowsheet Eleni Hanson TILE CLASSIFIER Work Phone: [facility] [address] Start: 05-19-2024 End: 05-20-2024 Refill Eleni Hanson TILE CLASSIFIER Work Phone: [facility] [address] [facility] Comment on above: Cervicalgia; PLMD (periodic limb movement disorder); Daytime hypersomnolence Start: 05-19-2024 End: 05-19-2024 Office outpatient visit 15 minutes Eleni Hanson TILE CLASSIFIER Work Phone: [facility] [address] [facility] Comment on above: Periodic limb moveme nt (Primary Dx); Migraine without aura and without status migrainosus, not intractable ([facility]) Start: 05-19-2024 End: 05-19-2024 ambulatory ELENI HANSON Not Available Start: 04-19-2024 End: 04-19-2024 Refill Eleni Hanson TILE CLASSIFIER Work Phone: [facility] [address] [facility] Comment on above: PLMD (periodic limb movement disorder); Daytime hypersomnolence Start: 04-15-2024 End: 04-15-2024 ambulatory GALLO [facility] Start: 04-12-2024 End: 04-12-2024 ambulatory [facility] Start: 04-08-2024 End: 04-08-2024 ambulatory [facility] Start: 04-06-2024 End: 04-06-2024 ambulatory [facility] Start: 03-29-2024 End: 03-29-2024 ambulatory RICH [facility] Start: 03-24-2024 End: 03-24-2024 ambulatory [facility] Start: 03-03-2024 End: 03-03-2024 ambulatory [facility] Work Phone: Start: 03-03-2024 End: 03-03-2024 Patient encounter procedure [facility] [place] Work Phone: Start: 02-03-2024 End: 02-03-2024 ambulatory [facility] Start: 02-03-2024 End: 02-03-2024 ambulatory [facility] Start: 02-02-2024 End: 02-02-2024 ambulatory ELENI HANSON Not Available Start: 08-26-2023 End: 08-26-2023 ambulatory [facility] Start: 05-16-2023 End: 05-16-2023 ambulatory Keysha Henry DO Work Phone: Neurology Comment on above: Obstructive sleep ap mia (Primary Dx); Excessive daytime sleepiness; Hypersomnia Sleep study Start: 05-16-2023 E-mail encounter fro m caregiver Keysha Henry DO Work Phone: [facility] Start: 05-16-2023 End: 05-16-2023 Telemedicine consultation with patient Keysha Henry DO Work Phone: [facility] Start: 04-02-2023 Chart abstracting [facility] Work Phone: Neurology Start: 03-21-2023 Telephone encounter [facility] Work Phone: Neurology Comment on above: PAP Therapy Follow U p Start: 03-21-2023 End: 03-21-2023 Patient encounter procedure Keysha Henry DO Work Phone: Neurology Comment on above: Excessive daytime sl eepiness (Primary Dx); Snoring; JOSE ANGEL (obstructive sleep apnea) Start: 12-25-2022 End: 12-26-[address] NINO BRADSHAW Facility:[facility] Start: 11-28-2022 End: 11-29-[address] DEWEY WOLFE Facility:[facility] Start: 11-07-2022 End: 11-08-[address] NINO BRADSHAW Facility:[facility] Start: 10-23-2022 End: 10-23-2022 ambulatory Dewey Wolfe Facility:[facility] Start: 10-23-2022 End: 10-23-2022 Patient encounter procedure DO Dewey Wolfe Work Phone: [facility] Work Phone: Start: 10-23-2022 End: 10-23-2022 ambulatory DO Dewey Wolfe Work Phone: [facility] Work Phone: Start: 10-23-2022 Office outpatient ne w 60 minutes Nino Carmona [facility] Start: 10-15-2022 End: 10-16-2022 ambulatory BULL SHAIKH Facility:[facility] Start: 06-18-2022 End: 06-18-2022 ambulatory Cory Liberty II Other [employer] Other Start: 06-18-2022 Telephone encounter Cory Liberty II [facility] Start: 05-09-2022 End: 05-09-2022 ambulatory Cory Liberty II Other [employer] Other Start: 05-09-2022 Office outpatient vi sit 25 minutes Cory Liberty II [facility] Start: 01-17-2022 Office outpatient ne w 45 minutes Cory Kirill II [facility] Start: 01-17-2022 End: 01-17-2022 ambulatory Cory M Liberty II [employer] Other Procedures Date Procedure Procedure Detail Performing Clinician Start: 08-04-2024 Adult depression scr eening assessment Dewey Wolfe DO Work Phone: Start: 06-14-2024 Cytp c/v auto thin l yr prepj scr mnl rescr phys Isael Panchal MD Work Phone: Start: 03-03-2024 Quick Strep (POC) Start: 02-03-2024 Lipid 1996 panel - S vikash or Plasma Radha Zelaya MD Work Phone: Start: 04-24-2023 Mammography Eleni jeronimo TILE CLASSIFIER Work Phone: Start: 01-09-2023 Lipid 1996 panel - S vikash or Plasma Keysha Heinzinger DO Work Phone: Plan of Treatment Date Care Activity Detail Author Start: 08-26-2033 DTaP,Tdap and Td Vaccines (3 - Td or Tdap) DTaP,Tdap and Td Vaccines (3 - Td or Tdap) [facility] Start: 08-26-2033 Urine microalbumin profile DTaP,Tdap,Td Vaccine (4 - Td or Tdap) [facility] Start: 02-02-2029 Lipid panel Lipid Screening [facility] Start: 01-24-2028 Screening for malign ant neoplasm of colon Colonoscopy [facility] Comment on above: Postponed from 11/30 (Not Indicated) Start: 01-10-2028 Lipid 1996 panel - S vikash or Plasma Lipid Screening [facility] Start: 01-10-2028 LIPID SCREEN LIPID SCREEN [facility] Start: 08-04-2027 Diabetes Screening Diabetes Screenin g [facility] Start: 10-05-2025 Tobacco Screening Tobacco Screening [facility] Start: 08-26-2025 Adult BMI Screening Adult BMI Screen ing [facility] Start: 08-26-2025 Tobacco Screening Tobacco Screening [facility] Start: 08-04-2025 Adult BMI Screening Adult BMI Screen ing [facility] Start: 08-04-2025 Depression Screening Depression Scre ening [facility] Start: 08-04-2025 Fall Risk Screening Fall Risk Screen ing [facility] Start: 08-04-2025 Tobacco Screening Tobacco Screening [facility] Start: 04-25-2025 End: 08-14-2025 DBT Breast - bilateral screening Bilateral screening mammogram with tomosynthesis Imaging Routine Other screening mammogram Expected: 04/25/2025, Expires: 08/14/2025 [facility] Comment on above: Expected: 04/25/2025 , Expires: 08/14/2025 Start: 04-25-2025 Influenza vaccination Influenza Vacc ine [facility] Start: 04-18-2025 End: 04-18-2025 Patient encounter procedure 04/18/2025 11:45 AM EDT Office Visit [facility]Reconstruction [address] [place] [address] Radha Zelaya MD [address] [place] [address] post op [facility] Comment on above: post op Start: 04-12-2025 End: 04-12-2025 Patient encounter procedure 04/12/2025 10:20 AM EDT Office Visit [facility] [address] [place] [address] [facility] Start: 04-12-2025 End: 04-12-2025 Admission to same day surgery center 04/12/2025 8:30 AM EDT - 04/12/2025 12:30 PM EDT Surgery [facility] Surgery [address] [place] [address] Radha Zelaya MD [address] [place] [address] REPAIR NASAL VESTIBULAR STENOSIS [facility] Comment on above: REPAIR NASAL VESTIBU LAR STENOSIS Start: 04-12-2025 End: 04-12-2025 Repair nasal vestibular stenosis REPAIR NASAL VESTIBULAR STENOSIS Closed displaced fracture of nasal bone, sequela 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 Deviated nasal septum Sialolith 04/12/2025 8:30 AM EDT AV OR Start: 04-12-2025 End: 04-12-2025 Septoplasty/submucous resecj w/wo cartilage grf SEPTOPLASTY Closed displaced fracture of nasal bone, sequela 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 Deviated nasal septum Sialolith 04/12/2025 8:30 AM EDT [facility] Start: 04-12-2025 End: 04-12-2025 Submucous rescj inferior turbinate prtl/compl RESECTION SUBMUCOSAL TURBINATES Closed displaced fracture of nasal bone, sequela 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 Deviated nasal septum Sialolith 04/12/2025 8:30 AM EDT AV [facility] Start: 04-12-2025 Subsequent hospital visit by physician 04/12/2025 8:30 AM EDT Hospital Encounter [facility] Surgery [address] [place] [address] Radha Zelaya MD [address] [place] [address] Closed displaced fracture of nasal bone, sequela [S02.2XXS], 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], 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], Deviated nasal septum [J34.2], Sialolith [K11.5] [facility] Surgery Comment on above: Closed displaced fra cture of nasal bone, sequela [S02.2XXS], 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], 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], Deviated nasal septum [J34.2], Sialolith [K11.5] Start: 04-08-2025 Medicare Annual Well ness Visit Medicare Annual Wellness Visit [facility] Start: 03-29-2025 End: 03-29-2025 Anesthesia consultation 03/29/2025 9:40 AM EDT PAT Pre Anesthesia [address] [place] [address] 2, Pacc [place] [address] [place] [address] pacc Pre Anesthesia Comment on above: pacc Start: 02-28-2025 End: 02-28-2025 Patient encounter procedure 02/28/2025 9:20 AM EDT Office Visit [place] [address] [phone] Eleni Hanson NP [address] [place] [address] JOSE ABDULLAHI Start: 12-09-2024 End: 12-09-2024 Patient encounter procedure 12/09/2024 8:20 AM EDT Office Visit JOSE ABDULLAHI [address] [place] [phone] Eleni Hanson NP [address] [place] [address] Arrived JOSE ABDULLAHI Comment on above: Arrived Start: 12-02-2024 Covid-19 Vaccine ( season) Covid-19 Vaccine ( season) [facility] Start: 11-25-2024 End: 11-25-2024 Patient encounter procedure 11/25/2024 6:30 PM EDT Appointment [facility] Radiology [facility] Scan [address] [place] [address] 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, subsequent encounter [S02.2XXK] [facility] Radiology CT Scan Comment on above: 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, subsequent encounter [S02.2XXK] Start: 09-10-2024 Subsequent hospital visit by physician 09/10/2024 Hospital Encounter [facility] - [facility] Procedures [address] [facility] [place] [place] [address] Stephon Contreras MD [address] [facility] [place] [place] [address] [facility] - [facility] Procedures Start: 09-01-2024 End: 09-01-2024 Patient encounter procedure 09/01/2024 11:15 AM EST Office Visit [facility] [address] [place] [address] [place] [id number] Isael Panchal MD [address] [place] [address] [facility] Start: 08-26-2024 End: 08-26-2024 Patient encounter procedure 08/26/2024 8:45 AM EST Office Visit [facility] [address] [facility] [place] [place] [address] Gallo Lundberg PA [address] [place] [address] [facility] Start: 08-25-2024 Advance Directive Discussion Advance Directive Discussion [facility] Start: 08-11-2024 End: 08-11-2024 Patient encounter procedure [facility] [place] [address] Comment on above: Arrived Start: 06-14-2024 End: 06-14-2024 Patient encounter procedure 06/14/2024 1:00 PM EDT Office Visit [facility] [address] [place] [address] Isael Panchal MD [address] [place] [address] Well woman exam with routine gynecological exam; Cervical cancer screening; Other screening mammogram [facility] Comment on above: Well woman exam with routine gynecological exam; Cervical cancer screening; Other screening mammogram Start: 05-19-2024 End: 05-19-2024 Patient encounter procedure 05/19/2024 10:20 AM EDT [facility] [address] [facility] [address] [place] [phone] Eleni Hanson NP [address] [place] [facility] Comment on above: Arrived Start: 05-05-2024 End: 05-05-2024 Patient encounter procedure 05/05/2024 10:40 AM EDT Office Visit [facility] [address] [facility] [address] [place] [phone] Eleni Hanson NP [address] [place] [facility] Start: 04-25-2024 Influenza vaccination Influenza Vacc ine (#1) [facility] Start: 04-24-2024 Mammography Mammogram Screening [facility] Start: 04-24-2024 Screening for malign ant neoplasm of breast [facility] Start: 04-25-2023 Influenza vaccination [facility] Start: 09-27-2022 COVID-19 VACCINE (5 - Pfizer series) COVID-19 VACCINE (5 - Pfizer series) [facility] Start: 08-25-2022 ADVANCE DIRECTIVE DISCUSSION ADVANCE DIRECTIVE DISCUSSION [facility] Start: 08-25-2022 DEPRESSION ASSESSMENT DEPRESSION ASS ESSMENT [facility] Start: 11-30-2020 BONE DENSITY BONE DENSITY [facility] Start: 11-30-2020 Bone Density Screening Bone Density Screening [facility] Start: 11-30-2020 Pneumococcal Vaccine : 65+ (1 - PCV) Pneumococcal Vaccine: 65+ (1 - PCV) [facility] Start: 11-30-2020 PNEUMOCOCCAL: 65+ (1 - PCV) PNEUMOCOCCAL: 65+ (1 - PCV) [facility] Start: 11-30-2005 SHINGRIX VACCINE (1 of 2) SHINGRIX VACCINE (1 of 2) [facility] Start: 11-30-2000 COLOGUARD (FIT-DNA) COLOGUARD (FIT-D NA) [facility] Start: 11-30-2000 Colonoscopy COLONOSCOPY [facility] Start: 11-30-2000 COLORECTAL CANCER SCREENING COLORECTAL CANCER SCREENING [facility] Start: 11-30-[address] COLONOGRAPHY [facility] Start: 11-30-2000 DIABETES SCREEN DIABETES SCREEN [facility] Start: 11-30-2000 Diabetes Screening Diabetes Screenin g [facility] Start: 11-30-2000 FECAL OCCULT BLOOD FECAL OCCULT BLOO D [facility] Start: 11-30-2000 Screening for malign ant neoplasm of colon [facility] Start: 11-30-2000 SIGMOIDOSCOPY SIGMOIDOSCOPY [facility] Start: 1995 Mammography MAMMOGRAM [facility] Start: 11-30-1974 Urine microalbumin profile [facility] Start: 11-30-1973 Adult BMI Follow Up Plan Adult BMI Follow Up Plan [facility] Start: 11-30-1973 Anxiety Screening Anxiety Screening [facility] Start: 11-30-1973 Depression Screening Depression Scre ening [facility] Start: 11-30-1973 HEPATITIS C SCREENING HEPATITIS C [facility] Start: 11-30-1973 Hepatitis C screening Hepatitis C [facility] Start: 1955 Screening for malign ant neoplasm of colon [facility] End: 12-15-2025 CT Facial bones WO contrast CT FACIAL BONE/ATUL WO IVCON Radiology Routine 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, subsequent encounter 1 Occurrences starting 11/15/2024 until 12/15/2025 [facility] Work Phone: Comment on above: 1 Occurrences starti ng 11/15/2024 until 12/15/2025 CT Facial bones WO contrast CT FACIAL BONE/ATUL WO IVCON Radiology Routine 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, subsequent encounter 11/25/2024 6:32 PM EDT [facility] Work Phone: End: 03-20-2024 HOME SLEEP APNEA TEST (HSAT) HOME SLEEP APNEA TEST (HSAT) Procedures Routine Excessive daytime sleepiness Snoring 1 Occurrences starting 03/21/2023 until 03/20/2024 [facility] Work Phone: Comment on above: 1 Occurrences starti ng 03/21/2023 until 03/20/2024 Inject si joint arthrgrphy&/anes/steroid w/abimael INJECTION BLOCK SACROILIAC JOINT Disorder of sacrum [facility] Njx dx/ther sbst intrlmnr lmbr/sac w/img gdn INJECTION BLOCK EPIDURAL CAUDAL STEROID Spinal stenosis of lumbar region with neurogenic claudication [facility] PAP IG, RFX HPV ALL P[place] PAP IG, RFX HPV [place] PTH [place] Lab Routine Cervical cancer screening Ordered: 06/14/2024 [facility] Work Phone: Comment on above: Ordered: 06/14/2024 [facility] Immunizations Immunization Date Immunization Notes Care Provider Ying cabrera 06-03-2024 influenza virus vaccine, unspecified formulation Dewey Wolfe DO Work Phone: [facility] 08-26-2023 tetanus toxoid, reduced diphtheria toxoid, and acellular pertussis vaccine, adsorbed Dewey Wolfe DO Work Phone: [facility] 05-29-2023 influenza virus vaccine, unspecified formulation Eleni Hanson TILE CLASSIFIER Work Phone: [facility] 07-31-2022 Influenza, High-dose , Quadrivalent Dewey Wolfe DO Work Phone: [facility] 07-31-2022 influenza virus vaccine, unspecified formulation Keysha Henry DO Work Phone: [facility] 06-07-2021 Influenza, High-dose , Quadrivalent Dewey Wolfe DO Work Phone: [facility] 08-08-2020 zoster vaccine recombinant Dewey Yuhas DO Work Phone: [facility] 05-31-2020 influenza, seasonal, injectable Dewey Yuhas DO Work Phone: [facility] 05-31-2020 zoster vaccine recombinant Dewey Yuhas DO Work Phone: [facility] 06-07-2019 influenza, seasonal, injectable Dewey Yuhas DO Work Phone: [facility] 06-02-2019 Influenza, injectabl e, Madin [place] Canine Kidney, quadrivalent with preservative Dewey Yuhas DO Work Phone: [facility] 09-25-2017 Influenza, injectabl e, Madin Kyra Canine Kidney, preservative free, quadrivalent Dewey Yuhas DO Work Phone: [facility] 06-11-2016 influenza, seasonal, injectable, preservative free Dewey Yuhas DO Work Phone: [facility] 05-17-2015 influenza, seasonal, injectable, preservative free Dewey Yuhas DO Work Phone: [facility] 08-12-2012 tetanus toxoid, reduced diphtheria toxoid, and acellular pertussis vaccine, adsorbed Dewey Yuhas DO Work Phone: [facility] Payers Date Payer Category Payer Self-pay [id number] 2020 Medicare [id number] 2020 Medicare (Managed Care) 1.2. [id number] 2020 Medicare O [id number]. 315 1959 Medicare [id number] 2.16. 840.1.597962.19 1955 Unknown [id number] 2.16.84 0.1.972949.3.579.2.593 1955 Unknown [id number] 2.16.84 0.1.978279.3.579.2.593 1955 Unknown [id number] 2.16.84 0.1.541829.3.579.2.593 1955 Unknown [id number] 2.16.84 0.1.027605.3.579.2.593 1955 Unknown [id number] 2.16.8 40.1.368234.3.579.2.1286 1955 Unknown [id number] 2.16.8 40.1.058917.3.579.2.128 1955 Unknown [id number] 2.16.8 40.1.937052.3.579.2.128 1955 Unknown [id number] 2.16.8 40.1.961466.3.579.2.1286 1955 Unknown [id number] 2.16.8 40.1.872419.3.579.2.1286 1955 Unknown [id number] 2.16.84 0.1.755160.3.579.2.1286 1955 Unknown [id number] 2.16.8 40.1.304069.3.579.2.1286 1955 Unknown [id number] 2.16.8 40.1.491806.3.579.2.128 1955 Unknown [id number] 2.16.84 0.1.814671.3.579.2.128 1955 Unknown [id number] 2.16. 840.1.665250.3.579.2.128 1955 Unknown [id number] 2.16. 840.1.015370.3.579.2.128 1955 Unknown [id number] 2.16. 840.1.288167.3.579.2.1285 1955 Unknown [id number] 2.16. 840.1.933345.3.579.2.1285 1955 Unknown [id number] 2.16.8 40.1.949190.3.579.2.1285 1955 Unknown [id number] 2.16.8 40.1.429623.3.579.2.1285 1955 Unknown [id number] 2.16.8 40.1.455744.3.579.2.1285 1955 Unknown [id number] 2.16.8 40.1.629543.3.579.2.1285 1955 Unknown [id number] 2.16.8 40.1.291956.3.579.2.1285 1955 Unknown [id number] 2.16.8 40.1.570404.3.579.2.1285 1955 Unknown [id number] 2.16.8 40.1.355690.3.579.2.1285 1955 Unknown [id number] 2.16.8 40.1.758012.3.579.2.1285 1955 Unknown [id number] 2.16.84 0.1.634527.3.579.2.1258 1955 Unknown [id number] 2.16.84 0.1.175239.3.579.2.1258 1955 Unknown [id number] 2.16.84 0.1.369860.3.579.2.1258 1955 Unknown [id number] 2.16.84 0.1.415290.3.579.2.1258 1955 Unknown [id number] 2.16.84 0.1.177923.3.579.2.1259 Medicare Medicare [id number] Unknown [facility] [place] [place] [id number] Unknown [id number] 2.16.8 40.1.489639.3.579.2.531 Unknown [id number] 2.16.8 40.1.516241.3.579.2.531 Social History Date Type Detail Facility Start: 03-21-2023 End: 05-13-2023 Sex Assigned At [facility] Start: 05-09-2020 End: 11-15-2024 Tobacco smoking status LAIS Never smoked tobacco (finding) [facility] Start: 1955 Sex Assigned At Female F [facility] Tobacco smoking stat us LAIS Tobacco smoking consumption unknown [facility] Start: 03-21-2023 End: 05-13-2023 History of Social function [facility] National Score (1-100), lower number is lower risk 53 [facility] Start: 1955 Sex Assigned At Not on file [facility] Start: 02-02-2024 End: 11-15-2024 Tobacco use and exposure Smokeless tobacco non-user [facility] Start: 02-02-2024 End: 12-09-2024 Alcoholic beverage intake Lifetime non-drinker (finding) [facility] Start: 01-26-2024 Gender identity Identifies as female gender (finding) [facility] Start: 08-04-2024 End: 10-05-2024 Alcoholic beverage intake Current drinker of alcohol (finding) [employer] Has the [employer], or [employer] threatened to shut off services in your home in past 12Mo No [employer] Are you now , , , , never or living with a partner? [facility] [employer] How often to you hav e a drink containing alcohol? Never [facility] [employer] [facility] Do you feel stress - tense, restless, nervous, or anxious, or unable to sleep at night because your mind is troubled all the time - these days [OSQ] Very much [facility] Start: 08-10-2018 Alcohol Comment occasionally once a year [facility] Start: 03-30-2015 Sex Female (finding) [facility] Start: 11-15-2024 Alcoholic beverage intake Ex-drinker (finding) [facility] Clinical Notes 01-17-2022 to 01-10-2025 Radha Zelaya MD - 01/10/2025 3:28 PM Linda Hanson NP - 12/09/2024 8:20 AM Briseida Bashir RT(R) - 11/25/2024 6:30 PM Radha Bauer MD - 11/16/2024 8:13 AM EDTPatient Instructions Note Date & Type Note Facility 01-10-2025 History of Present illness Narrative Images from the original note were not included. Section of Facial Plastic & Reconstructive Surgery [facility], [facility] FOLLOW-UP VIRTUAL VISIT CC: imaging review MODALITY: [...] sialolith on exam. Discussed referral to Dr. Kinney. Radha Zelaya MD Facial Plastic and Reconstructive Surgery [facility] 01/10/2025 Greater than 10 minutes were spent [...] pathology reports: NA documented in this encounter [facility] 12-09-2024 History of Present illness Narrative Images from the original note were not included. Chief Complaint Patient presents with Migraine PLMD Patient is here today for follow-up of migraines. I am following the plan of care established by the physician who is present in the office today. Irene [place]es states her migraines have been worse this month. She has had about 5 migraines this past month but it was stable. She does think this is due to the recent weather changes. Maxalt does help to abort. She states her PLMD is still controlled with the Klonopin. She thinks she might need refills on her klonopin and tizanidine but not sure. She will call in. Past Medical History: Diagnosis Date Acute poliomyelitis, unspecified 01/07/2008 poliovirus Anemia 01/30/2009 Complication - CRF Induced Anemia Anxiety disorder 01/07/2008 Backache 08/09/2014 Cervicalgia 11/05/2010 Chronic migraine without aura, with intractable migraine, so stated, with status migrainosus (CMS/HCC) 10/04/2011 with refractory migraine, so stated Common migraine (CMS/HCC) 01/24/2011 Depression (CMS/HCC) 01/07/2008 Difficulty walking 1960 Disturbance of skin sensation 03/16/2014 Dizziness 08/13/2012 Fatigue 12/25/2017 Fibromyalgia 05/15/2015 Headache 01/15/2008 Hemiplegia, unspecified affecting unspecified side ([facility]) 01/07/2008 Hypersomnia 12/25/2017 Hypertension ([facility]) 1989 Insomnia 03/15/2019 Malaise and fatigue 08/08/2011 Migraine 01/07/2008 Muscle spasm 05/29/2015 Numbness and tingling 09/14/2019 Obstructive sleep apnea 12/25/2017 Pain in joint, shoulder region 06/18/2010 Periodic limb movement 12/25/2017 Periodic limb movement disorder 02/19/2018 Peripheral neuropathy 1989 PLMD (periodic limb movement disorder) 03/15/2019 Restless legs syndrome (RLS) 12/04/2009 Syndrome affecting cervical region 12/20/2011 Tension headache 01/15/2008 Weakness of limb 1989 Weight gain, abnormal 07/17/2009 Past Surgical History: Procedure Laterality Date BREAST LUMPECTOMY x [address] ANGIO HEAD 06/10/2016 CT ANGIO HEAD 06/10/2016 CT ANGIOGRAM HEART CORONARY 08/24/2020 CT ANGIOGRAM HEART CORONARY 08/24/2020 FOOT SURGERY Right HYSTERECTOMY OTHER SURGICAL HISTORY Cyrosurgery TONSILLECTOMY VAGINAL DELIVERY x4 Family History Problem Relation Name Age of Onset Coronary artery disease Mother Migraines Mother Cancer Father Coronary artery disease Father Breast cancer Sister Coronary artery disease Sister Hyperlipidemia Sister Social History Tobacco Use Smoking status: Never Smokeless tobacco: Never Substance Use Topics Alcohol use: Never Allergies: Patient has no known allergies. General: No fever or chills HEENT: No nasal congestion or runny nose Pulmonary: No shortness of breath or cough Cardiovascular: No chest pain or palpitations GI: No nausea or vomiting : No dysuria or hematuria Musculoskeletal: No new aches or pains or muscle weakness Infectious: no recurrent fevers or infections Dermatologic: No rashes or skin lesions Neurologic: No new headaches or dizziness Vitals: 12/09/24 0820 BP: 124/77 Pulse: 69 Body mass index is 25.75 kg/m . weight: 150 lb Neurologic exam: General: Normal body habitus, cooperative, pleasant Mental status: Awake, alert to person, place and time. Recent and remote memory are intact. Attention and concentration are normal. Fund of knowledge is appropriate for level of education. HEENT: NC/AT Cranial nerves: CN II: Visual snyder full to confrontation. No loss of vision CN III, IV, : pupils equal round and reactive to light. Extraocular movements intact. No ptosis present. CN V: Facial sensation is normal. CN VII: Full and symmetric facial movement. CN VIII: Hearing is normal CN IX and X: Palate elevates symmetrically. CN XI: Shoulder shrug is normal bilaterally. CN XII: Tongue is midline without atrophy or fasciculation. Speech: Clear and fluent no aphasia or dysarthria Pronator drift: Negative bilateral upper extremity Coordination: Intact, no signs of dysmetria Good finger to nose and rapid alternating movements Sensory: Sensation is intact to light, temperature and vibratory touch throughout four extremities. Pinprick intact in all four extremities. Motor: LUE 5/5 RUE 5/5 LLE 4-/5 RLE 5/5, although some foot drop and weakness lifting up her right toes Tone: Physiologic, no tremor, bradykinesia or rigidity DTR: Bilateral Biceps 2/4 Bilateral BR 2/4 Bilateral Patellar 1/4 No spasticity Gait: Steppage gait from history of polio in the LLE and weakness into her toes right LE Romberg's Negative Assessment/Plan Diagnoses and all orders for this visit: Periodic limb movement Migraine without aura and without status migrainosus, not intractable (CMS/HCC) Foot drop, right PLMD (periodic limb movement disorder) - clonazePAM (KlonoPIN) 0.5 MG tablet; Take 1-2 at bedtime 69-year-old female with headaches made up of migraines primarily and tension type headaches. These were doing really well until last month as she had 5. She does believe this is due to weather changes. The maxalt did work to abort these, with one dose. She does not want to change any treatment at this time. Weather is a trigger. She did have what sounds to be an ocular migraine with some scotoma kaleidoscope vision out of her left eye without AGEE but has not had any further events. Will watch this. She did not have any loss of vision. If she does she needs to call her eye drJose Luis . She does have a mild sleep apnea. She wanted a referral to [facility] for their opinion on Inspire. As discussed, her AHI was not high enough. She continues not wearing her CPAP mask despite risks. The patient was counseled on the risks of stroke, MT, and sudden with JOSE ANGEL, along with the need for compliance with the CPAP/BiPAP treatment. . She does still feel like she has some mild cognitive impairment I suspect this is from the untreated sleep apnea and being tired. NO one else has really noticed that. Denies unsafe behaviors. This remains stable. . She continues with numbness and tingling and paresthesias in her legs that is chronic and remains stable. This is worse when she is sitting or in a car. She states it is true numbness and tingling however I am concerned that it could be a restless limb syndrome contributing as well. She does have the weakness in her left lower extremity from her history of polio. She trips a lot, she is getting weaker. She did have a fall without injury. NO falls since last visit. She can only exercise safely in a pool and states she had not been doing this due to pools being closed. She is now back in the pool. She does feel weaker and as if she is gaining weight. She is still in normal BMI. She may need to increase her exercise routine. She states she can safely get on the stationary bike She has some history of restless limb syndrome. Repeat EMG BLE 06/2023 moderate-severe right peroneal motor neuropathy vs L5 radiculopathy, mild side to side difference likely due to her polio affecting the LLE. She is seeing pain mgt and had a caudal injection. Next injections were to be SI injections. She has some Periodic limb movement disorder is very well controlled on the Klonopin 1- 1/2 at bedtime. She is on Provigil and does benefit from this and improves her daytime hypersomnia. . Patient does have a right foot drop with weakness into her toes and decreased sensation distally due to her foot surgery and has more numbness and tingling into that right foot since then which is likely secondary to the surgery and remains stable. She has chronic depression since her daughter but she understands this is situational. Exercise is limited due to left knee meniscus probable tear and left shoulder pain. She has seen ortho for this. We did discuss exercise and this would be helpful for sleep maintenance. . She continues with some electric shock type feelings and tingling in her neck that ortho has sent her to PT for. She is also seeing them for a trigger finger. Injection to knee and finger has been helpful in the past. She does have some intermittent tingling in her neck that Dr. Wolfe is managing and has done xrays for so far. . Review and summary of old records: We sent her to [facility] as she wanted their opinion. They told her her apnea-hypopnea index was not high enough to qualify for inspire. In review her respiratory event index is 10.9 events/hour of study. She has 92 respiratory events, 12 apneas and 80 hypoapneas, minimum oxygen saturation was 84%, she did 8.5 minutes at sat less than 88%, 6.8% of the study <90%. They recommended potentially doing an oral appliance but then her appt was cancelled with the [facility] doctor that does the oral appliances. Her dentist does not do oral appliances. Her PCP told her to get one off [employer]. We believe she should be using her mask to treat her JOSE ANGEL and this was discussed. HST can underestimate an AHI. In the note it does state she can try oral appliance, ENT referral , the usual conservative measures or PAP therapy for daytime sleepiness, insomnia and other symtpoms. Therefore we feel there are multiple reasons for her to continue the mask. Note does suggest increasing her max pressure if she does stay on the mask as she is at the max. WE have made pressure changes in the past. She was given Dr. Maza name to call as she does not want to wear the mask. She wants to discuss the oral applaince. She feels she sleeps better without the mask and does not want to wear it despite risk of stroke heart attack and sudden . I do believe she is feeling worse overall and she has significant daytime hypersomnia partially due to the untreated JOSE ANGEL. . . . Plan Continue with pain mgt and back injections Dr. Wolfe has worked up her neck She refuses to continue with mask for JOSE ANGEL despite risks Monitor for more ocular migraines. If she has loss of vision she needs to let her eye doctor know. Continue the klonopin 0.5 mg 1 1/2-2 at bedtime for PLMD. Continue Provigil 100 mg every am OARRS reviewed at time of refills and today, as expected She needs to monitor diet and increase exercise as she is concerned about her weight increasing exercise regularly as able and get back to pool workouts 3 times/week Continue with HEP for neck monitor memory The patient was councelled on the risks of stroke, MT, and sudden with JOSE ANGEL, along with the need for compliance with CPAP/BiPAP treatment. The patient was counseled on proper sleep hygiene and adequate hours of sleep. This was discussed with the patient, all questions were answered and they agreed with the treatment plan. The patient is to call with any worsening of the condition or new symptoms. Return to clinic: 3 months documented in this encounter [facility] 11-25-2024 History of Present illness Narrative Radiology Service Progress Note PATIENT NAME: Anushka Perdue DATE OF SERVICE: November 25, 2024 TIME: 6:14 PM PATIENT IDENTITY VERIFICATION COMPLETED USING TWO (2) IDENTIFIERS: Name and Date of confirmed by patient verbally and Name and Date of confirmed by identification band. FALL SCREENING: Has the patient had 2 falls in the last year or 1 fall with injury or currently using an Ambulatory Assistive Device (Walker, Cane, Wheelchair, Crutches, etc.)? No PATIENT GENDER DATA: Assigned female at . status: : No status: NO. PATIENT RELEVANT IMPLANT DATA REVIEWED: Not Applicable PATIENT PRESENTS WITH AN IMPLANTABLE OR ATTACHED PRACTICE DIRECTOR: No RADIOLOGY DEPARTMENT: CT; Exam(s) Completed: Face/Mandible PERIPHERAL IV DATA: Not applicable SIGNED BY: RUPERT Velasquez) November 25, 2024 6:14 PM documented in this encounter [facility] 11-25-2024 Note HNO ID: [id number] Author: BRISEIDA TREVIZO RT(R) Service: Radiology Author Type: Technologist Type: Progress Notes Filed: 11/25/2024 18:14 Note Text: Radiology Service Progress Note PATIENT NAME: Anushka Perdue DATE OF SERVICE: November 25, 2024 TIME: 6:14 PM PATIENT IDENTITY VERIFICATION COMPLETED USING TWO (2) IDENTIFIERS: Name and Date of confirmed by patient verbally and Name and Date of confirmed by identification band. FALL SCREENING: Has the patient had 2 falls in the last year or 1 fall with injury or currently using an Ambulatory Assistive Device (Walker, Cane, Wheelchair, Crutches, etc.)? No PATIENT GENDER DATA: Assigned female at . status: : No status: NO. PATIENT RELEVANT IMPLANT DATA REVIEWED: Not Applicable PATIENT PRESENTS WITH AN IMPLANTABLE OR ATTACHED PRACTICE DIRECTOR: No RADIOLOGY DEPARTMENT: CT; Exam(s) Completed: Face/Mandible PERIPHERAL IV DATA: Not applicable SIGNED BY: RT Eva(R) November 25, 2024 6:14 PM [facility] 11-16-2024 Note HNO ID: [id number] Author: RADHA ZELAYA MD Service: ? Author Type: Physician Type: Progress Notes Filed: 11/16/2024 08:20 Note Text: Section of Facial Plastic AND Reconstructive Surgery [facility], [facility] NEW PATIENT CONSULTATION CC: nasal obstruction / nasal pain Referring Provider: No referring provider defined for this encounter. Phone: N/A Fax: My recommendations will be communicated to the referring provider via the electronic medical record or US mail. IMPRESSION AND PLAN: Anushka Perdue is a 68 year [...] a virtual visit to review the plan. Radha Zelaya MD Facial Plastic and Reconstructive Surgery [facility] 11/15/2024 HISTORY OF PRESENT ISSUE: Anushka Perdue is a 68 year old female who presents for evaluation of nasal obstruction and nasal pain. She has a history of severe trauma with reconstructive septorhinoplasty. Sustained both nasal and orbital fractures She has developed worsening nasal obstruction. Has tried nasal steroid sprays without improvement. Nasal obstruction affects both sleep and activity. Left side is worse than right. Has pain due to bony irregularities of the dorsum. She is unable to wear glasses for a significant period of time because of this. I reviewed the patient's past medical history, past surgical history, social history, family medical history, allergies, and current medications. PHYSICAL EXAM: vitals were not taken for this visit. Nose Bony dorsal irregularity, sharp bony protuberance Mild saddle nose deformity Loss of tip support resulting in nasal valve incompetence Dynamic collapse bilaterally with + mod jerrica Mild left septal deviation with caudal component Mild inferior turbinate hypertrophy IMAGING: I personally reviewed the following radiologic exams: Na REVIEW OF RECORDS: I personally reviewed the office encounters from 0 independent providers: [facility] / LABS: I personally reviewed the following reports: NA PROCEDURES: NA [facility] 11-16-2024 History of Present illness Narrative Images from the original note were not included. Section of Facial Plastic & Reconstructive Surgery [facility], [facility] NEW PATIENT CONSULTATION CC: nasal obstruction / nasal pain Referring Provider: No referring provider defined for this encounter. Phone: N/A Fax: My recommendations will be communicated to the referring provider via the electronic medical record or US mail. IMPRESSION & PLAN: Anushka Perdue is a 68 year [...] a virtual visit to review the plan. Radha Zelaya MD Facial Plastic and Reconstructive Surgery [facility] 11/15/2024 HISTORY OF PRESENT ISSUE: Anushka Perdue is a 68 year old female who presents for evaluation of nasal obstruction and nasal pain. She has a history of severe trauma with reconstructive septorhinoplasty. Sustained both nasal and orbital fractures She has developed worsening nasal obstruction. Has tried nasal steroid sprays without improvement. Nasal obstruction affects both sleep and activity. Left side is worse than right. Has pain due to bony irregularities of the dorsum. She is unable to wear glasses for a significant period of time because of this. I reviewed the patient's past medical history, past surgical history, social history, family medical history, allergies, and current medications. PHYSICAL EXAM: vitals were not taken for this visit. Nose Bony dorsal irregularity, sharp bony protuberance Mild saddle nose deformity Loss of tip support resulting in nasal valve incompetence Dynamic collapse bilaterally with + mod jerrica Mild left septal deviation with caudal component Mild inferior turbinate hypertrophy IMAGING: I personally reviewed the following radiologic exams: Na REVIEW OF RECORDS: I personally reviewed the office encounters from 0 independent providers: [facility] / LABS: I personally reviewed the following reports: NA PROCEDURES: NA documented in this encounter [facility] 11-02-2024 Telephone encounter Note 08/11/2024 Continue Provigil 100 mg every am OARRS reviewed due now [facility] 11-02-2024 Miscellaneous Notes 08/11/2024 Continue Provigil 100 mg every am OARRS reviewed due now documented in this encounter [facility] 10-05-2024 History of Present illness Narrative [facility] [address] [place] [address] Patient: Anushka Perdue Sex: female : 1955 Age: 68 y.o. PCP: Dewey Wolfe Jr, DO 10/05/2024 Anushka Perdue is here for a(n) post procedure follow up Caudal KEVIN on 09/03/2024 with 50% relief which continues for her lumbar pain, her worst pain now is in her bilateral glutes. Date of onset of pain: 2021 , pain has lasted greater than 3 months. Pain scale before treatment: 6/10 Pre-op pain score: 6/10 Post-op pain score: 3/10 Percentage and duration of relief after treatment: 30-40% relief about 3 weeks after procedure and continues. Pain scale after treatment: 12/02 Chief Complaint Patient presents with Back Pain HPI: Back: Completed PT February 2024-PT Services, continuing HEP 05/21/2024 caudal epidural with improved tolerance with ambulation. Patient reports that she is able to ambulate longer before pain becomes severe. Caudal KEVIN on 09/03/2024 with 50% relief of lumbar pain which continues. Back Pain This is a chronic problem. The current episode started more than 1 year ago (2021). The problem occurs constantly. The problem has been gradually improving since onset. The pain is present in the gluteal, lumbar spine and sacro-iliac. The quality of the pain is described as aching and cramping (occasional cramping to leg calves). Radiates to: bilateral hips. The pain is at a severity of 4/10. The pain is moderate (can get severe). The pain is The same all the time. The symptoms are aggravated by sitting, standing and coughing (walking, lifting, sneezing, transitioning). Stiffness is present All day. Risk factors: Hx of Polio. She has tried home exercises, muscle relaxant, NSAIDs and heat (Prev PT February 2024, Activity Modification, tizanidine, swimming, voltaren gel, CBD cream) for the symptoms. The treatment provided mild relief. The effect of pain on patient's ADLS: Moderate Impairment. Past Medical History: Diagnosis Date Arthritis Chronic pain disorder Dizziness GERD (gastroesophageal reflux disease) H/O cardiovascular stress test H/O electrocardiogram Hyperlipidemia Hypertension Interstitial cystitis Kidney stone Low back pain Migraines Neck pain Osteoarthritis Periodic limb movement Polio PONV (postoperative nausea and vomiting) Upper back pain Urinary tract infection Visual impairment glasses or contacts Past Surgical History: Procedure Laterality Date BREAST BIOPSY Right 1996 benign BREAST BIOPSY Left STEREOTACTIC benign CHOLECYSTECTOMY Laparoscopic COLONOSCOPY 2007 COLONOSCOPY N/A 10/15/2017 Performed by Dewey Wolfe DO at [facility] CYSTOSCOPY WITH HYDRODISTENTION N/A 08/14/2018 Performed by Reece Razo MD at [facility] SURGERY ESOPHAGOGASTRODUODENOSCOPY N/A 02/28/2021 Performed by Dewey Wolfe DO at [facility] FOOT SURGERY Right 2016 hardware in foot HYSTERECTOMY 2004 INJECTION BLOCK EPIDURAL CAUDAL STEROID N/A 09/03/2024 Performed by Stephon Contreras MD at [facility] INJECTION BLOCK EPIDURAL CAUDAL STEROID N/A 05/21/2024 Performed by Stephon Contreras MD at [facility] REDUCTION MAMMAPLASTY 2012 SEPTOPLASTY TONSILLECTOMY TOOTH EXTRACTION Left 08/04/2024 tooth number 20 No Known Allergies Family History Problem Relation Age of Onset Kidney disease Mother Heart disease Mother Coronary artery disease Mother Lung disease Father Heart disease Father Cancer Father Coronary artery disease Father Stroke Father Breast cancer Sister 49 Coronary artery disease Sister Diabetes type II Sister Diabetes type II Sister Hypertension Sister Rheum arthritis Sister Diabetes type II Brother Hypertension Brother Hyperlipidemia Brother Hypertension Brother Hyperlipidemia Brother Kidney disease Daughter Anesthesia problems Neg Hx Scot Breast Cancer Neg Hx Social History Socioeconomic History Marital status: Spouse name: Not on file Number of children: Not on file Years of education: Not on file Highest education level: Not on file Occupational History Not on file Tobacco Use Smoking status: Never Smokeless tobacco: Never Vaping Use Vaping status: Never Used Substance and Sexual Activity Alcohol use: Yes Comment: occasionally once a year Drug use: No Sexual activity: Not Currently Partners: Male Other Topics Concern Not on file Social History Narrative Not on file Social Drivers of Health Financial Resource Strain: Low Risk (04/03/2023) Overall Financial Resource Strain (CARDIA) Difficulty of Paying Living Expenses: Not hard at all Food Insecurity: No Food Insecurity (10/05/2024) Hunger Screening Food Insecurity - Worry: Never True Food Insecurity - Inability: Never True Transportation Needs: No Transportation Needs (04/03/2023) PRAPARE - Transportation Lack of Transportation (Medical): No Lack of Transportation (Non-Medical): No Physical Activity: Sufficiently Active (04/03/2023) Exercise Vital Sign Days of Exercise per Week: 7 days Minutes of Exercise per Session: 30 min Stress: Stress Concern Present (04/08/2024) [employer] [facility] - Occupational Stress Questionnaire Feeling of Stress : Very much Social Connections: Moderately Integrated (04/03/2023) Social Connection and Isolation Panel [NHANES] Frequency of Communication with Friends and Family: More than three times a week Frequency of Social Gatherings with Friends and Family: More than three times a week Attends Evangelical Services: More than 4 times per year Active Member of Clubs or Organizations: No Attends Club or Organization Meetings: Never Marital Status: Interpersonal Safety: Not At Risk (04/03/2023) Humiliation, Afraid, Rape, and Kick questionnaire Fear of Current or Ex-Partner: No Emotionally Abused: No Physically Abused: No Sexually Abused: No Housing Instability: Low Risk (04/03/2023) Housing Instability Housing Instability: No Review of Systems Musculoskeletal: Positive for neck pain. Vital Signs: BP 100/75 (BP Site: Left Arm, BP Postition: Sitting) Pulse 72 Resp 20 Physical Exam: GENERAL - Healthy patient that appears stated age. HEENT - Normocephalic / Atraumatic, Extraoccular movements intact, trachea midline, thyroid within normal limits. CV - pulse regular, Warm extremities with appropriate color of nailbeds. RESP - No obvious wheezing, No Shortness of Breath, No overexertion response to exam maneuvers. COORDINATION - remains intact. PSYCH - Alert and Oriented x4, Attentive and appropriate, constitutionally normal, displays normal mood and affect per situation, answered questions appropriately during examination, demonstrated appropriate attention during discussion, demonstrated appropriate cognitive reasoning and understanding of the medical condition by asking appropriate questions regarding the diagnosis and risks/benefits/alternatives of treatment modalities. No obvious deficits in memory, reasoning, or intellect. Lumbar: SKIN - No rashes or bruising in the area of the patient s pain. LYMPH NODES - demonstrate no obvious enlargement. EXTREMITIES - Lower extremities are warm, with minimal edema and palpable pulses. No significant tenderness to palpation noted in the lumbar spine and paraspinal musculature. Mild pain is elicited with flexion, extension, and lateral rotation of the lumbar spine. Range of motion is not diminished with these motions. Facet palpation is negative for significant pain and facet loading maneuvers elicit only mild pain that is not concordant with the patient s normal pain complaints. STRENGTH - noted to be 5 out of 5 all muscle groups bilateral lower extremities including muscles involving hip flexion and abduction, knee flexion and extension, as well as foot dorsiflexion and plantarflexion. No notable atrophy, fasciculations or spasm. SENSORY - No notable sensory deficits in the bilateral lower extremities to touch or pinprick in all dermatomal distributions. Straight Leg Raise is negative bilaterally. Tenderness to palpation is noted over the Bilateral SacroIliac Joint: Fabere sign (Juan's Test) is significantly positive, as is compression and distraction of the sacroiliac joints, which is consistent with some of the patient's normal pain. Gait is normal. Assessment/Treatment Plan: Anushka was seen today for back pain. Diagnoses and all orders for this visit: Disorder of sacrum - Case request operating room: INJECTION BLOCK SACROILIAC JOINT Bilateral Sacroiliac Joint Injection - under fluoroscopy with the use of contrast dye (unless contraindicated) It is hopeful that the described procedure will provide symptomatic pain relief. It is felt to be medically necessary noting that the patient has tried and failed more conservative modalities of therapy and this is the next most appropriate step. The procedure was described in detail to the patient as well as the potential benefits of pain reduction alongside risks of the procedure and alternatives. Risks were described as including, but not limited to bleeding, infection, nerve damage, spinal cord injury, paralysis, stroke, dural puncture headache, and medication reaction. The patient expressed understanding regarding the risks and benefits and wishes to proceed. SI injections should provide information to confirm that the noted SI Joint arthropathy is the patient s most significant pain generator. Follow up 2 weeks after procedure The medications I have prescribed have been reviewed for medication interactions/contraindications and/or for upcoming procedures: continue current medication regimen without any changes. DISCUSSION: Treatment options discussed with patient and all questions answered to patient's satisfaction. Discussed the rules and regulations surrounding prescription of opioids and compliance at length. Failure to follow the rules and regulation will result in tapering and discontinuation of medications if applicable. Prescribed medication that requires intensive monitoring for toxicity We do not currently prescribe any controlled substance from this practice. It appears that the patient's previous pain is under adequate control with the previous procedure. At this point, we will continue to monitor these symptoms and turn our immediate attention to the more painful complaint that was discussed today. It does appear that is it the new primary pain complaint and the patient would likely benefit from a procedure as treatment for this complaint as well. The spine model was demonstrated and MRI was reviewed and used to explain the condition. OARRS: Reviewed. Scribe Statement: Essence Pal CNA, scribed for and in the presence of TAWANNA SWAIN who performed the above service. Provider Statement: GALLO Pal PA, personally performed the services described in the documentation, as scribed by Essence Yi CNA in my presence, and it is both accurate and complete. Essence Yi CNA 10/05/24 1206 Essence Yi CNA 10/05/24 1223 TAWANNA Swain 10/07/24 0918 documented in this encounter [facility] 10-05-2024 Instructions Essence Yi CNA - 10/05/2024 10:45 AM EST Facet Injection / Medial Branch Block (MBB) / Sacroiliac (SI) Joint Injection / Cluneal NB A facet injection and sacroiliac joint injection are injections of local anesthetic and steroid into a joint in the spine. A medial branch block is similar, but the medication is placed outside the joint space near the nerve that supplies the joint called the medial branch (steroid may or may not be used). You may require multiple injections depending upon how many joints are involved. How Long Will This Procedure Last? The extent and duration of pain relief may depend on the amount of inflammation and how many areas are involved. Other coexisting factors may be responsible for your pain. If your pain goes away for a short time, but then returns, you may be a candidate for radiofrequency ablation (RFA). Activity Be active. Attempt activities and movements that typically cause pain to see if it feels better while doing them. We will give you a pain diary. Please fill this out as directed by your nurse in pre-op. This will help your doctor determine the effectiveness of the injection, and how to proceed. Bring the pain diary with you to your follow-up appointment. Medications You should not take your pain medications for 4-6 hours before or after the injection in order to properly diagnose if the injection provides adequate relief. Resume your routine medications after your procedure. You may resume blood thinners per your regular schedule after the procedure. If you received sedation: If you received sedation for your procedure, you may feel sleepy or not yourself for several hours today. For the next 24 hours avoid activities that requires alertness or coordination. This includes: Driving or operating heavy machinery Using power tools Consuming alcohol Do not make important or complex decisions or sign legal documents in the next 24 hours. Other Instructions: If you feel severe pain at the injection site with swelling and redness, increased leg weakness, a fever of 101 or higher, headache (or worsening headache), changes in vision or urinary retention: Please call the office at , or have someone take you to the nearest emergency room. Tell the emergency room staff that you recently had a spine injection. A doctor must evaluate you for bleeding and injection complications. If you lose control over bowel, bladder, or legs: Go to the nearest emergency room. documented in this encounter [facility] 09-27-2024 Telephone encounter Note Continue Provigil 100 mg every am Continue the klonopin 0.5 mg 1 1/2-2 at bedtime for PLMD. Oarrs reviewed due now [facility] 09-27-2024 Miscellaneous Notes Continue Provigil 100 mg every am Continue the klonopin 0.5 mg 1 1/2-2 at bedtime for PLMD. Oarrs reviewed due now documented in this encounter [facility] 08-26-2024 History of Present illness Narrative [facility] [address] [place] [place] [address] Patient: Anushka Perdue Sex: female : 1955 Age: 68 y.o. PCP: Dewey Wolfe Jr, DO 08/26/2024 Anushka Perdue is here for a(n) follow up for back and neck pain. She reports her pain in her low back has been increasing recently. Chief Complaint Patient presents with Back Pain Neck Pain HPI: Back: Completed PT February 2024-PT Services, continuing HEP 05/21/2024 caudal epidural with improved tolerance with ambulation. Patient reports that she is able to ambulate longer before pain becomes severe. Back Pain This is a chronic problem. The current episode started more than 1 year ago (2021). The problem occurs constantly. The problem has been gradually improving (patient is able to ambulate longer than prior to 05/21/2024 caudal) since onset. The pain is present in the gluteal, lumbar spine and sacro-iliac (right hip). The quality of the pain is described as burning and aching (occasional cramping to legs). Radiates to: Rt hip down RLE. The pain is at a severity of 6/10 (up to 8/10 with prolonged ambulation or sitting). The pain is moderate (can get severe). The pain is The same all the time. The symptoms are aggravated by sitting, standing and coughing (walking, lifting, sneezing, transitioning). Stiffness is present All day. Associated symptoms include tingling (toes bilateral) and weakness (RLE, neck). Pertinent negatives include no chest pain, fever, headaches, leg pain or numbness. Risk factors: Hx of Polio. She has tried home exercises, muscle relaxant, NSAIDs and heat (Prev PT February 2024, Activity Modification, tizanidine, swimming, voltaren gel, CBD cream) for the symptoms. The treatment provided mild relief. Neck Pain This is a chronic problem. The current episode started more than 1 year ago (2021). The problem occurs constantly. The problem has been unchanged. The pain is associated with nothing. The pain is present in the left side, midline and right side. The quality of the pain is described as aching. The pain is at a severity of 3/10. The pain is moderate. The symptoms are aggravated by bending, coughing and sneezing (sitting, standing, walking, transitioning). The pain is Same all the time. Stiffness is present All day. Associated symptoms include tingling (toes bilateral) and weakness (RLE, neck). Pertinent negatives include no chest pain, fever, headaches, leg pain or numbness. She has tried home exercises, heat, NSAIDs, muscle relaxants and bed rest (Prev PT, tizanidine, swimming, voltaren gel, CBD cream) for the symptoms. The treatment provided mild relief. The effect of pain on patient's ADLS: Mild Impairment. Past Medical History: Diagnosis Date Arthritis Chronic pain disorder Dizziness GERD (gastroesophageal reflux disease) H/O cardiovascular stress test H/O electrocardiogram Hyperlipidemia Hypertension Interstitial cystitis Kidney stone Low back pain Migraines Neck pain Osteoarthritis Periodic limb movement Polio PONV (postoperative nausea and vomiting) Upper back pain Urinary tract infection Visual impairment glasses or contacts Past Surgical History: Procedure Laterality Date BREAST BIOPSY Right 1996 benign BREAST BIOPSY Left STEREOTACTIC benign CHOLECYSTECTOMY Laparoscopic COLONOSCOPY 2007 COLONOSCOPY N/A 10/15/2017 Performed by Dewey Wolfe DO at [facility] CYSTOSCOPY WITH HYDRODISTENTION N/A 08/14/2018 Performed by Reece Razo MD at [facility] SURGERY ESOPHAGOGASTRODUODENOSCOPY N/A 02/28/2021 Performed by Dewey Wolfe DO at [facility] FOOT SURGERY Right 2016 hardware in foot HYSTERECTOMY 2004 INJECTION BLOCK EPIDURAL CAUDAL STEROID N/A 05/21/2024 Performed by Stephon Contreras MD at [facility] PAIN REDUCTION MAMMAPLASTY 2012 SEPTOPLASTY TONSILLECTOMY TOOTH EXTRACTION Left 08/04/2024 tooth number 20 No Known Allergies Family History Problem Relation Age of Onset Kidney disease Mother Heart disease Mother Coronary artery disease Mother Lung disease Father Heart disease Father Cancer Father Coronary artery disease Father Stroke Father Breast cancer Sister 49 Coronary artery disease Sister Diabetes type II Sister Diabetes type II Sister Hypertension Sister Rheum arthritis Sister Diabetes type II Brother Hypertension Brother Hyperlipidemia Brother Hypertension Brother Hyperlipidemia Brother Kidney disease Daughter Anesthesia problems Neg Hx Scot Breast Cancer Neg Hx Social History Socioeconomic History Marital status: Spouse name: Not on file Number of children: Not on file Years of education: Not on file Highest education level: Not on file Occupational History Not on file Tobacco Use Smoking status: Never Smokeless tobacco: Never Vaping Use Vaping status: Never Used Substance and Sexual Activity Alcohol use: Yes Comment: occasionally once a year Drug use: No Sexual activity: Not Currently Partners: Male Other Topics Concern Not on file Social History Narrative Not on file Social Drivers of Health Financial Resource Strain: Low Risk (04/03/2023) Overall Financial Resource Strain (CARDIA) Difficulty of Paying Living Expenses: Not hard at all Food Insecurity: No Food Insecurity (08/26/2024) Hunger Screening Food Insecurity - Worry: Never True Food Insecurity - Inability: Never True Transportation Needs: No Transportation Needs (04/03/2023) PRAPARE - Transportation Lack of Transportation (Medical): No Lack of Transportation (Non-Medical): No Physical Activity: Sufficiently Active (04/03/2023) Exercise Vital Sign Days of Exercise per Week: 7 days Minutes of Exercise per Session: 30 min Stress: Stress Concern Present (04/08/2024) [employer] - Occupational Stress Questionnaire Feeling of Stress : Very much Social Connections: Moderately Integrated (04/03/2023) Social Connection and Isolation Panel [NHANES] Frequency of Communication with Friends and Family: More than three times a week Frequency of Social Gatherings with Friends and Family: More than three times a week Attends Evangelical Services: More than 4 times per year Active Member of Clubs or Organizations: No Attends Club or Organization Meetings: Never Marital Status: Interpersonal Safety: Not At Risk (04/03/2023) Humiliation, Afraid, Rape, and Kick questionnaire Fear of Current or Ex-Partner: No Emotionally Abused: No Physically Abused: No Sexually Abused: No Housing Instability: Low Risk (04/03/2023) Housing Instability Housing Instability: No Review of Systems Constitutional: Negative. Negative for chills, fatigue and fever. HENT: Negative. Respiratory: Negative. Negative for cough and shortness of breath. Cardiovascular: Negative. Negative for chest pain. Gastrointestinal: Negative. Negative for constipation and diarrhea. Genitourinary: Negative. Musculoskeletal: Positive for back pain, gait problem (07/2024 trip ) and neck pain. Skin: Negative. Negative for rash and wound. Neurological: Positive for tingling (toes bilateral) and weakness (RLE, neck). Negative for numbness and headaches. Hematological: Negative. Does not bruise/bleed easily. Psychiatric/Behavioral: Negative. Negative for self-injury and suicidal ideas. Vital Signs: BP 104/78 Pulse 66 Resp 18 Ht 162.6 cm (5' 4 ) Wt 66.2 kg (146 lb) SpO2 96% BMI 25.06 kg/m Physical Exam: GENERAL - Healthy patient that appears stated age. HEENT - Normocephalic / Atraumatic, Extraoccular movements intact, trachea midline, thyroid within normal limits. CV - pulse regular, Warm extremities with appropriate color of nailbeds. RESP - No obvious wheezing, No Shortness of Breath, No overexertion response to exam maneuvers. COORDINATION - remains intact. PSYCH - Alert and Oriented x4, Attentive and appropriate, constitutionally normal, displays normal mood and affect per situation, answered questions appropriately during examination, demonstrated appropriate attention during discussion, demonstrated appropriate cognitive reasoning and understanding of the medical condition by asking appropriate questions regarding the diagnosis and risks/benefits/alternatives of treatment modalities. No obvious deficits in memory, reasoning, or intellect. Lumbar: SKIN - No rashes or bruising in the area of the patient s pain. LYMPH NODES - demonstrate no obvious enlargement. EXTREMITIES - Lower extremities are warm, with minimal edema and palpable pulses. Tenderness to palpation noted in the lumbar spine and paraspinal musculature. Pain is elicited with flexion, extension, and lateral rotation of the lumbar spine. Range of motion is diminished with these motions due to pain. Facet palpation is noted to be somewhat tender and facet loading maneuvers are mildly positive, but not concordant with the patient s normal pain complaints. STRENGTH - noted to be 5 out of 5 all muscle groups bilateral lower extremities including muscles involving hip flexion and abduction, knee flexion and extension, as well as foot dorsiflexion and plantarflexion. No notable atrophy, fasciculations or spasm. SENSORY - No notable sensory deficits in the bilateral lower extremities to touch or pinprick in all dermatomal distributions. Straight Leg Raise is negative. Gait is normal. Assessment/Treatment Plan: Anushka was seen today for back pain and neck pain. Diagnoses and all orders for this visit: Spinal stenosis of lumbar region with neurogenic claudication - Case request operating room: INJECTION BLOCK EPIDURAL CAUDAL STEROID Caudal Epidural Steroid Injection - under fluoroscopy with the use of contrast dye (unless contraindicated) It is hopeful that the described procedure will provide symptomatic pain relief. It is felt to be medically necessary noting that the patient has tried and failed more conservative modalities of therapy and this is the next most appropriate step. The procedure was described in detail to the patient as well as the potential benefits of pain reduction alongside risks of the procedure and alternatives. Risks were described as including, but not limited to bleeding, infection, nerve damage, spinal cord injury, paralysis, stroke, dural puncture headache, and medication reaction. The patient expressed understanding regarding the risks and benefits and wishes to proceed. Follow up 2 weeks after procedure The medications prescribed have been reviewed for medication interactions/contraindications and/or for upcoming procedures: continue current medication regimen without any changes. DISCUSSION: Treatment options discussed with patient and all questions answered to patient's satisfaction. Prescribed medication that requires intensive monitoring for toxicity We do not currently prescribe any controlled substance from this practice. It is noted that the patient did have good response from the previously performed procedure. It is felt that the patient would benefit from an additional procedure of the same nature in that the same symptoms have returned. It is hopeful that this additional injection will provide additional benefit and duration when combined with the previous injection. The spine model was demonstrated and MRI was reviewed and used to explain the condition. OARRS: Reviewed. Scribe Statement: Scribed for and in the presence of TAWANNA SWAIN by Essence Yi CNA. Provider Statement: I, TAWANNA SWAIN, personally performed the services described in the documentation, as scribed by Essence Yi CNA in my presence, and it is both accurate and complete. Essence Yi CNA 08/26/24 [id number] TAWANNA Swain 08/26/24 1220 documented in this encounter [facility] 08-26-2024 Instructions Essence Yi CNA - 08/26/2024 8:45 AM EST Epidural Steroid Injection (KEVIN) / Nerve Root Injection / Nerve Block These procedure(s) involve the injection of a steroid and anesthetic into the epidural space or the nerve sheath that is both diagnostic and potentially therapeutic for alleviating discomfort of the legs and arms secondary to compression of the respective nerves due to bulging discs, bone spurs and other potential causes. Steroids are potent anti-inflammatory drugs that act to decrease the swollen and inflamed nerves thus relieving your clinical symptoms. How Long Will This Procedure Last? The extent and duration of pain relief may depend on the amount of inflammation and how many areas are involved. Other coexisting factors may be responsible for your pain. You and your physician will discuss expected results of procedure(s). After Your Injection You may experience soreness and tenderness at the area of treatment. This pain may not occur until later today after the numbing medicine wears off. The steroid can take 3-5 days to work and provide noticeable improvement. Activity You may feel temporary numbness, weakness or tingling: In the neck, arm, or fingertips (if your procedure was done in your neck) In the legs (if your procedure was done in your lower back) These symptoms are normal, and should subside within 3-4 hours. In that time, be careful to avoid falls. As a safety precaution, you must have a commercial collections driver after a lumbar nerve root injection, even if you do not receive sedation. Resume activity as tolerated when function has returned. Medications Resume your routine medications after your procedure. You may resume blood thinners per your regular schedule after the procedure. If you received sedation: If you received sedation for your procedure, you may feel sleepy or not yourself for several hours today. For the next 24 hours avoid activities that requires alertness or coordination. This includes: Driving or operating heavy machinery Using power tools Consuming alcohol Do not make important or complex decisions or sign legal documents in the next 24 hours. Other Instructions: If you feel severe pain at the injection site with swelling and redness, increased leg weakness, a fever of 101 or higher, headache (or worsening headache), changes in vision or urinary retention: Please call the office at , or have someone take you to the nearest emergency room. Tell the emergency room staff that you recently had a spine injection. A doctor must evaluate you for bleeding and injection complications. If you lose control over bowel, bladder, or legs: Go to the nearest emergency room. If you are diabetic, the steroids used in this procedure can increase your blood sugar. If your blood sugar is 250mg/dL or higher, contact your primary care physician, or the doctor who manages your diabetes, to discuss how to get it back to normal. documented in this encounter [facility] 08-16-2024 Telephone encounter Note [facility] Provigil refill due 08/19/24. [facility] 08-16-2024 Miscellaneous Notes [facility] reviewed Provigil refill due 08/19/24. documented in this encounter [facility] 07-29-2024 Telephone encounter Note Last dispensed 05/20 [facility] 07-29-2024 Miscellaneous Notes Last dispensed 05/20 documented in this encounter [facility] 06-14-2024 History of Present illness Narrative Images from the original note were not included. Isael Panchal MD Obstetrics and Gynecology Patient: Anushka Perdue, : 1955 (68 y.o.) DOS 06/14/24 Exam Date: 06/14/2024 HPI: Pr called to be seen She has pain with intercourse, bith wih touch and deep penetration. Lubrication does not help. She also feels a pressure or a fullness. She does have a hx of interstitial cystitis. She has had a hysterectomy Visit Vitals BP 124/80 Wt 147 lb BMI 25.23 kg/m OB Status Hysterectomy Smoking Status Never BSA 1.74 m OB History Para Term AB Living 5 4 4 0 1 4 SAB IAB Ectopic Multiple Live Births 1 0 0 0 4 # Outcome Date GA Lbr Beau/2nd Weight Sex Type Anes PTL Lv 5 SAB 4 Term 3 Term 2 Term 1 Term Obstetric Comments Pap: ? Mammo: 04/24/23-Neg ([facility]) DEXA: 04/17 Hysterectomy Medication and Allergies Medication Documentation Review Audit Reviewed by Ayana Causey MA (Neon Sign Erector) on 06/14/24 at 1301 Medication Order Taking? Sig Documenting Provider Last Dose Status amLODIPine (Norvasc) 5 MG tablet [id number] Take 5 mg by mouth in the morning. Active atorvastatin (Lipitor) 20 MG tablet [id number] Take 20 mg by mouth Daily Active clonazePAM (KlonoPIN) 0.5 MG tablet [id number] TAKE 1 AND 1/2 TO 2 TABLETS BY MOUTH EVERY NIGHT AT BEDTIME Eleni Hanson NP Active escitalopram (Lexapro) 20 MG tablet [id number] Take 1 tablet (20 mg) by mouth Daily Eleni Hanson NP Active ezetimibe (Zetia) 10 MG tablet [id number] Yes Take 1 tablet by mouth in the morning. Isael Panchal MD Active Ferrous Sulfate (iron) 325 (65 Fe) MG tablet [id number] Take 1 tablet by mouth Daily with an OTC vitamin C Active indapamide (Lozol) 2.5 MG tablet [id number] Take 1 tablet by mouth every other day Active losartan (Cozaar) 100 MG tablet [id number] Take 1 tablet by mouth in the morning. Active modafinil (Provigil) 100 MG tablet [id number] TAKE 1 TABLET BY MOUTH EVERY MORNING Eleni Hanson NP Active potassium chloride (Klor-Con) 20 MEQ packet [id number] Take 20 mEq by mouth Daily 1 packet with food Active rizatriptan BUTTON TUFTING MACHINE OPERATOR (Maxalt-BUTTON TUFTING MACHINE OPERATOR) 10 MG disintegrating tablet [id number] Take 10 mg by mouth 1 (one) time if needed for migraine 1 po at onset of migraine and may repeat with 1 po after 2 hours max 2/day, 2 days/wk Eleni Hanson NP Active tiZANidine (Zanaflex) 4 MG tablet [id number] TAKE 1 AND 1/2 TO 2 TABLETS BY MOUTH EVERY NIGHT AT BEDTIME Eleni Hanson NP Active No Known Allergies Past Medical History: Diagnosis Date Acute poliomyelitis, unspecified 01/07/2008 poliovirus Anemia 01/30/2009 Complication - CRF Induced Anemia Anxiety disorder 01/07/2008 Backache 08/09/2014 Cervicalgia 11/05/2010 Chronic migraine without aura, with intractable migraine, so stated, with status migrainosus ([facility]) 10/04/2011 with refractory migraine, so stated Common migraine ([facility]) 01/24/2011 Depression ([facility]) 01/07/2008 Difficulty walking 1960 Disturbance of skin sensation 03/16/2014 Dizziness 08/13/2012 Fatigue 12/25/2017 Fibromyalgia 05/15/2015 Headache 01/15/2008 Hemiplegia, unspecified affecting unspecified side ([facility]) 01/07/2008 Hypersomnia 12/25/2017 Hypertension ([facility]) 1990 Insomnia 03/15/2019 Malaise and fatigue 08/08/2011 Migraine ([facility]) 01/07/2008 Muscle spasm 05/29/2015 Numbness and tingling 09/14/2019 Obstructive sleep apnea 12/25/2017 Pain in joint, shoulder region 06/18/2010 Periodic limb movement 12/25/2017 Periodic limb movement disorder 02/19/2018 Peripheral neuropathy 1990 PLMD (periodic limb movement disorder) 03/15/2019 Restless legs syndrome (RLS) 12/04/2009 Syndrome affecting cervical region 12/20/2011 Tension headache 01/15/2008 Weakness of limb 1990 Weight gain, abnormal 07/17/2009 Past Surgical History: Procedure Laterality Date BREAST LUMPECTOMY x [address] ANGIO HEAD 06/10/2016 CT ANGIO HEAD 06/10/2016 CT ANGIOGRAM HEART CORONARY 08/24/2020 CT ANGIOGRAM HEART CORONARY 08/24/2020 FOOT SURGERY Right HYSTERECTOMY OTHER SURGICAL HISTORY Cyrosurgery TONSILLECTOMY VAGINAL DELIVERY x4 Physical Exam: Objective Physical Exam Constitutional: Appearance: Normal appearance. Genitourinary: Vulva normal. Vaginal cuff intact. No vaginal discharge or bleeding. Anterior vaginal prolapse present. Moderate vaginal atrophy present. Right Adnexa: not palpable. Left Adnexa: not palpable. Cervix is absent. Uterus is absent. Bladder is tender. Bladder exam comments: Gr II cystocoel. Breasts: Right: Normal. Left: Normal. Pulmonary: Effort: Pulmonary effort is normal. Abdominal: General: Abdomen is flat. Palpations: Abdomen is soft. Neurological: Mental Status: She is alert. Associated Treatments and Results - ICD-10-CM 1. Postmenopausal atrophic vaginitis N95.2 2. Dyspareunia in female N94.10 3. Cystocele, midline N81.11 4. Cervical cancer screening Z12.4 PAP IG, RFX [place] 5. Other screening mammogram Z12.31 Bilateral screening mammogram with tomosynthesis I believe the bulk of her sx are caused by atrophy. Will stat estrace vag cream and RTO in 3 mos to see if we need to address cystocoel Assessment/Plan Orders Placed This Encounter Procedures Bilateral screening mammogram with tomosynthesis U/S and spot compression if indicated Standing Status: Future Standing Expiration Date: 08/14/2025 Order Specific Question: Reason for exam: Answer: screen PAP IG, RFX HPV [place] PTH [place] Order Specific Question: Print requisition? Answer: No documented in this encounter [facility] 05-16-2023 Nurse Note Called pt - LVM to inform patient of appointment Danilo Anderson MELTER SUPER[employer] documented in this encounter [facility] 05-16-2023 History of Present illness Narrative Images from the original note were not included. [facility] Virtual Visit Follow up/ Established patient visit Date of last visit : 03/21/2023 I have communicated my name and active licensure. The patient's identity and physical location were verified at the time of this visit. Either the patient or their legal logistics service representative has been informed of the risks and benefits of -- and alternatives to -- treatment through a remote evaluation and consents to proceed with the evaluation remotely. Interval history : Has appt in August with Dr. Méndez Has not been using her CPAP. Here for sleep study follow up. HSAT not yet read. SLEEP HYGIENE QUESTIONS: Bedtime: 9:00 PM. She does not have a hard time falling asleep. Wake time: 10 AM, without an alarm. After falling asleep: she wakes up 3 time(s) per night, because of nocturia. Falls back asleep quickly. On weekends, she maintains the same sleep schedule. Average total sleep time (in a 24 hour period): 11-12 hours. Excessive Daytime sleepiness/fatigue has been a problem for 20 years. There is a history of viral illness (polio) prior to the start of daytime sleepiness. She does not take naps with modafinil. Before modafinil she would nap for 30-60 minutes a day. Would doze a lot. PATIENT-ENTERED QUESTIONNAIRE SLEEP SCORES Sleep Questions 05/13/2023 Reason for visit: Sleep apnea, Excessive daytime sleepiness, Restless Legs Syndrome Average hours slept in 24 hours: 10 Accidents or near accidents due to drowsy drivin Roy Sleepiness Scale 05/13/2023 Score 13 (present daytime sleepiness) PROMIS CAT Sleep Disturbance 05/13/2023 PROMIS Sleep Disturbance T-Score 49 (within normal limits) PROMIS Sleep Disturbance Percentile 54 % PHQ-9 05/13/2023 Score 14 PROMIS Global Health - (T-Scores - the mean of general population = 50. Five points is a clinically meaningful difference.) 05/13/2023 Physical T-Score 42.3 Mental T-Score 36.3 ALLERGIES Not on File CURRENT MEDICATIONS: losartan potassium (LOSARTAN ORAL) Take by mouth. INDAPAMIDE ORAL Take by mouth. atorvastatin (LIPITOR) 40 mg tablet Take 40 mg by mouth once daily. clonazePAM (KLONOPIN) 0.5 mg tablet Take 0.5 mg by mouth daily at bedtime. 1.5 tablets at night escitalopram oxalate (LEXAPRO) 20 mg tablet Take 20 mg by mouth daily at bedtime. tiZANidine (ZANAFLEX) 4 mg tablet Take 4 mg by mouth daily at bedtime. 1.5 tablets at bedtime rizatriptan (MAXALT BUTTON TUFTING MACHINE OPERATOR) 10 mg disintegrating tablet Take 10 mg by mouth as needed. As needed for migraine IMPRESSION/PLAN: Excessive daytime sleepiness Hypersomnia Obstructive sleep apnea (primary encounter diagnosis) 67 year old female with history of JOSE ANGEL intolerant of CPAP, EDS (possibly ?IH secondary to polio) on modafinil, tonsillectomy, breast reduction surgery, sinus surgery, HTN, HLD, and migraines presents for sleep study follow up. HSAT not yet read - message sent for prelim today. I reviewed the raw data and it appears overall mild, maybe low-moderate range. Plan: - f/u HSAT report today - Dentistry for OAT - Possible Inspire candidate second line if moderate-severe and intolerant of OAT - Follow up prn Keysha Henry DO MS I spent a total of 20 minutes on the date of the service which included preparing to see the patient, [id number] patient care, completing clinical documentation, obtaining and/or reviewing separately obtained history, performing a medically appropriate examination, counseling and educating the patient/family/caregiver, ordering medications, tests, or procedures, and communicating results to the patient/family/caregiver. documented in this encounter [facility] 04-16-2023 History of Present illness Narrative Sleep Study Check-In Documentation Date: April 16, 2023 Name: Anushka Perdue Comments: HST was returned in working order with all sleep questionnaires Yumiko Whitt Nomad# [id number] , date shipped out 04/10/23 W GPS Tracking mailout: [id number] [id number] Tracking return: [id number] [id number] April 02, 2023 An order has been received for Home Sleep Apnea Test (HSAT) from Dr. Henry, Keysha Goldberg DO, A. Sleep [facility] Staff/[facility] Staff Orders. Visit prep complete - Please refer to the sleep study order (under procedures tab) for protocol details and special instructions. The sleep study is scheduled for 05/02. Insurance: Payor: [employer] MEDICARE / Plan: [employer] MEDICARE PPO / Product Type: PPO / Payer/Plan Subscr Sex Relation Sub. Ins. ID Effective Group Num 1. [employer] MEDICA* ANUSHKA HERR 1955 Female Self [id number] 11/23/20 [address] [address] Orquidea Santos documented in this encounter [facility] 03-21-2023 History of Present illness Narrative Images from the original note were not included. [facility] New Patient Evaluation PATIENT NAME: Anushka Herr DATE OF SERVICE: March 21, 2023 CONSULTING PROVIDER: No referring provider defined for this encounter. REASON FOR VISIT: CPAP alternatives HPI: Anushka Herr is a 67 year old female with history of JOSE ANGEL on CPAP (intolerant), tonsillectomy, breast reduction surgery, sinus surgery, HTN, HLD, migraines, and polio. Sleep-related history: No studies available for review Daytime sleepiness began 15-20 years ago. Had a workup (MSLT, serum studies, etc). Does not recall result of MSLT. Started modafinil about 1 year ago. Has been working very well. Interested in Inspire Was told she has Periodic limb movement disorder at some point in the past CPAP download 6 hours a night, 7 nights a week Auto CPAP 6-12 cmH2O with EPR 3 AHI 3.5 SLEEP-WAKE SCHEDULE She is a self-described morning person. Bedtime: 9:00 PM. She does not have a hard time falling asleep. Reads a little bit. Falls asleep quickly with medicine. Wake time: 10 AM, without an alarm. After falling asleep: she wakes up 3 time(s) per night, because of CPAP discomfort. 1 nocturia early childhood worker. Falls back asleep quickly. On weekends, she maintains the same sleep schedule. Average total sleep time (in a 24 hour period): 11-12 hours. SLEEP-RELATED DETAILS Preferred sleep position: side or back Breathing disturbances and other behaviors during sleep: no snoring, no witnessed apneas even without CPAP. Moves around a lot. No falling out of bed or injuries. No significant JACKIE. No sleep walking or evidence of behaviors she is unaware of. Bruxism: No GERD or aspiration: Yes if due to diet, rarely She does not report having an urge to move the legs in the evening (when resting) that is accompanied or caused by uncomfortable and/or unpleasant sensations in the legs. She does have a general sense of restlessness during the day and night. She has been told that she has leg kicking during sleep. She denies any history of parasomnias. Excessive daytime sleepiness / fatigue is a problem. Excessive Daytime sleepiness/fatigue has been a problem for 20 years. There is a history of viral illness (polio) prior to the start of daytime sleepiness. She denies sleep paralysis. Sleep-related hallucinations - sometimes feels someone sit on the bed but might be her leg movements. Cataplexy - very convincingly denies. WAKE-RELATED DETAILS She does not work. She is retired. She does not have difficulty with memory or concentration. She denies falling asleep or dozing off when driving. She does not take naps with modafinil. Before modafinil she would nap for 30-60 minutes a day. Would doze a lot. She does drink 1-2 caffeinated beverages per day. There has not been a recent change in weight. Has gradually gained some weight over time. Is at her maximum weight. Patient Questionnaires Sleep Scores PAST TREATMENTS: Auto CPAP 6-12 cmH2O with EPR 3 PRIOR SLEEP STUDIES: None available for review No past medical history on file. No past surgical history on file. There is no problem list on file for this patient. Allergies As of Date: 03/21/2023 (Not on File) Fully Assessed 03/21/2023 CURRENT MEDICATIONS: losartan potassium (LOSARTAN ORAL) Take by mouth. INDAPAMIDE ORAL Take by mouth. atorvastatin (LIPITOR) 40 mg tablet Take 40 mg by mouth once daily. clonazePAM (KLONOPIN) 0.5 mg tablet Take 0.5 mg by mouth daily at bedtime. 1.5 tablets at night escitalopram oxalate (LEXAPRO) 20 mg tablet Take 20 mg by mouth daily at bedtime. tiZANidine (ZANAFLEX) 4 mg tablet Take 4 mg by mouth daily at bedtime. 1.5 tablets at bedtime rizatriptan (MAXALT BUTTON TUFTING MACHINE OPERATOR) 10 mg disintegrating tablet Take 10 mg by mouth as needed. As needed for migraine SOCIAL HISTORY: FAMILY HISTORY: No family history on file. There is a family history of: Sleep apnea. Relative: Father PHYSICAL EXAMINATION: Vital Signs: BP 117/80 (BP Site: Left Arm, BP Position: Sitting, BP Cuff Size: Regular Adult) Pulse 64 Ht 164 cm (5' 4.57 ) Wt 64.9 kg (143 lb) SpO2 97% BMI 24.12 kg/m General: Comfortable, no acute distress HEENT: normocephalic, atraumatic Lungs: no respiratory distress, normal work of breathing on RA Cardiac: well perfused GI: nondistended Extremities: no edema, cyanosis or clubbing present Neurological:. Answers questions appropriately, no focal deficits. IMPRESSION/PLAN: G47.19 Excessive daytime sleepiness (primary encounter diagnosis) R06.83 Snoring G47.33 JOSE ANGEL (obstructive sleep apnea) 67 year old female with history of JOSE ANGEL on CPAP, EDS (possibly ?IH secondary to polio) on modafinil, tonsillectomy, breast reduction surgery, sinus surgery, HTN, HLD, and migraines presents to discuss CPAP alternatives. She is maxing out her CPAP at 12 cmH2O nearly nightly (per download). She feels she sleeps poorly with CPAP due to the mask, headgear, tubing, etc. She hates using it - feels she wears it for a few hours and then takes it off so she can finally sleep soundly. Interested in Inspire however per outside notes, AHI was 11 on a prior sleep study which is not available for my review, and Inspire is indicated only for moderate-severe JOSE ANGEL. Recommend OAT for mild JOSE ANGEL. Plan: - HSAT - Referral to dentistry for OAT - Continue using CPAP in meantime. If not a candidate for OAT and ends up needing CPAP for longer term, recommend increasing her max pressure because she is maxing it out nearly nightly. Will keep as is for now since we are changing treatment modalities. - Follow up 2 weeks after sleep study for results Keysha Henry DO I spent a total of 60 minutes on the date of the service which included preparing to see the patient, [id number] patient care, completing clinical documentation, obtaining and/or reviewing separately obtained history, performing a medically appropriate examination, counseling and educating the patient/family/caregiver, ordering medications, tests, or procedures, and communicating results to the patient/family/caregiver. documented in this encounter [facility] 03-21-2023 Miscellaneous Notes Images from the original note were not included. documented in this encounter [facility] 12-26-2022 Note PROCEDURE: XR FOOT R T MIN 3 VIEWS COMPARISON: 11/28/2022 HISTORY: Pain in right foot FINDINGS: BONES:No acute fracture, dislocation or mechanical failure. Remote partial resection of the posterior calcaneus. Subtalar fusion with cannulated screws. Fixation with multiple plates and screws across the medial and lateral hindfoot midfoot and base of the first metatarsal with fusion of the first interphalangeal joint. Moderate degenerative changes, stable SOFT TISSUES:Negative. No visible soft tissue swelling. EFFUSION:None visible. OTHER: Negative. IMPRESSION: Stable postsurgical and degenerative changes Electronically authenticated by: NINO BRADSHAW Date: 2022-12-26 07:35 [facility] 11-28-2022 Note PROCEDURE: XR FOOT R T MIN 3 VIEWS HISTORY: Pain in right foot ; follow-up suspected metatarsal stress fracture COMPARISON: XR foot right 11/07/2022 FINDINGS: BONES:Prior fusion of the talocalcaneal, talonavicular, calcaneocuboid, mid first metatarsal, and first toe interphalangeal joint. No evidence of hardware fracture or loosening. No bone fracture or dislocation. SOFT TISSUES:No visible soft tissue swelling. EFFUSION:None visible. OTHER: Negative. IMPRESSION: 1. Stable surgical changes without evidence of hardware failure or change in alignment. Electronically authenticated by: CAMI WARREN Date: 2022-11-28 14:04 [facility] 11-08-2022 Note PROCEDURE: XR FOOT R T MIN 3 VIEWS COMPARISON: None. HISTORY: Pain in right foot FINDINGS: BONES:Stable fusion of the first interphalangeal joint. Osteotomy and plate placement first metatarsal. Subtalar fusion with suspected posterior calcaneal osteotomy. Midfoot hindfoot fusion with dorsal plate and screws. Moderate diffuse degenerative changes. SOFT TISSUES:Negative. No visible soft tissue swelling. EFFUSION:None visible. OTHER: Negative. IMPRESSION: Stable degenerative and postsurgical changes Electronically authenticated by: NINO BRADSHAW Date: 2022-11-08 14:45 [facility] 10-23-2022 Evaluation note Encounter Date Diagnosis Assessment Notes Oct, Obstructive sleep apnea (ICD-10 - G47.33) Fortunately she is using and benefiting from treatment. However she does have residual fatigue despite control of AHI and adequate usage time. She could have breakthrough sleepiness after control of sleep apnea, but may also have other sleep disorders present. It is conceivable that medication effects are also contributing to her fatigue. She has difficulty tolerating positive airway pressure treatment and is very interested in Inspire Therapy (see below). In the meantime she is going to continue using her device Oct, Excessive daytime sleepiness (ICD-10 - G47.19) She has considerable excessive daytime sleepiness despite 7 hours of utilization and control of sleep apnea. It is possible that other conditions contribute to her fatigue: She could have persistent fatigue after control of obstructive sleep apnea; she could have medication side effects leading to daytime fatigue; her differential does include postpolio syndrome causing tiredness; and it is possible that narcolepsy has been present as she does have hypnagogic hallucinations and has had some episodes that could be cataplexy. I discussed these issues with her in detail. She is unable to function without taking the modafinil, indicating how severe her EDS is. After extensive discussion she would like to work on the insomnia and sleep patterns in hopes of being able to reduce her reliance on alprazolam, and she will return to discuss progress in a couple months Oct, Other insomnia (ICD-10 - G47.09) While she reports she is unable to fall asleep without taking both tizanidine and alprazolam, her difficulty falling asleep may have more to do with her very long time in bed (11 to 13 hours). Since the body clock since it scheduled based on awakening times, a regular 9 AM awakening time would usually cause sleepiness and sleep onset around 1 AM. Going to bed at 9:30 PM, 1 would not expect her to be able to fall asleep at all. In this context it is not really in the insomnia. I extensively discussed the circadian rhythm system, and emphasized the importance of awakening time and setting appropriate schedules. I advised her to get up every day at 8 AM, and encouraged her to stay awake and out of the bed until 11 PM. She can take tizanidine at that time but I suspect she will be able to get away with skipping the alprazolam on that schedule. Oct, Intolerance of continuous positive airway pressure (CPAP) ventilation (ICD-10 - Z78.9) Although she has effectively used positive airway pressure treatment, she finds it very difficult to tolerate and continues to have excessive sleepiness despite using the machine for more than 6 hours per night. She hates the experience of positive airway pressure treatment and is interested in Inspire Therapy. However, her original sleep study 5 years ago showed an AHI of 11 which would be below the threshold for qualification in Inspire Therapy. I discussed inspire, its mechanisms of action, its advantages, and its disadvantages. I offered repeat polysomnography to see if she now qualifies, and she is willing to consider that though she is not ready to go forward with that step. 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 We hope to avoid this vicious cycle through good sleep hygiene and other changes as outlined above. She should continue to have significant daytime fatigue, further evaluations may be appropriate Oct, Hypnagogic hallucinations (ICD-10 - R44.2) She does have history of hypnagogic hallucinations with a variety of symptoms present. This alone does not prove narcolepsy by any means, but in the context of excessive daytime sleepiness and especially with possible cataplexy we have to be open to the possibility. We will address other factors first, but I discussed the diagnosis and suggested that down the road PSG with MSLT could be helpful in confirming the diagnosis and opening the door to a wide range of potential treatments Oct, Cataplexy (ICD-10 - G47.411) She does have some episodes that sound suspicious for classical cataplexy. I extensively reviewed the variety of presentations this can have, and encouraged her to watch for any other of the more subtle findings. We will discuss this further on return Oct, Other Call if any questions or problems. Patient is advised to work on healthy diet choices and appropriate servings, weight control, regular exercise as directed, and reduce fat intake. Use machine regularly, and keep up with mask changes as needed. Call if problems with mask toleration, increased sleepiness, or poor response to treatment. . [facility] Other 02-22-2023 NotePROCEDURE: XR FOOT RT MIN 3 VIEWS HISTORY: Pain in right foot ; dorsal midfoot-forefoot pain COMPARISON: XR foot right 10/11/2020 FINDINGS: BONES:Prior calcaneal osteotomy and repair. Fusion of the talocalcaneal and talonavicular joints. Fusion of the calcaneal-cuboid joint. Surgical plate and screws overlying first metatarsal diaphysis. Fusion of first toe interphalangeal joint via lag screw and bone staple. Moderate degenerative changes of the tarsal-metatarsal joints. Posttraumatic changes versus prior resection of part of the head of the fourth proximal phalanx. SOFT TISSUES:Mild dorsal soft tissue swelling. EFFUSION:None visible. OTHER: Negative. IMPRESSION: 1. Stable surgical changes without evidence of hardware failure or change in alignment. 2. No acute or suspicious findings to account for patient's symptoms. Electronically authenticated by: CAMI WARREN Date: 2022-10-16 10:29[facility]10[facility] Evaluation note* Encounter Date Diagnosis Assessment Notes Treatment Notes Treatment Clinical Notes May, Acute pain of left knee (ICD-10 - M25.562) [facility] Other 09-15-2022 Evaluation note* Encounter Date Diagnosis Assessment Notes Treatment Notes Treatment Clinical Notes Apr, Acute pain of left knee (ICD-10 - M25.562) Apr, Patellofemoral pain syndrome of left knee (ICD-10 - M22.2X2) Apr, Neck muscle spasm (ICD-10 - M62.838) Apr, Right rotator cuff tendinitis (ICD-10 - M75.81) Apr, Other In regards to t he left knee, I think she has a good regimen in place. Continue the meloxicam and Voltaren gel as well as her home exercises. If the knee flares up she can call and we can do steroid injection in the future. In regards to her neck pain and shoulder pain, I think this could be interrelated. She certainly has some degenerative changes noted on her x-ray. She also may have some neurologic changes in her right upper extremity but this could also be related to just rotator cuff tendinitis. As an initial treatment, recommended continuing the meloxicam which he is already on for any me getting into physical therapy to work on some top soft tissue related therapy for neck as well as rotator cuff strengthening. I will see her back in 6 to 8 weeks to check on her progress. At that time if we need to we can consider an MRI for her spine and/or shoulder or consider a steroid injection in the subacromial space to see if this is more shoulder related. [facility] Other 05-26-2022 Evaluation note* Encounter Date Diagnosis Assessment Notes Treatment Notes Treatment Clinical Notes December, Acute pain of left knee (ICD-10 - M25.562) December, Other I had a long discussion with the patient regarding the etiology of her symptoms and the treatment options. I explained to her that her x-rays overall I think look pretty good from an arthritic standpoint. There may be some sclerosis but no significant joint space narrowing. The overall bony structure compared to the contralateral side is smaller and has much less bone density. There may be some dysplastic characteristics as well in the distal femur. I think that these findings on x-ray fit with her history of polio quite well. I explained to her that some of her pain may be osteoarthritic related, muscle weakness, or even inflammation of the synovial tissue. At this point in time I recommended starting on an oral anti-inflammatory which we prescribed her meloxicam 15 mg. I also recommended and prescribed Voltaren gel that she can use 4-5 times a day. Furthermore, recommended that she use Tylenol up to 3000 mg daily for pain. I will plan to see her back in 2 months for reevaluation. If at that time she still having significant discomfort and is more constantly we can consider an injection. However, I think in the long run she may benefit more from physical therapy to work on overall strengthening of the lower extremity. We will discuss this again at her next visit. [employer] [employer] Other Evaluation noteNo assessment information available [facility] Work Phone: Evaluation note* Diagnosis Excessive daytime sleepiness- Primary Snoring Other dyspnea and respiratory abnormality JOSE ANGEL (obstructive sleep apnea) Obstructive sleep apnea (adult) (pediatric) [facility] Obstructive sleep apnea- Primary Obstructive sleep apnea (adult) (pediatric) Excessive daytime sleepiness Hypersomnia Hypersomnia, unspecified [facility] Diagnosis Onset Date Resolution Status Sore throat noneactive [facility] Work Phone: Evaluation note* Diagnosis Postmenopausal atrophic vaginitis- Primary Dyspareunia in female Cystocele, midline Cervical cancer screening Screening for malignant neoplasm of the cervix Other screening mammogram documented in this encounter [facility] HealthcareEvaluation note* Diagnosis Daytime hypersomnolence documented in this encounter [facility] Healthcare[facility]* Diagnosis PLMD (periodic limb movement disorder) Periodic limb movement disorder documented in this encounter [facility]* Diagnosis PLMD (periodic limb movement disorder) Periodic limb movement disorder Daytime hypersomnolence documented in this encounter [facility] HealthcareEvaluation note* Diagnosis Periodic limb movement- Primary Periodic limb movement disorder Migraine without aura and without status migrainosus, not intractable (CMS/HCC) Depression, unspecified depression type (CMS/HCC) Restless legs syndrome (RLS) Anesthesia of skin Disturbance of skin sensation Obstructive sleep apnea Obstructive sleep apnea (adult) (pediatric) documented in this encounter [facility] HealthcareEvaluation note* Diagnosis Cervicalgia PLMD (periodic limb movement disorder) Periodic limb movement disorder Daytime hypersomnolence documented [facility] encounter [facility]* Diagnosis Periodic limb movement- Primary Periodic limb movement disorder Migraine without aura and without status migrainosus, not intractable (CMS/HCC) documented in this encounter [facility] HealthcareEvaluation note* Diagnosis Essential hypertension Unspecified essential hypertension [facility] Diagnosis Daytime hypersomnolence [facility] Diagnosis Spinal stenosis of lumbar region with neurogenic claudication- Primary Spinal stenosis of lumbar region with neurogenic claudication- Primary [facility]* Diagnosis Cervicalgia Daytime hypersomnolence PLMD (periodic limb movement disorder) Periodic limb movement disorder documented in this encounter [facility]* Diagnosis Disorder of sacrum- Primary Disorders of sacrum [facility]* Diagnosis Daytime hypersomnolence documented in this encounter [facility]* Diagnosis Closed displaced fracture of nasal bone, sequela- Primary Facial pain Headache Hypertrophy of inferior nasal turbinate Hypertrophy of nasal turbinates 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, subsequent encounter [facility] Diagnosis Herpes simplex type 1 infection Herpes simplex without mention of complication [facility] Diagnosis 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, subsequent encounter [facility] Diagnosis Periodic limb movement- Primary Periodic limb movement disorder Migraine without aura and without status migrainosus, not intractable (CMS/HCC) Foot drop, right Other acquired deformity of ankle and foot PLMD (periodic limb movement disorder) Periodic limb movement disorder [facility] Diagnosis Closed displaced fracture of nasal bone, [...] septum Sialolith Sialolithiasis documented in this encounter [facility] general Narrative - Reported* Type Description Date Medical History polio Medical History high cholesterol Medical History high blood pressure Medical History migraine headache Medical History JOSE ANGEL Surgical History Foot Surgery-right tendon trans jonh Surgical History tonsillectomy Surgical History breast reduction Surgical History sinus surgery [facility] Other InstructionsNot on filedocumented in this encounter [facility] MRI/CT (Routine) - Closed Specialty Diagnoses / Procedures Referred By Corine cherry Referred To Contact CT IMAGING Diagnoses 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, subsequent encounter Procedures CT FACIAL BONE/ATUL WO IVCON CT MAXILLOFACIAL W/O CONTRAST MATERIAL Radha Zelaya MD [address] [place] [address] Phone: tel: fax: [facility] [place] [id number] Referral ID Status Reason Start Date Expiration Date V isits Requested Visits Authorized [id number] Closed Auto-Generate d Referral 11/25/2024 01/24/2025 1 1 [facility] Summary Purpose Family History Relationship Condition Age at Onset Recorded Date/T ana rosa Not Specified Status post coronary artery bypass graft Unknown father Myocardial infarction Unknown Relationship Condition Age at Onset Recorded Date/T ana rosa mother Status post coronary artery bypass graft Unknown father Myocardial infarction Unknown father Unknown Malignant neoplasm Unknown mother Heart disease Unknown Unknown sister Malignant neoplasm Unknown Heart disease Unknown Advance Directives Advance Directive Response Recorded Date/ Time Advance Directives No March 03 12:19pm Advance Directive Response Recorded Date/ Time Advance Directives No March 03 1:19pm Chief Complaint and Reason for Visit Chief Complaint self ref pt on cpap Chief Complaint Exposure to strep, s ore throat Reason for Visit Sore throat Reason for Referral Specialty Diagnoses / Procedures Referred By Corine cherry Referred To Contact Diagnoses Daytime hypersomnolence Eleni Hanson NP [address] [facility] [address] [place] [address] Referral ID Status Reason Start Date Expiration Date V isits Requested Visits Authorized [id number] Pending Review 05/20/2024 11/16/2024 1 1 Specialty Diagnoses / Procedures Referred By Corine cherry Referred To Contact Dentistry Diagnoses JOSE ANGEL (obstructive sleep apnea) Procedures CONSULT TO DENTISTRY OFFICE/OUTPATIENT NEW HIGH MDM 60-74 MINUTES Keysha Henry DO [address] [place] [address] Referral ID Status Reason Start Date Expiration Date Visits Requested Visits Authorized [id number] Pending Review PCP Requested Referral 03/21/2023 03/20/2024 1 1 Specialty Diagnoses / Procedures Referred By Corine cherry Referred To Contact [facility] Diagnoses Excessive daytime sleepiness Snoring Procedures HOME SLEEP APNEA TEST (HSAT) SLEEP STD AIRFLOW HRT RATE&O2 SAT EFFORT UNATT Keysha Henry DO [address] [facility] [address] [place] [address] [facility] [address] [place] [address] Referral ID Status Reason Start Date Expiration Date Visits Requested Visits Authorized [id number] Authorized Auto-Generat ed Referral 03/21/2023 03/20/2024 1 1 Additional Source Comments INFORMATION SOURCE (unrecogn ized section and content) DATE CREATED AUTHOR 01/03/2022 [facility] DATE CREATED AUTHOR AUTHOR'S ORGANIZ ATION 11/01/2022 [facility] DATE CREATED AUTHOR AUTHOR'S ORGANIZ ATION 01/02/2023 [facility] DATE CREATED AUTHOR AUTHOR'S ORGANIZ ATION 08/07/[address] [facility] DATE CREATED AUTHOR AUTHOR'S ORGANIZ ATION 08/07/2024 [facility] DATE CREATED AUTHOR AUTHOR'S ORGANIZ ATION 10/07/2024 [facility] DATE CREATED AUTHOR AUTHOR'S ORGANIZ ATION 11/28/2024 [facility] DATE CREATED AUTHOR AUTHOR'S ORGANIZ ATION 12/11/2024 [facility] DATE CREATED AUTHOR AUTHOR'S ORGANIZ ATION 01/11/2025 [facility] REASON FOR VISIT (unrecogniz ed section and content) Reason Comments PAP Therapy Follow Up Reason Comments New Patient On cpap for 4-5 year s. Feels cpap is not helping her. Wants to discuss [employer]. Reason Comments Apnea Follow Up Reason Comments Med Refill Reason Comments Migraine PLMD Reason Comments Med Refill Reason Comments Back Pain Neck Pain Reason Comments Back Pain Reason Comments Consult Left side worse than right. Had surgery before in [place] [employer] about 35 years ago. Reason Comments Follow Up Care Teams (unrecognized sec tion and content) Team Status: Active Member Role Status Dates Dewey Wolfe DO Primary Care Provider Active Team Status: Inactive Member Role Status Dewey DavisDO jarett Primary Care Provider Active Sta rt: March 03, 2024 End: March 03, 2024 Ayana Knight APRN Attending Provider Active S tart: March 03, 2024 End: March 03, 2024 Team Status: Inactive Member Role Status Dewey Wolfe DO Primary Care Provider Active Nino Carmona MD Attending Provider Active Special Events Coordinator Relationship Specialty Start Date End Date Eleni Hanson [address] [place] [address] 12/05/22 Special Events Coordinator Relationship Specialty Start Date End Date Eleni Hanson [address] [place] [address] 12/05/22 Special Events Coordinator Relationship Specialty Start Date End Date Eleni Hanson [address] [place] [address] 12/05/22 Special Events Coordinator Relationship Specialty Start Date End Date Eleni Hanson DIRECTOR EPIDEMIOLOGY [address] [place] [address], [place] [address] 12/05/22 Special Events Coordinator Relationship Specialty Start Date End Date YinaherminioEleni cabral, DIRECTOR EPIDEMIOLOGY [address] [place] [address], [place] [address] 12/05/22 Special Events Coordinator Relationship Specialty Start Date End Date Dewey Wolfe MD [address] [place] [address] PCP - General Internal Medicine 02/02/24 Special Events Coordinator Relationship Specialty Start Date End Date Dewey Wolfe MD [address] [place] [address] PCP - General Internal Medicine 02/02/24 Special Events Coordinator Relationship Specialty Start Date End Date Dewey Wolfe MD [address] [place] [address] PCP - General Internal Medicine 02/02/24 Special Events Coordinator Relationship Specialty Start Date End Date Dewey Wolfe MD [address] [place] [address] PCP - General Internal Medicine 02/02/24 Special Events Coordinator Relationship Specialty Start Date End Date Dewey Wolfe MD [address] [place] [address] PCP - General Internal Medicine 02/02/24 Special Events Coordinator Relationship Specialty Start Date End Date Dewey Wolfe MD [address] [place] [address] PCP - General Internal Medicine 02/02/24 Special Events Coordinator Relationship Specialty Start Date End Date Dewey Wolfe MD [address] [place] [address] PCP - General Internal Medicine 02/02/24 Special Events Coordinator Relationship Specialty Start Date End Date Dewey Wolfe MD [address] [facility] [place] [address] PCP - General Internal Medicine 02/02/24 Special Events Coordinator Relationship Specialty Start Date End Date Dewey Wolfe MD [address] [place] [address] PCP - General Internal Medicine 02/02/24 Special Events Coordinator Relationship Specialty Start Date End Date Dewey Wolfe DO [address] [place] [address] PCP - General Internal Medicine 07/23/17 Special Events Coordinator Relationship Specialty Start Date End Date Dewey Wolfe MD [address] [place] [address] PCP - General Internal Medicine 02/02/24 Special Events Coordinator Relationship Specialty Start Date End Date Dewey Wolfe DO [address] [place] [address] PCP - General Internal Medicine 07/23/17 Special Events Coordinator Relationship Specialty Start Date End Date Dewey Wolfe MD [address] [place] [address] PCP - General Internal Medicine 02/02/24 Special Events Coordinator Relationship Specialty Start Date End Date Dewey Wolfe DO [address] [place] [address] PCP - General Internal Medicine 07/23/17 Special Events Coordinator Relationship Specialty Start Date End Date Eleni Hanson DIRECTOR EPIDEMIOLOGY [address] [place] [address] 12/05/22 Special Events Coordinator Relationship Specialty Start Date End Date Eleni Hanson CNP [address] [place] [address] 12/05/22 Special Events Coordinator Relationship Specialty Start Date End Date Dewey Wolfe MD [address] [place] [address] PCP - General Internal Medicine 02/02/24 Special Events Coordinator Relationship Specialty Start Date End Date Eleni Hanson CNP [address] [place] [address] 12/05/22 Goals (unrecognized section and content) Goals may be documented in a n alternate section Source Comments (unrecognize d section and content) In the event this informatio n is protected by the Federal Confidentiality of Alcohol and Drug Abuse Patient Records regulations: The Federal rules restrict any use of the information to criminally investigate or prosecute any alcohol or drug abuse patient.[facility] the event this information is protected by the Federal Confidentiality of Alcohol and Drug Abuse Patient Records regulations: The Federal rules restrict any use of the information to criminally investigate or prosecute any alcohol or drug abuse patient.[facility] the event this information is protected by the Federal Confidentiality of Alcohol and Drug Abuse Patient Records regulations: The Federal rules restrict any use of the information to criminally investigate or prosecute any alcohol or drug abuse patient.[facility] the event this information is protected by the Federal Confidentiality of Alcohol and Drug Abuse Patient Records regulations: The Federal rules restrict any use of the information to criminally investigate or prosecute any alcohol or drug abuse patient.[facility] the event this information is protected by the Federal Confidentiality of Alcohol and Drug Abuse Patient Records regulations: The Federal rules restrict any use of the information to criminally investigate or prosecute any alcohol or drug abuse patient.[facility] the event this information is protected by the Federal Confidentiality of Alcohol and Drug Abuse Patient Records regulations: The Federal rules restrict any use of the information to criminally investigate or prosecute any alcohol or drug abuse patient.[facility] the event this information is protected by the Federal Confidentiality of Alcohol and Drug Abuse Patient Records regulations: The Federal rules restrict any use of the information to criminally investigate or prosecute any alcohol or drug abuse patient.[facility] the event this information is protected by the Federal Confidentiality of Alcohol and Drug Abuse Patient Records regulations: The Federal rules restrict any use of the information to criminally investigate or prosecute any alcohol or drug abuse patient.[facility] FOR RECORDS PERTAINING TO PATIENTS WHO ARE OR HAVE BEEN ENROLLED IN A CHEMICAL DEPENDENCY/SUBSTANCEABUSE PROGRAM, SOME INFORMATION MAY BE OMITTED. This clinical summary was aggregated from multiple sources. Caution should be exercised in using it in the provision of clinical care. This summary normalizes information from multiple sources, and as a consequence, information in this document may materially change the coding, format and clinical context of patient data. In addition, data may be omitted in some cases. CLINICAL DECISIONS SHOULD BE BASED ON THE PRIMARY CLINICAL RECORDS. [facility]. provides no warranty or guarantee of the accuracy or completeness of information in this document.
== END 2025-01-21 13:45 | disposition home or self-care (01) ==
LOC: RAD 13:45
PROVIDERS: PCP Internal Medicine; Visit Provider Podiatrist Foot & Ankle Surgery
DX: M25.571 Pain in right ankle and joints of right foot (principal)
CPT/HCPCS: 73610